=== PATIENT | male | born 1970 | race Two or more races ===

== ENCOUNTER → 2016-12-18 | Emergency (ER) | payer MEDICAID, MEDICARE | END | disposition left against medical advice (07) | LOC: ER 22:37 | DX: M79.673 Pain in unspecified foot (principal); Z53.21 Procedure and treatment not carried out due to patient leaving prior to being seen by health care provider ==

== ENCOUNTER 2017-05-08 15:55 | Emergency (ER) | payer MEDICARE ==
[~2017-05-08] VITALS: Ht 182.9 cm; Wt 113.4 kg
[2017-05-08 19:00] VITALS: BP 146/73
== END 2017-05-08 19:21 | disposition home or self-care (01) ==
LOC: ER 15:59
DX: L02.11 Cutaneous abscess of neck (principal); I10 Essential (primary) hypertension; F17.210 Nicotine dependence, cigarettes, uncomplicated

== ENCOUNTER 2018-11-10 23:50 | Emergency (ER) | payer MEDICARE, OTHER ==
[~2018-11-10] VITALS: Ht 180.3 cm; Wt 111.1 kg
[2018-11-11] MEDS ORDERED: KETOROLAC TROMETH 60MG/2ML VIAL IM ONE (03:30)
[2018-11-11] MEDS ORDERED: methylPREDNISolone SOD SUCC 125 MG/2 ML VL IM ONE (03:30)
[2018-11-11 04:37] VITALS: BP 141/88
== END 2018-11-11 04:15 | disposition home or self-care (01) ==
LOC: ER 23:54
DX: M54.42 Lumbago with sciatica, left side (principal); I10 Essential (primary) hypertension; F17.210 Nicotine dependence, cigarettes, uncomplicated
CPT/HCPCS: 72100; 96372; 99283; J1885; J2930

== ENCOUNTER 2019-11-04 01:21 | Emergency (ER) | payer SELFPAY ==
[~2019-11-04] VITALS: Ht 182.9 cm; Wt 113.4 kg
[2019-11-04 03:20] VITALS: BP 131/80
== END 2019-11-04 04:43 | disposition home or self-care (01) ==
LOC: ER 01:21
DX: H91.8X3 Other specified hearing loss, bilateral (principal); M13.862 Other specified arthritis, left knee; G89.29 Other chronic pain; M54.9 Dorsalgia, unspecified; F17.210 Nicotine dependence, cigarettes, uncomplicated
CPT/HCPCS: 73562

== ENCOUNTER 2019-12-21 12:52 | Emergency (ER) | payer OTHER ==
[~2019-12-21] VITALS: Ht 180.3 cm; Wt 95.3 kg
[2019-12-21] MEDS ORDERED: SODIUM CHLORIDE 0.9% 1,000 ML IVB ONE (13:25)
[2019-12-21 14:03] LABS: Basophils # (auto) 0 10 ^3/uL (0-0.2); Basophils % (auto) 0.3 % (0.0-2.0); Eosinophils # (auto) 0 10 ^3/uL (0-0.8); Eosinophils % (auto) 0.3 % (0.0-7.0); Hemoglobin 15.2 g/dL (13.5-17.5); Lymphocytes % (auto) 8.7 % (10.0-50.0); Mean Corpuscular Hgb Conc. 33.1 g/dL (32.0-36.0); Mean Corpuscular Volume 87.5 fL (80.0-100.0); Monocytes # (auto) 0.4 10 ^3/uL (0-1.3); Monocytes % (auto) 3.7 % (0.0-12.0); Neutrophils # (auto) 10.5 10 ^3/uL (1.6-8.6); Platelet Count (auto) 264 10^3/uL (140-450); Red Blood Cells 5.26 10^6/uL (4.5-5.90); Red Cell Distribution Width 14.2 % (11.8-14.3); White Blood Cell 12.1 10^3/uL (4.4-10.8)
[2019-12-21 14:23] LABS: Albumin 3.8 g/dL (3.4-5.0); Calcium 8.7 mg/dL (8.5-10.1); Magnesium 2.2 mg/dL (1.6-2.6); Potassium 3.7 mmol/L (3.5-5.1)
[2019-12-21 14:27] LABS: BUN/Creatinine Ratio 14.6; Bilirubin, Total 0.5 mg/dL (0.2-1.0); Total Protein 7.5 g/dL (6.4-8.2)
[2019-12-21 14:33] LABS: Urine Bacteria FEW /hpf (None Seen); Urine Blood 1+ /uL (Negative); Urine Specific Gravity 1.016 (1.001-1.035); Urine WBC 1 /hpf (0 - 3)
[2019-12-21] MEDS ORDERED: PANTOPRAZOLE 40 MG TAB PO ONE (15:00)
[2019-12-21 15:07] LABS: Amphetamine Screen, Urine POSITIVE (NEGATIVE); Barbiturate Scree,Urine NEGATIVE (NEGATIVE); Benzodiazephine Screen, Urine NEGATIVE (NEGATIVE); Cannabinoid Screen, Urine NEGATIVE (NEGATIVE); Cocaine Screen, Urine NEGATIVE (NEGATIVE); Opiate Scree,Urine NEGATIVE (NEGATIVE); Phencyclidine Screen, Urine NEGATIVE (NEGATIVE)
[2019-12-21] MEDS ORDERED: cefTRIAXone 1GM/50ML D5W 50 ML IV ONE (17:00)
[2019-12-21 20:00] VITALS: BP 140/83
== END 2019-12-21 20:30 | disposition short-term general hospital (02) ==
LOC: ER 12:52 → EDBD 12:52 → ER 20:30
DX: K80.10 Calculus of gallbladder with chronic cholecystitis without obstruction (principal); I10 Essential (primary) hypertension; F17.210 Nicotine dependence, cigarettes, uncomplicated
CPT/HCPCS: 36415; 71045; 74176; 76705; 80053; 80307; 81001; 82150; 83690; 83735; 84484; 85025; 93005; 96365; 99285; J0696; J7030; 96375

== ENCOUNTER 2020-06-22 15:43 | Emergency (ER) | payer OTHER | END 2020-06-22 17:50 | disposition left against medical advice (07) | LOC: ER 15:43 | DX: R07.89 Other chest pain (principal); F41.9 Anxiety disorder, unspecified; I10 Essential (primary) hypertension; F17.210 Nicotine dependence, cigarettes, uncomplicated | CPT/HCPCS: 93005 ==

== ENCOUNTER 2020-06-25 15:53 | Inpatient (IN) | payer OTHER ==
[~2020-06-25] VITALS: Ht 182.9 cm; Wt 107.1 kg
[2020-06-25] MEDS ORDERED: InsuLIN REG 1unit/0.01ml Soln (100units/ml) IV ONE (17:30)
[2020-06-25 17:36] LABS: Albumin 3.1 g/dL (3.4-5.0); Anion Gap 13 (5-15); Blood Urea Nitrogen 13 mg/dL (7-18); Calcium 8.5 mg/dL (8.5-10.1); Carbon Dioxide 21 mmol/L (21-32); Chloride 88 mmol/L (98-107); Potassium 4.4 mmol/L (3.5-5.1); Sodium 122 mmol/L (136-145)
[2020-06-25 17:38] LABS: Alanine Aminotransferase 50 U/L (16-61); Aspartate Aminotransferase 23 U/L (15-37); Bilirubin, Total 0.4 mg/dL (0.2-1.0); GFR African American 61 mL/min; GFR Non-African American 50 mL/min; Total Protein 6.8 g/dL (6.4-8.2)
[2020-06-25 17:39] LABS: Basophils # (auto) 0.1 10 ^3/uL (0-0.2); Basophils % (auto) 0.7 % (0.0-2.0); Eosinophils # (auto) 0.1 10 ^3/uL (0-0.8); Eosinophils % (auto) 0.9 % (0.0-7.0); Hematocrit 43.4 % (41.0-53.0); Hemoglobin 13.9 g/dL (13.5-17.5); Lymphocytes # (auto) 1.4 10 ^3/uL (0.4-5.4); Lymphocytes % (auto) 16.3 % (10.0-50.0); Mean Corpuscular Hemoglobin 29.3 pg (28.0-32.0); Mean Corpuscular Volume 91.3 fL (80.0-100.0); Monocytes # (auto) 0.5 10 ^3/uL (0-1.3); Monocytes % (auto) 5.5 % (0.0-12.0); Neutrophils # (auto) 6.7 10 ^3/uL (1.6-8.6); Neutrophils % (auto) 76.6 % (37.0-80.0); Nucleated Red Blood Cells % 0.2 %; Platelet Count (auto) 257 10^3/uL (140-450); Red Blood Cells 4.75 10^6/uL (4.5-5.90); Red Cell Distribution Width 14.2 % (11.8-14.3); White Blood Cell 8.8 10^3/uL (4.4-10.8)
[2020-06-25 17:44] LABS: Alkaline Phosphatase 121 U/L (45-117)
[2020-06-25] MEDS ORDERED: SODIUM CHLORIDE 0.9% 1,000 ML IV ONE ×2 (18:00)
[2020-06-25 18:07] LABS: BUN/Creatinine Ratio 8.4
[2020-06-25 18:08] LABS: Glucose 854 mg/dL (74-106)
[2020-06-26] MEDS ORDERED: InsuLIN REG 1unit/0.01ml Soln (100units/ml) IV ONE (04:30)
[2020-06-26] MEDS ORDERED: DEXTROSE (50%) 50ML SYRG IV PRN ×2 (05:15→12:15)
[2020-06-26] MEDS ORDERED: TEMAZEPAM 15 MG CAP PO PRN (05:15)
[2020-06-26] MEDS ORDERED: ACETAMINOPHEN 325 MG TAB PO PRN (05:15)
[2020-06-26] MEDS ORDERED: ONDANSETRON HCL 4 MG/2 ML VIAL IV PRN (05:15)
[2020-06-26] MEDS: ACCU-CHEK COMFORT CURVE STRIP VI SCH ×4 (06:00→21:38)
[2020-06-26 06:30] LABS: BUN/Creatinine Ratio 11.5; Calcium 8.5 mg/dL (8.5-10.1); Potassium 3.4 mmol/L (3.5-5.1)
[2020-06-26] MEDS: SODIUM CHLORIDE 0.9% 1,000 ML IV SCH ×2 (06:35→18:30)
[2020-06-26] MEDS: InsuLIN REG 1unit/0.01ml Soln (100units/ml) SC SCH ×4 (06:42→21:40)
[2020-06-26] MEDS: FAMOTIDINE 20 MG TAB PO SCH ×2 (09:12→21:38)
[2020-06-26] MEDS: amLODIPine BESYLATE 5 MG TAB PO SCH (09:20)
[2020-06-26 09:22] VITALS: BP 129/56
[2020-06-26] MEDS ORDERED: POTASSIUM CHL 20 Meq TABLET PO ONE (12:15)
[2020-06-26] MEDS ORDERED: metFORMIN HYDROCHLORIDE 500 MG TAB PO ONE (12:15)
[2020-06-26 13:00] VITALS: BP 129/68
--- NOTE | 2020-06-26 15:04 | NUR ---
MOIRA SMALL states they want to leave the floor Against Medical Advice (AMA) to go outside and smoke. Patient encouraged to stay on floor and not smoke. Patient advised of the risks of leaving AMA. Patient verbalized understanding and signed required AMA form no distress noted on departure patient ambulated independently.
[2020-06-26 17:00] VITALS: BP 125/59
[2020-06-26] MEDS ORDERED: AMLO5TAB15 PO (17:59)
[2020-06-26] MEDS ORDERED: MELO1TAB56 PO (17:59)
[2020-06-26] MEDS ORDERED: HYDR-531 PO (17:59)
--- NOTE | 2020-06-26 18:01 | NUR ---
Patient's called and provided list of current home meds, updated on [facility]. [facility]
[2020-06-26] MEDS: metFORMIN HYDROCHLORIDE 500 MG TAB PO SCH (18:14)
[2020-06-26 22:00] VITALS: BP 121/68
[2020-06-27] MEDS: SODIUM CHLORIDE 0.9% 1,000 ML IV SCH (04:47)
[2020-06-27 05:00] VITALS: BP 131/71
[2020-06-27 06:16] LABS: BUN/Creatinine Ratio 12.1; Calcium 8.2 mg/dL (8.5-10.1); Potassium 3.7 mmol/L (3.5-5.1)
[2020-06-27] MEDS: InsuLIN REG 1unit/0.01ml Soln (100units/ml) SC SCH ×2 (06:55→12:14)
[2020-06-27] MEDS: ACCU-CHEK COMFORT CURVE STRIP VI SCH ×2 (06:55→12:13)
[2020-06-27] MEDS: metFORMIN HYDROCHLORIDE 500 MG TAB PO SCH (08:00)
[2020-06-27 09:00] VITALS: BP 127/77
[2020-06-27] MEDS: amLODIPine BESYLATE 5 MG TAB PO SCH (10:05)
[2020-06-27] MEDS: FAMOTIDINE 20 MG TAB PO SCH (10:05)
--- NOTE | 2020-06-27 10:08 | NUR ---
at bedside MD Estes at bedside, aware of patient's status including labs, VS. MD spoke to patient extensively regarding Diagnosis and diabetes care at home including f/u with [facility] in one week. Patient aware he needs to call to change PCP and make own appointment he verbalized understanding. Patient returned demonstration of accu checks on self. Patient states he will go home to his "mother's house and she will pick him up" he states he wants to drop off new prescriptions at [facility] on his way home. Patient verbalized understanding. Will dc as ordered.
[2020-06-27] MEDS ORDERED: metFORMIN HYDROCHLORIDE 500 MG TAB PO ONE (10:30)
[2020-06-27 11:02] VITALS: BP 127/77
--- NOTE | 2020-06-27 11:13 | NUR ---
[id number] 06/27/20 - Faxed to [employer] nurse case management at [phone], order for home safety and diabetic evaluation, H/P and current progress note.pending review and set up of home health. Addendum: 06/27/20 at 1338 by Isa Driscoll RN [id number] 06/27/20 - Contacted by [employer] nurse case management Tomeka who stated patient has been accepted by [facility] who can be reached at [phone], Tomeka also stated services will start in 24-48 hours after discharge.
[2020-06-27 11:14] LABS: Urine Bacteria NONE SEEN /hpf (None Seen); Urine Blood Negative /uL (Negative); Urine Specific Gravity 1.029 (1.001-1.035); Urine WBC <1 /hpf (0 - 3)
--- NOTE | 2020-06-27 11:25 | NUR ---
assessment Patient is a 50 year old male who is alert and oriented. Patient did not want to speak to social service. I did inform patient he has a consult for safety and diabetic teaching. Patient said he agrees to home health. Patient did not want to talk about anything else or give any information. I infomred patient if he changed his mind to call me. I left my extension with patient. Isa commissions manager will satisfy home health order with [facility] commissions manager. Addendum: 06/27/20 at 1628 by Ester CARMICHAEL Amended: Links added.
--- NOTE | 2020-06-27 12:30 | NUR ---
Discharge instructions given as ordered. Encourage to follow up with PMD as instructed. All questions and concerns addressed. Patient verbalized understanding. Medication reconciliation form completed and copy given to patient. New prescriptions given to patient, and educated on need for use including s/e, s/s and contraindications. IV removed with catheter intact, pressure dressing applied. Patient awaiting ride at this time, no distress or sob noted at this time.
[2020-06-27 13:00] VITALS: BP 125/69
--- NOTE | 2020-06-27 13:21 | NUR ---
Patient ambulated to vehicle independently refused wheelchair. Patient ambulated with all personal belongings, His mother is waiting in ER parking at this time. No distress noted at time of departure.
[2020-06-27] MEDS ORDERED: metFORMIN HYDROCHLORIDE 500 MG TAB PO SCH (18:00)
== END 2020-06-27 14:00 | disposition home or self-care (01) | DRG 638 ==
LOC: ER 15:53 → OVERFLOW 15:54 → WEST WING 06-26 09:28
PROVIDERS: ADMIT Nurse Practitioner; ATTEND Internal Medicine Geriatric Medicine
DX: E11.65 Type 2 diabetes mellitus with hyperglycemia (principal); N17.9 Acute kidney failure, unspecified; E87.1 Hypo-osmolality and hyponatremia; E44.0 Moderate protein-calorie malnutrition; F17.210 Nicotine dependence, cigarettes, uncomplicated; E86.0 Dehydration; E87.6 Hypokalemia; I10 Essential (primary) hypertension; Z82.49 Family history of ischemic heart disease and other diseases of the circulatory system; Z68.29 Body mass index [BMI] 29.0-29.9, adult; Z91.19 Patient's noncompliance with other medical treatment and regimen; F12.90 Cannabis use, unspecified, uncomplicated
CPT/HCPCS: 36415; 71045; 80048; 80053; 81001; 82962; 83036; 84484; 85025; 93005; G0378; J1815

== ENCOUNTER 2020-07-01 08:24 | Emergency (ER) | payer OTHER ==
[~2020-07-01] VITALS: Ht 182.9 cm; Wt 99.8 kg
[~2020-07-01 08:24] MED LIST: AMLO5TAB15 PO; HYDR-531 PO; MELO1TAB56 PO
[2020-07-01] MEDS ORDERED: SODIUM CHLORIDE 0.9% 1,000 ML IV ONE ×2 (08:45→13:45)
[2020-07-01 09:53] LABS: Basophils # (auto) 0 10 ^3/uL (0-0.2); Basophils % (auto) 0.5 % (0.0-2.0); Eosinophils # (auto) 0.1 10 ^3/uL (0-0.8); Eosinophils % (auto) 1.5 % (0.0-7.0); Hematocrit 37.8 % (41.0-53.0); Hemoglobin 12.5 g/dL (13.5-17.5); Lymphocytes # (auto) 1.2 10 ^3/uL (0.4-5.4); Lymphocytes % (auto) 14.7 % (10.0-50.0); Mean Corpuscular Hemoglobin 28.7 pg (28.0-32.0); Mean Corpuscular Hgb Conc. 33.1 g/dL (32.0-36.0); Mean Corpuscular Volume 86.9 fL (80.0-100.0); Monocytes # (auto) 0.6 10 ^3/uL (0-1.3); Monocytes % (auto) 7.1 % (0.0-12.0); Neutrophils # (auto) 6.3 10 ^3/uL (1.6-8.6); Neutrophils % (auto) 76.2 % (37.0-80.0); Platelet Count (auto) 210 10^3/uL (140-450); Red Blood Cells 4.35 10^6/uL (4.5-5.90); Red Cell Distribution Width 13.7 % (11.8-14.3); White Blood Cell 8.3 10^3/uL (4.4-10.8)
[2020-07-01 10:07] LABS: Albumin 2.9 g/dL (3.4-5.0); Calcium 7.9 mg/dL (8.5-10.1); Potassium 4.3 mmol/L (3.5-5.1)
[2020-07-01 10:16] LABS: BUN/Creatinine Ratio 14.6; Bilirubin, Total 0.5 mg/dL (0.2-1.0)
[2020-07-01 10:29] LABS: Urine Bacteria NONE SEEN /hpf (None Seen); Urine Blood Negative /uL (Negative); Urine Specific Gravity 1.026 (1.001-1.035); Urine WBC 1 /hpf (0 - 3)
[2020-07-01] MEDS ORDERED: InsuLIN REG 1unit/0.01ml Soln (100units/ml) IV ONE (11:30)
[2020-07-01] MEDS ORDERED: INSULIN LISPRO (HUMAN) 100 UNITS/ML ML SC ONE (13:30)
[2020-07-01 14:43] VITALS: BP 145/76
== END 2020-07-01 15:32 | disposition left against medical advice (07) ==
LOC: EDBD 08:24 → ER 08:24
DX: E11.65 Type 2 diabetes mellitus with hyperglycemia (principal); F17.210 Nicotine dependence, cigarettes, uncomplicated; I10 Essential (primary) hypertension; Z91.19 Patient's noncompliance with other medical treatment and regimen
CPT/HCPCS: 36415; 80053; 81001; 82962; 83690; 83735; 84443; 85025; 96361; 96372; 96374; 99285; J1815; J7030

== ENCOUNTER 2021-05-24 07:30 | Emergency (ER) | payer OTHER ==
[~2021-05-24] VITALS: Ht 182.9 cm; Wt 99.8 kg
[~2021-05-24 07:30] MED LIST changes: +AMLO-489 PO; -AMLO5TAB15 PO
[2021-05-24] MEDS ORDERED: cefTRIAXone SOD 1,000 MG VL IM ONE (09:15)
[2021-05-24] MEDS ORDERED: IBUPROFEN 800 MG TAB PO ONE (09:15)
[2021-05-24 09:53] VITALS: BP 139/89
== END 2021-05-24 10:00 | disposition home or self-care (01) ==
LOC: ER 07:30 → EDBD 07:30 → ER 09:58
DX: K04.7 Periapical abscess without sinus (principal); E11.9 Type 2 diabetes mellitus without complications; I10 Essential (primary) hypertension; F17.210 Nicotine dependence, cigarettes, uncomplicated; Z79.899 Other long term (current) drug therapy
CPT/HCPCS: 96372; 99283; J0696

== ENCOUNTER 2021-12-10 19:41 | Emergency (ER) | payer OTHER ==
[~2021-12-10] VITALS: Ht 182.9 cm; Wt 104.3 kg
[2021-12-10 19:42] VITALS: BP 149/83
== END 2021-12-10 22:26 | disposition home or self-care (01) ==
LOC: ER 19:44
DX: K04.7 Periapical abscess without sinus (principal); E11.9 Type 2 diabetes mellitus without complications; I10 Essential (primary) hypertension; F17.210 Nicotine dependence, cigarettes, uncomplicated

== ENCOUNTER 2022-10-04 16:36 | Inpatient (IN) | payer OTHER ==
[~2022-10-04] VITALS: Ht 182.9 cm; Wt 108.3 kg
[2022-10-04] MEDS ORDERED: SODIUM CHLORIDE 0.9% 1,000 ML IV ONE ×2 (17:45)
[2022-10-04] MEDS ORDERED: InsuLIN REG 1unit/0.01ml Soln (100units/ml) IV ONE (17:45)
[2022-10-04 18:35] LABS: Basophils # (auto) 0.1 10 ^3/uL (0-0.2); Basophils % (auto) 0.9 % (0.0-2.0); Eosinophils # (auto) 0.2 10 ^3/uL (0-0.8); Eosinophils % (auto) 2.2 % (0.0-7.0); Hematocrit 50.3 % (41.0-53.0); Hemoglobin 15.9 g/dL (13.5-17.5); Lymphocytes # (auto) 2.6 10 ^3/uL (0.4-5.4); Lymphocytes % (auto) 23.3 % (10.0-50.0); Mean Corpuscular Hemoglobin 27.8 pg (28.0-32.0); Mean Corpuscular Hgb Conc. 31.7 g/dL (32.0-36.0); Mean Corpuscular Volume 87.6 fL (80.0-100.0); Monocytes # (auto) 0.7 10 ^3/uL (0-1.3); Monocytes % (auto) 5.8 % (0.0-12.0); Neutrophils # (auto) 7.6 10 ^3/uL (1.6-8.6); Neutrophils % (auto) 67.8 % (37.0-80.0); Red Blood Cells 5.74 10^6/uL (4.5-5.90); Red Cell Distribution Width 13.7 % (11.8-14.3); White Blood Cell 11.2 10^3/uL (4.4-10.8)
[2022-10-04 18:38] LABS: Albumin 3.5 g/dL (3.4-5.0); BUN/Creatinine Ratio 11.5; Calcium 9.4 mg/dL (8.5-10.1); Potassium 4.3 mmol/L (3.5-5.1)
[2022-10-04 18:40] LABS: Bilirubin, Total 0.3 mg/dL (0.2-1.0); Total Protein 7.1 g/dL (6.4-8.2)
[2022-10-04 20:11] VITALS: BP 123/90
[2022-10-04] MEDS ORDERED: SODIUM CHLORIDE 0.9% 1,000 ML IV SCH (22:15)
[2022-10-04] MEDS ORDERED: ACETAMINOPHEN 325 MG TAB PO PRN (22:15)
[2022-10-04] MEDS ORDERED: DOCUSATE SOD 100 MG CAP PO PRN (22:15)
[2022-10-04] MEDS ORDERED: ONDANSETRON HCL 4 MG/2 ML VIAL IV PRN (22:15)
[2022-10-04] MEDS ORDERED: DEXTROSE (50%) 50ML SYRG IV PRN (22:15)
[2022-10-04] MEDS ORDERED: cefTRIAXone 1GM/50ML D5W 50 ML IV ONE (22:15)
[2022-10-04] MEDS ORDERED: HYDROcodone-ACET 5/325MG TAB PO PRN (22:15)
[2022-10-04] MEDS ORDERED: MORPHINE SULFATE INJ 2 MG/ml SYRG IV PRN (23:15)
[2022-10-04] MEDS ORDERED: NITROGLYCERIN 0.4 MG SL TAB SL PRN (23:15)
[2022-10-05] MEDS ORDERED: ACCU-CHEK COMFORT CURVE STRIP VI SCH
[2022-10-05] MEDS ORDERED: InsuLIN REG 1unit/0.01ml Soln (100units/ml) SC SCH
[2022-10-05] MEDS ORDERED: ASPirin 81 mg TAB PO SCH (10:00)
[2022-10-05] MEDS ORDERED: ATORVASTATIN 20 MG TAB PO SCH (22:00)
[2022-10-05] MEDS ORDERED: cefTRIAXone 1GM/50ML D5W 50 ML IV SCH (22:00)
== END 2022-10-05 05:27 | disposition left against medical advice (07) | DRG 638 ==
LOC: ER 16:40 → OVERFLOW 23:09
PROVIDERS: ADMIT Nurse Practitioner Family; ATTEND Nurse Practitioner Family
DX: E11.65 Type 2 diabetes mellitus with hyperglycemia (principal); E87.1 Hypo-osmolality and hyponatremia; D72.829 Elevated white blood cell count, unspecified; F17.210 Nicotine dependence, cigarettes, uncomplicated; I10 Essential (primary) hypertension; M79.642 Pain in left hand; R51.9 Headache, unspecified; Z20.822 Contact with and (suspected) exposure to COVID-19; Z53.29 Procedure and treatment not carried out because of patient's decision for other reasons; R07.9 Chest pain, unspecified; Z82.3 Family history of stroke; Z90.49 Acquired absence of other specified parts of digestive tract; Z79.4 Long term (current) use of insulin
CPT/HCPCS: 36415; 36600; 80053; 82805; 82962; 84484; 84702; 85025; 87426; 96361; 96365; 96372; 96375; G0378; J0696; J1815

== ENCOUNTER 2023-03-29 14:21 | Emergency (ER) | payer OTHER ==
[~2023-03-29] VITALS: Ht 182.9 cm; Wt 102.1 kg
[~2023-03-29 14:21] MED LIST changes: -AMLO-489 PO; +AMLO1TAB22 PO; +MELO-335 PO; -MELO1TAB56 PO
[2023-03-29 14:32] VITALS: TEMP 97
[2023-03-29] MEDS ORDERED: LACTATED RINGER'S 1,000 ML IV ONE (15:45)
[2023-03-29] MEDS ORDERED: METOCLOPRAMIDE HCL 5MG/ml INJ 2ml VIAL IV ONE (15:45)
[2023-03-29] MEDS ORDERED: TETANUS-DIPTH-ACEL PERTUSSIS 0.5ML SYR Tdap IM ONE (15:45)
[2023-03-29] MEDS ORDERED: TETRACAINE HCL 0.5% OPTH(EYE) SOLN 4ML EACHEYE ONE (15:45)
[2023-03-29] MEDS ORDERED: HYDROmorphone HCL 2 MG/ML VL/or syr IV ONE (15:45)
[2023-03-29] MEDS ORDERED: NEOMYCIN-BACITRACIN-POLYM UNITDOSE PKG TOP OINT TOP ONE (15:45)
[2023-03-29] MEDS ORDERED: KETOROLAC TROMETH 30 MG/ML 1ML VIAL IV ONE (15:45)
[2023-03-29 15:53] VITALS: PULSE 88; RESP 18; O2SAT 98
[2023-03-29] MEDS ORDERED: ACET-1304 PO (18:01)
[2023-03-29] MEDS ORDERED: NAPR-957 PO (18:01)
[2023-03-29] MEDS ORDERED: NEOMOIN6 EX (18:01)
[2023-03-29 19:00] VITALS: BP 135/109; PULSE 73; RESP 20; O2SAT 98
== END 2023-03-29 19:58 | disposition home or self-care (01) ==
LOC: ER 14:21
DX: T20.10XA Burn of first degree of head, face, and neck, unspecified site, initial encounter (principal); T26.01XA Burn of right eyelid and periocular area, initial encounter; T31.0 Burns involving less than 10% of body surface; T79.9XXA Unspecified early complication of trauma, initial encounter; I10 Essential (primary) hypertension; E11.9 Type 2 diabetes mellitus without complications; E78.5 Hyperlipidemia, unspecified; F17.210 Nicotine dependence, cigarettes, uncomplicated; Z90.49 Acquired absence of other specified parts of digestive tract; Z98.890 Other specified postprocedural states; Z79.1 Long term (current) use of non-steroidal anti-inflammatories (NSAID); Z79.899 Other long term (current) drug therapy; X08.8XXA Exposure to other specified smoke, fire and flames, initial encounter; Y93.89 Activity, other specified; Y92.098 Other place in other non-institutional residence as the place of occurrence of the external cause; Y99.8 Other external cause status
CPT/HCPCS: 90471; 90715; 96361; 96374; 96375; 99284; J1170; J1885; J2765

== ENCOUNTER 2023-08-05 18:18 | Emergency (ER) | payer OTHER ==
[~2023-08-05] VITALS: Ht 182.9 cm; Wt 104.7 kg
[~2023-08-05 18:18] MED LIST changes: +ACET-1304 PO; +NAPR-957 PO; +NEOMOIN6 EX
[2023-08-05] MEDS ORDERED: SODIUM CHLORIDE 0.9% 2,000 ML IV ONE (18:45)
[2023-08-05] MEDS ORDERED: InsuLIN REG 1unit/0.01ml Soln (100units/ml) SC ONE ×2 (19:00→22:30)
[2023-08-05 19:22] LABS: Basophils # (auto) 0.1 10 ^3/uL (0-0.2); Basophils % (auto) 0.7 % (0.0-2.0); Eosinophils # (auto) 0.2 10 ^3/uL (0-0.8); Eosinophils % (auto) 1.7 % (0.0-7.0); Hematocrit 47.9 % (41.0-53.0); Hemoglobin 15.8 g/dL (13.5-17.5); Lymphocytes # (auto) 2.7 10 ^3/uL (0.4-5.4); Lymphocytes % (auto) 25.7 % (10.0-50.0); Mean Corpuscular Hemoglobin 28.5 pg (28.0-32.0); Mean Corpuscular Hgb Conc. 32.9 g/dL (32.0-36.0); Mean Corpuscular Volume 86.5 fL (80.0-100.0); Monocytes # (auto) 0.5 10 ^3/uL (0-1.3); Neutrophils % (auto) 66.9 % (37.0-80.0); Nucleated Red Blood Cells % 0.2 %; Red Blood Cells 5.54 10^6/uL (4.5-5.90); Red Cell Distribution Width 13.9 % (11.8-14.3); White Blood Cell 10.5 10^3/uL (4.4-10.8)
[2023-08-05 19:32] LABS: Base Excess -0.5 mmol/L (-2.0-2.0)
[2023-08-05 19:38] LABS: Alanine Aminotransferase 30 U/L (7-40); Albumin 4.4 g/dL (3.2-4.8); Alkaline Phosphatase 119 U/L (46-116); Anion Gap 7 (5-15); Aspartate Aminotransferase 8 U/L (13-40); BUN/Creatinine Ratio 9.2 (10.0-20.0); Bilirubin, Total 0.3 mg/dL (0.2-1.0); Blood Urea Nitrogen 15 mg/dL (9-23); Calcium 9.4 mg/dL (8.7-10.4); Carbon Dioxide 28 mmol/L (20-30); Chloride 97 mmol/L (98-107); Potassium 4.4 mmol/L (3.5-5.1); Sodium 132 mmol/L (136-145)
[2023-08-05 19:44] LABS: Glucose 506 mg/dL (74-106)
[2023-08-05] MEDS ORDERED: INSU1INJ19 SC (23:00)
[2023-08-05] MEDS ORDERED: INSU100I28 IJ (23:00)
[2023-08-05 23:26] VITALS: BP 138/89; PULSE 87; RESP 18; TEMP 98.3; O2SAT 97
== END 2023-08-05 23:26 | disposition home or self-care (01) ==
LOC: ER 18:18
DX: E11.65 Type 2 diabetes mellitus with hyperglycemia (principal); I10 Essential (primary) hypertension; E78.5 Hyperlipidemia, unspecified; F17.210 Nicotine dependence, cigarettes, uncomplicated; Z98.890 Other specified postprocedural states; Z79.4 Long term (current) use of insulin; Z79.899 Other long term (current) drug therapy
CPT/HCPCS: 36415; 36600; 71045; 80053; 82010; 82805; 83605; 83690; 84484; 85025; 87040; 96360; 96361; 99284; J1815; J7030

== ENCOUNTER 2023-09-08 16:48 | Emergency (ER) | payer OTHER, MEDICAID ==
[~2023-09-08] VITALS: Ht 182.9 cm; Wt 100.0 kg
[~2023-09-08 16:48] MED LIST changes: +INSU100I28 IJ; +INSU1INJ19 SC
[2023-09-08 18:49] VITALS: BP 135/101; PULSE 102; RESP 18; TEMP 97.9; O2SAT 98
[2023-09-08] MEDS ORDERED: BENZOCAINE (DENTAL) 20 % SPRAY 60ML MT ONE (19:15)
== END 2023-09-08 20:05 | disposition home or self-care (01) ==
LOC: ER 16:48
DX: K14.8 Other diseases of tongue (principal); K14.6 Glossodynia; I10 Essential (primary) hypertension; E11.9 Type 2 diabetes mellitus without complications; E78.5 Hyperlipidemia, unspecified; F17.210 Nicotine dependence, cigarettes, uncomplicated; Z98.890 Other specified postprocedural states; Z79.899 Other long term (current) drug therapy

== ENCOUNTER 2024-03-14 21:42 | Emergency (ER) | payer MEDICAID, OTHER ==
[~2024-03-14] VITALS: Ht 182.9 cm; Wt 102.7 kg
[2024-03-14 21:42] VITALS: BP 144/84; PULSE 104; RESP 14; O2SAT 98
[~2024-03-14 21:42] MED LIST changes: -MELO-335 PO; +MELO15TA29 PO
== END 2024-03-15 05:59 | disposition left against medical advice (07) ==
LOC: ER 21:42
DX: R42 Dizziness and giddiness (principal); E11.9 Type 2 diabetes mellitus without complications
CPT/HCPCS: 80053

== ENCOUNTER 2025-03-10 22:46 | Emergency (ER) | payer OTHER ==
[~2025-03-10] VITALS: Ht 182.9 cm; Wt 104.5 kg
[2025-03-10 23:05] VITALS: BP 144/83; PULSE 72; RESP 20; TEMP 97.5; O2SAT 97
[2025-03-10] MEDS: DICYCLOMINE HCL (10MG/ML) 2 ML AMPULE IM ONE (23:15)
[2025-03-10] MEDS: ONDANSETRON HCL 4 MG/2 ML VIAL IM ONE (23:15)
[2025-03-10 23:26] LABS: Basophils # (auto) 0.1 10 ^3/uL (0-0.2); Basophils % (auto) 0.6 % (0.0-2.0); Eosinophils # (auto) 0.2 10 ^3/uL (0-0.8); Hematocrit 44.1 % (41.0-53.0); Hemoglobin 14.9 g/dL (13.5-17.5); Lymphocytes # (auto) 1.9 10 ^3/uL (0.4-5.4); Lymphocytes % (auto) 12.7 % (10.0-50.0); Mean Corpuscular Hemoglobin 28.2 pg (28.0-32.0); Mean Corpuscular Hgb Conc. 33.9 g/dL (32.0-36.0); Mean Corpuscular Volume 83.3 fL (80.0-100.0); Monocytes # (auto) 0.8 10 ^3/uL (0-1.3); Monocytes % (auto) 5.3 % (0.0-12.0); Neutrophils # (auto) 12.3 10 ^3/uL (1.6-8.6); Neutrophils % (auto) 80.4 % (37.0-80.0); Platelet Count (auto) 295 10^3/uL (140-450); Red Cell Distribution Width 14.4 % (11.8-14.3); White Blood Cell 15.4 10^3/uL (4.4-10.8)
[2025-03-10 23:42] LABS: Alanine Aminotransferase 18 U/L (7-40); Albumin 4.5 g/dL (3.2-4.8); Alkaline Phosphatase 101 U/L (46-116); Anion Gap 9 (5-15); Aspartate Aminotransferase 12 U/L (<34); BUN/Creatinine Ratio 11.8 (10.0-20.0); Bilirubin, Total 0.6 mg/dL (0.2-1.0); Blood Urea Nitrogen 14 mg/dL (9-23); Calcium 9.8 mg/dL (8.7-10.4); Carbon Dioxide 26 mmol/L (20-31); Chloride 102 mmol/L (98-107); Potassium 3.6 mmol/L (3.5-5.1); Sodium 137 mmol/L (136-145); Total Protein 7.1 g/dL (5.7-8.2)
[2025-03-10 23:51] LABS: Blood Alcohol < 3.0 mg/dL (<10); Glucose 157 mg/dL (74-106)
[2025-03-11 00:10] LABS: Lipase 29 U/L (12-53)
[2025-03-11] MEDS ORDERED: HYDROmorphone HCL 2 MG/ML VL/or syr IM ONE (01:45)
--- NOTE | 2025-03-11 01:49 | ED.PDOC ---
GI ASSESSMENT HPI Comments This patient is a morbidly obese 54-year-old male who arrives the ED today with complaints of [id number] bilateral lower abdominal pain with nausea and vomiting since earlier this afternoon after eating some possibly spoiled food. Patient states the symptoms came on this afternoon and have been unrelenting throughout the day. Patient denies any history of intra-abdominal concerns. Patient denies any recent travel or new food sources. Patient denies any fever but states intermittent nausea. Vital signs were stable on arrival. Chief Complaint: Abdominal Pain Time Seen by MD: 22:52 Primary Care Provider: NONE Reviewed Notes: Nurses Notes Allergies: Coded Allergies: NO KNOWN ALLERGIES (Unverified , 04/17/14) Home Meds Active Scripts Insulin Glargine (Basaglar Kwikpen) 100 Unit/Ml Inj, 10 UNIT SC DAILY@LUNCH for 31 Days, #1 INJ Prov:RAHUL PENA DO 08/05/23 Insulin Aspart (Novolog) 100 Unit/Ml Inj, 10 UNIT IJ DAILY@BREAKFAST for 31 Days, #1 INJ Prov:RAHUL PENA DO 08/05/23 Acetaminophen (Tylenol Extra Strength) 500 Mg Tab, 500 MG PO BID, #30 TAB Prov:JING US MD 03/29/23 Naproxen (Naproxen) 375 Mg Tab, 1 TAB PO BID, #60 TAB 1 Refill Prov:JING US MD 03/29/23 Keljoshp-Ynxnrvdufy-Rmduddkhq- (Neosporin + Pain Relief) Relf Max Oin, 1 MAX EX TID, #120 OIN Prov:JING US MD 03/29/23 Reported Medications Hydrocodone-Acetaminophen (Jewett 10-325 mg) 1 Tab Tab, 1 TAB PO TIDPRN PRN for PAIN SCALE 7 THRU 10, TAB 06/26/20 Amlodipine Besylate (Amlodipine Besylate) 5 Mg Tab, 10 MG PO BID for 30 Days, MG 06/26/20 Meloxicam (Meloxicam) 15 Mg Tab, 1 TAB PO BID, #30 TAB 2 Refills 06/26/20 Information Source: Patient Mode of Arrival: Ambulatory Timing: Days Duration: Since onset Prehospital treatment: None Quality: Aching, Cramping Vomitus: Bilious, Food Particles, Soft, Watery Severity: Moderate Recent: Possible spoiled food Recent Hx of: None Pain Location: Diffuse, RLQ, LLQ, None Modifying Factors: Food Associated sign and symptoms: Nausea, Vomiting, Abdominal Pain Past Medical History PAST MEDICAL HISTORY: DM, High Lipids, HTN Surgical History: Cholecystectomy Family History Family History: Reviewed,noncontributory to illness, Family hx of HTN Social History Smoker: Cigarettes, Less Than 1 Pack/Day Alcohol: Occasionally Drugs: Denies Drug Use Lives In: Home Constitutional: denies: chills, diaphoresis, fatigue, fever, malaise, sweats, weakness, others EENTM: denies: blurred vision, double vision, ear bleeding, ear discharge, ear drainage, ear pain, ear ringing, eye pain, eye redness, hearing loss, mouth pain, mouth swelling, nasal discharge, nose bleeding, nose congestion, nose pain, photophobia, tearing, throat pain, throat swelling, voice changes, others Respiratory: denies: cough, hemoptysis, orthopnea, SOB at rest, shortness of breath, SOB with excertion, stridor, wheezing, others Cardiovascular: denies: chest pain, dizzy spells, diaphoresis, Dyspnea on exert ion, edema, irregular heart beat, left arm pain, lightheadedness, palpitations, PND, syncope, others Gastrointestinal: reports: abdominal pain, nausea, vomiting; denies: abdomen distended, blood streaked bowels, constipated, diarrhea, dysphagia, difficulty swallowing, hematemesis, melena, poor appetite, poor fluid intake, rectal bleeding, rectal pain, others Genitourinary: denies: burning, dysuria, flank pain, frequency, hematuria, incontinence, penile discharge, penile sore, pain, testicle pain, testicle swelling, urgency, others Neurological: denies: dizziness, fainting, headache, left sided numbness, left sided weakness, numbness, paresthesia, pre-existing deficit, right sided numbness, right sided weakness, seizure, speech problems, tingling, tremors, w eakness, others Musculoskeletal: denies: back pain, gout, joint pain, joint swelling, muscle pain, muscle stiffness, neck pain, others Integumetry: denies: bruises, change in color, change in hair/nails, dryness, laceration, lesions, lumps, rash, wounds, others Allergic/Immunocompromised: denies: Difficulty Healing, Frequent Infections, Hives, Itching, others Hematologic/Lymphatic: denies: anemia, blood clots, easy bleeding, easy bruising, swollen glands, others Endocrine: denies: excessive hunger, excessive sweating, excessive thirst, excessive urination, flushing, intolerance to cold, intolerance to heat, unexplained weight gain, unexplained weight loss, others Psychiatric: denies: anxiety, bipolar disorder, depression, hopeless, panic disorder, schizophrenia, sleepless, suicidal, others Physical Exam General Appearance: Moderate Distress (Moderate distress due to abdominal pain concerns.), Obese HEENT: Normal ENT Inspection, Pharynx Normal, TMs Normal Neck: Full Range of Motion, Non-Tender, Normal, Normal Inspection Respiratory: Chest Non-Tender, Lungs Clear, No Accessory Muscle Use, No Respiratory Distress, Normal Breath Sounds Cardiovascular: No Edema, No JVD, No Murmur, No Gallop, Normal Peripheral Pulses, Regular Rate/Rhythm Breast Exam: Deferred Gastrointestinal: Other (Diffuse bilateral lower quadrant tenderness to palpation throughout. Abdomen was mildly rigid. No pulsatile masses. Patient is in pain.) Genitalia: Deferred Pelvic: Deferred Rectal: Deferred Extremities: No calf tenderness, Normal capillary refill, Normal inspection, Normal range of motion, Non-tender, No pedal edema Neurologic: Alert, No Motor Deficits, No Sensory Deficits Cerebellar Function: NOT DONE Reflexes: NOT DONE Skin: Dry, Normal Color, Warm Lymphatic: No Adenopathy Was a procedure done? Was a procedure done?: No GI differential Dx Differential Diagnosis: Appendicitis, Bowel Obstruction, Cholangitis, Cholecystitis, Constipation, Diverticular disease, Gastritis/PUD, Gastroent eritis, Pancreatitis, UTI X-Ray, Labs, Meds, VS Vital Signs Date Time Temp Pulse Resp B/P (MAP) Pulse Ox O2 Delivery O2 Flow Rate FiO2 03/10/25 23:05 97.5 72 20 144/83 (103) 97 97.5 Lab Test 03/11/25 00:18 03/10/25 23:17 03/10/25 23:08 Range/Units Troponin I High Sensitivity 3 L 3 L </=54 ng/L Urine Color Pending Urine Clarity Pending Urine pH Pending Urine Specific [place] Pending Urine Protein Pending Urine Ketones Pending Urine Blood Pending Urine Nitrite Pending Urine Bilirubin Pending Urine Urobilinogen Pending Urine Leukocyte Esterase Pending Urine RBC Pending Urine Microscopic WBC Pending Urine Squamous Epithelial Cells Pending Urine Bacteria Pending Urine Glucose Pending Urine Opiates Screen Pending Urine Fentanyl Screen Pending Urine Barbiturates Screen Pending Urine Phencyclidine Screen Pending Urine Amphetamines Screen Pending Urine Benzodiazepines Screen Pending Urine Cocaine Screen Pending Urine Cannabinoids Screen Pending White Blood Count 15.4 H 4.4-10.8 10^3/uL Red Blood Count 5.30 4.5-5.90 10^6/uL Hemoglobin 14.9 13.5-17.5 g/dL Hematocrit 44.1 41.0-53.0 % Mean Corpuscular Volume 83.3 80.0-100.0 fL Mean Corpuscular Hemoglobin 28.2 28.0-32.0 pg Mean Corpuscular Hemoglobin Concent 33.9 32.0-36.0 g/dL Red Cell Distribution Width 14.4 H 11.8-14.3 % Platelet Count 295 140-450 10^3/uL Mean Platelet Volume 8.0 6.9-10.8 fL Neutrophils (%) (Auto) 80.4 H 37.0-80.0 % Lymphocytes (%) (Auto) 12.7 10.0-50.0 % Monocytes (%) (Auto) 5.3 0.0-12.0 % Eosinophils (%) (Auto) 1.0 0.0-7.0 % Basophils (%) (Auto) 0.6 0.0-2.0 % Neutrophils # (Auto) 12.3 H 1.6-8.6 10 ^3/uL Lymphocytes # (Auto) 1.9 0.4-5.4 10 ^3/uL Monocytes # (Auto) 0.8 0-1.3 10 ^3/uL Eosinophils # (Auto) 0.2 0-0.8 10 ^3/uL Basophils # (Auto) 0.1 0-0.2 10 ^3/uL Nucleated Red Blood Cells 0.0 % Sodium Level 137 136-145 mmol/L Potassium Level 3.6 3.5-5.1 mmol/L Chloride Level 102 98-107 mmol/L Carbon Dioxide Level 26 20-31 mmol/L Anion Gap 9 5-15 Blood Urea Nitrogen 14 9-23 mg/dL Creatinine 1.19 0.700-1.30 mg/dL Glomerular Filtration Rate Calc 72 >90 mL/min BUN/Creatinine Ratio 11.8 10.0-20.0 Serum Glucose 157 H 74-106 mg/dL Lactic Acid Level 1.9 0.4-2.0 mmol/L Calcium Level 9.8 8.7-10.4 mg/dL Total Bilirubin 0.6 0.2-1.0 mg/dL Aspartate Amino Transferase (AST) 12 <34 U/L Alanine Aminotransferase (ALT) 18 7-40 U/L Alkaline Phosphatase 101 46-116 U/L Total Protein 7.1 5.7-8.2 g/dL Albumin 4.5 3.2-4.8 g/dL Lipase 29 12-53 U/L Plasma/Serum Blood Alcohol < 3.0 <10 mg/dL Current Medications Medications (Trade) Dose Ordered Sig/Ray Route Start Time Stop Time Status Last Admin Dicyclomine HCl (Bentyl Injection) 20 mg ONCE ONCE IM 03/10/25 23:15 03/10/25 23:16 DC 03/10/25 23:15 Ondansetron HCl (Zofran) 4 mg ONCE ONCE IM 03/10/25 23:15 03/10/25 23:16 DC 03/10/25 23:15 X-Ray, Labs, Meds, VS Comment All studies performed by the ED were evaluated by me personally. Urinalysis and CT studies were pending at time of this note. Serum studies were remarkable for a mild leukocytosis. Patient did not respond well to initial pain medication. Patient seems to have pain out of proportion to his recent history. Urinalysis and CT imaging will be reviewed once returned. Patient at this point in time will be admitted for intractable abdominal pain. This 54-year-old male was endorsed to me by ZAN Martinez to follow-up on CT and UA results. CT abdomen and pelvis was consistent with acute appendicitis UA and urine drug screen are still pending as of 233 Patient was placed NPO, 2 L 0.9 normal saline IV bolus and Zosyn 4.5 g IV were ordered. Stat surgical consultation for Dr. Burgess was placed. Time of 1ST Reevaluation: 01:48 Reevaluation 1ST: Improved Consultation: PCP Patient Education/Counseling: Diagnosis, Treatment Family Education/Counseling: Diagnosis, Treatment SEPSIS Sepsis Screen Date sepsis recognized/suspect: Mar 10, 2025 Time Sepsis recognized/suspect: 2304 Recent Procedure: No On Antibiotic Therapy: No Respiratory Rate >20: No Heart Rate >90: No Temp<36 C (96.8 F) or >38.3 C: No SBP <90 or MAP <65 mmHG: No New Acute Mental Status Change: No Is the patient on CPAP, BIPAP,: No Physician Orders Urinalysis (03/10/25 23:01) Drug Screen (03/10/25 23:01) Electrocardigram (03/10/25 23:01) Ct Ab Pel Wo Con-No Oral Or Iv (03/11/25 01:38) Vital Signs Date Time Temp Pulse Resp B/P (MAP) Pulse Ox O2 Delivery O2 Flow Rate FiO2 03/10/25 23:05 97.5 72 20 144/83 (103) 97 97.5 Laboratory Tests Test 03/10/25 23:08 Lactic Acid Level 1.9 mmol/L (0.4-2.0) White Blood Count 15.4 10^3/uL (4.4-10.8) H Medications Medications Dose Ordered Sig/Ray Route Start Time Stop Time Status Last Admin Dose Admin Dicyclomine HCl 20 mg ONCE ONCE IM 03/10/25 23:15 03/10/25 23:16 DC 03/10/25 23:15 Ondansetron HCl 4 mg ONCE ONCE IM 03/10/25 23:15 03/10/25 23:16 DC 03/10/25 23:15 Departure 1 Departure Time of Disposition: 01:48 Impression: Primary Impression: Intractable abdominal pain Additional Impressions: Leukocytosis Acute appendicitis Disposition: 09 ADMITTED INPATIENT Admit to: Med Surg Condition: Fair Discharged With: Self Critical Care Note Critical Care Time?: No Stability Stability form required: No Heart Score Heart Score: Heart Score Response (Comments) Value History N/A 0 EKG N/A 0 Age N/A 0 Risk Factors N/A 0 Troponin N/A 0 Total 0 GABRIELLA MARTINEZ Mar 11, 2025 01:49 SHELLEY GOYAL MD Mar 11, 2025 02:35
[2025-03-11 02:22] LABS: Urine Bacteria None Seen /hpf (None Seen)
[2025-03-11] MEDS ORDERED: SODIUM CHLORIDE 0.9% 2,000 ML IV ONE (02:30)
[2025-03-11] MEDS ORDERED: PIPERACILLIN-TAZO 4.5GM 100 ML IV ONE (02:30)
[2025-03-11 02:33] LABS: Urine Blood Negative /uL (Negative); Urine Clarity Clear (Clear); Urine Color Yellow (Yellow); Urine Mucus FEW (None Seen); Urine Protein, UAD Negative (Negative); Urine Specific Gravity 1.027 (1.001-1.035); Urine Squamous Epithelial Cell None Seen /hpf (<5); Urine Urobilinogen Normal (Negative); Urine WBC < 1 /HPF (0-3)
--- NOTE | 2025-03-11 02:33 | DVH ---
Exam: CT CT AB PEL WO CON-NO ORAL OR IV History: Diffuse bilateral lower abdominal pain Comparison Study: CT ABD PELVIS WO CONTRAST on DOS: 12/21/19 Technique: Multidetector spiral CT of the abdomen was performed from lung bases to pubic symphysis. I maging was performed without IV contrast. Axial, coronal and sagittal multiplanar reformats were obta ined from the axial data set by the technologist. Radiation Dose : 1. Abdomen/Pelvis: CTDIvol 19.64 mGy, DLP 1264.17 mGy*cm. Findings: Evaluation of solid organs is limited due to lack of intravenous contrast use. Lung Bases: No acute or significant lung base finding. Normal heart size. No pleural or pericardial effusion. Liver: The liver is normal in size. No focal lesions. Gallbladder and Biliary Tree: Status post cholecystectomy. Spleen: Unremarkable Pancreas: The pancreas is grossly normal in appearance. Adrenal Glands: Unremarkable Kidneys: Kidneys are grossly normal without calculi or hydronephrosis. Bladder: Grossly unremarkable for degree of distention. Bowel: The stomach is grossly normal in appearance. Small bowel and colon are normal in caliber and d istribution. The appendix is dilated and fluid-filled, measuring up to 17 mm in diameter with a proxi mal appendicolith and moderate periappendiceal inflammatory changes. No evidence of perforation or pe riappendiceal abscess. Ascites: Absent Lymphadenopathy: No mesenteric, retroperitoneal or periportal lymphadenopathy. Abdominal Wall and Mesentery: Unremarkable. Vasculature: The visualized abdominal aorta is normal in size and caliber. Evaluation of abdominal a nd pelvic vessels is limited due to lack of intravenous contrast. Pelvic Organs: Unremarkable Musculoskeletal: No aggressive focal bony lesions, acute fractures or dislocation. IMPRESSION: 1. Acute non perforated appendicitis. Critical Result: Acute appendicitis Findings discussed with SHELLEY FRYE at 03/11/2025 02:29 AM, and acknowledged receipt and understand ing of the findings. Radiation optimization: All CT scans at this facility use at least one of these dose optimization tony hniques: automated exposure control mA and/or kV adjustment per patient size (includes targeted exam s where dose is matched to clinical indication) or iterative reconstruction.
[2025-03-11 03:39] LABS: Amphetamine Screen, Urine Pos (NEGATIVE); Barbiturate Scree,Urine Neg (NEGATIVE); Benzodiazephine Screen, Urine Neg (NEGATIVE); Cocaine Screen, Urine Neg (NEGATIVE)
[2025-03-11 03:40] LABS: Cannabinoid Screen, Urine Neg (NEGATIVE); Opiate Scree,Urine Neg (NEGATIVE); Phencyclidine Screen, Urine Neg (NEGATIVE)
== END 2025-03-11 03:02 | disposition left against medical advice (07) ==
LOC: ER 22:46
DX: K35.80 Unspecified acute appendicitis (principal); I10 Essential (primary) hypertension; E11.9 Type 2 diabetes mellitus without complications; E78.5 Hyperlipidemia, unspecified; Z90.49 Acquired absence of other specified parts of digestive tract; F17.210 Nicotine dependence, cigarettes, uncomplicated; Z79.899 Other long term (current) drug therapy
CPT/HCPCS: 36415; 74176; 80053; 80307; 80320; 81001; 83605; 83690; 84484; 85025; 96372; 99284; J0500; J2405

== ENCOUNTER 2025-03-12 09:42 | Inpatient (IN) | payer OTHER ==
[~2025-03-12] VITALS: Ht 182.9 cm; Wt 108.2 kg
--- NOTE | 2025-03-12 10:07 | ED.PDOC ---
History of Present Illness HPI Comments 54-year-old male presents with a chief complaint of abdominal pain x 3 days. Patient was seen here on 03/10/2025, but eloped. Patient had a CT scan done that day and it showed acute appendicitis. Patient is also experiencing nausea and vomiting. Chief Complaint: Flank Pain Time Seen by MD: 09:55 Primary Care Provider: JESSENIA Swanson Notes: Medications, Allergies Allergies: Coded Allergies: NO KNOWN ALLERGIES (Unverified , 04/17/14) Home Meds Active Scripts Insulin Glargine (Basaglar Kwikpen) 100 Unit/Ml Inj, 10 UNIT SC DAILY@LUNCH for 31 Days, #1 INJ Prov:KEJEOVANNY GREWALG S DO 08/05/23 Insulin Aspart (Novolog) 100 Unit/Ml Inj, 10 UNIT IJ DAILY@BREAKFAST for 31 Days, #1 INJ Prov:BECKYNILESHMistiGREGORYNupur S DO 08/05/23 Acetaminophen (Tylenol Extra Strength) 500 Mg Tab, 500 MG PO BID, #30 TAB Prov:JING US MD 03/29/23 Naproxen (Naproxen) 375 Mg Tab, 1 TAB PO BID, #60 TAB 1 Refill Prov:JING US MD 03/29/23 Hkaljaaj-Hvttxqxkib-Dpridgcwn- (Neosporin + Pain Relief) Relf Max Oin, 1 MAX EX TID, #120 OIN Prov:JING US MD 03/29/23 Reported Medications Hydrocodone-Acetaminophen ([place] 10-325 mg) 1 Tab Tab, 1 TAB PO TIDPRN PRN for PAIN SCALE 7 THRU 10, TAB 06/26/20 Amlodipine Besylate (Amlodipine Besylate) 5 Mg Tab, 10 MG PO BID for 30 Days, MG 06/26/20 Meloxicam (Meloxicam) 15 Mg Tab, 1 TAB PO BID, #30 TAB 2 Refills 06/26/20 Information Source: Patient Mode of Arrival: EMS Severity: Moderate Timing: Days Duration: Since onset Prehospital treatment: None Past Medical History PAST MEDICAL HISTORY: DM, High Lipids, HTN Surgical History: Cholecystectomy Family History Family History: Reviewed,noncontributory to illness, Family hx of HTN Social History Smoker: Cigarettes, Less Than 1 Pack/Day Alcohol: Occasionally Drugs: Denies Drug Use Lives In: Home Constitutional: denies: chills, diaphoresis, fatigue, fever, malaise, sweats, weakness, others EENTM: denies: blurred vision, double vision, ear bleeding, ear discharge, ear drainage, ear pain, ear ringing, eye pain, eye redness, hearing loss, mouth pain, mouth swelling, nasal discharge, nose bleeding, nose congestion, nose pain, photophobia, tearing, throat pain, throat swelling, voice changes, others Respiratory: denies: cough, hemoptysis, orthopnea, SOB at rest, shortness of breath, SOB with excertion, stridor, wheezing, others Cardiovascular: denies: chest pain, dizzy spells, diaphoresis, Dyspnea on exertion, edema, irregular heart beat, left arm pain, lightheadedness, palpitations, PND, syncope, others Gastrointestinal: reports: abdominal pain, nausea, vomiting; denies: abdomen distended, blood streaked bowels, constipated, diarrhea, dysphagia, difficulty swallowing, hematemesis, melena, poor appetite, poor fluid intake, rectal bleeding, rectal pain, others Genitourinary: denies: burning, dysuria, flank pain, frequency, hematuria, incontinence, penile discharge, penile sore, pain, testicle pain, testicle swelling, urgency, others Neurological: denies: dizziness, fainting, headache, left sided numbness, left sided weakness, numbness, paresthesia, pre-existing deficit, right sided numbness, right sided weakness, seizure, speech problems, tingling, tremors, weakness, others Musculoskeletal: denies: back pain, gout, joint pain, joint swelling, muscle pain, muscle stiffness, neck pain, others Integumetry: denies: bruises, change in color, change in hair/nails, dryness, laceration, lesions, lumps, rash, wounds, others Allergic/Immunocompromised: denies: Difficulty Healing, Frequent Infections, H leo, Itching, others Hematologic/Lymphatic: denies: anemia, blood clots, easy bleeding, easy bruising, swollen glands, others Endocrine: denies: excessive hunger, excessive sweating, excessive thirst, excessive urination, flushing, intolerance to cold, intolerance to heat, unexplained weight gain, unexplained weight loss, others Psychiatric: denies: anxiety, bipolar disorder, depression, hopeless, panic disorder, schizophrenia, sleepless, suicidal, others All Other Systems: Reviewed and Negative Physical Exam General Appearance: Moderate Distress, Normal HEENT: Normal ENT Inspection, Pharynx Normal, TMs Normal Neck: Full Range of Motion, Non-Tender, Normal, Normal Inspection Respiratory: Chest Non-Tender, Lungs Clear, No Accessory Muscle Use, No Respiratory Distress, Normal Breath Sounds Cardiovascular: No Edema, No JVD, No Murmur, No Gallop, Normal Peripheral Pulses, Regular Rate/Rhythm Breast Exam: Deferred Gastrointestinal: Diffuse, No Pulsatile Mass, Normal Bowel Sounds, Soft Genitalia: Deferred Pelvic: Deferred Rectal: Deferred Extremities: No calf tenderness, Normal capillary refill, Normal inspection, Normal range of motion, Non-tender, No pedal edema Musculoskeletal : Apperance: Normal Neurologic: Alert, seafood team member II-XII nml as Tested, No Motor Deficits, Normal Affect, Normal Mood, No Sensory Deficits Cerebellar Function: Normal Reflexes: Normal Skin: Dry, Normal Color, Warm Peripheral Pulses: 3+ Radial (R), 3+ Radial (L) Lymphatic: No Adenopathy Was a procedure done? Was a procedure done?: No Differential Dx Considerations may include: Appendicitis Electrolyte imbalance X-Ray, Labs, Meds, VS Vital Signs Date Time Temp Pulse Resp B/P (MAP) Pulse Ox O2 Delivery O2 Flow Rate FiO2 03/12/25 11:01 108 17 96 Room Air 03/12/25 11:01 98.7 108 16 109/66 (80) 96 98.7 03/12/25 09:49 98.2 98 16 123/84 (97) 98 98.2 Lab Test 03/12/25 10:12 Range/Units White Blood Count 22.8 #H 4.4-10.8 10^3/uL Red Blood Count 5.60 4.5-5.90 10^6/uL Hemoglobin 16.1 13.5-17.5 g/dL Hematocrit 47.1 41.0-53.0 % Mean Corpuscular Volume 84.0 80.0-100.0 fL Mean Corpuscular Hemoglobin 28.6 28.0-32.0 pg Mean Corpuscular Hemoglobin Concent 34.1 32.0-36.0 g/dL Red Cell Distribution Width 14.2 11.8-14.3 % Platelet Count 276 140-450 10^3/uL Mean Platelet Volume 8.1 6.9-10.8 fL Neutrophils (%) (Auto) 88.9 H 37.0-80.0 % Lymphocytes (%) (Auto) 5.5 L 10.0-50.0 % Monocytes (%) (Auto) 5.3 0.0-12.0 % Eosinophils (%) (Auto) 0.1 0.0-7.0 % Basophils (%) (Auto) 0.2 0.0-2.0 % Neutrophils # (Auto) 20.3 H 1.6-8.6 10 ^3/uL Lymphocytes # (Auto) 1.2 0.4-5.4 10 ^3/uL Monocytes # (Auto) 1.2 0-1.3 10 ^3/uL Eosinophils # (Auto) 0 0-0.8 10 ^3/uL Basophils # (Auto) 0.1 0-0.2 10 ^3/uL Nucleated Red Blood Cells 0.0 % Prothrombin Time 11.7 9.3-11.8 sec Prothrombin Time INR 1.12 0.9-1.15 Activated Partial Thromboplast Time 28.5 24.5-34.5 SEC Sodium Level 130 #L 136-145 mmol/L Potassium Level 3.9 3.5-5.1 mmol/L Chloride Level 96 L 98-107 mmol/L Carbon Dioxide Level 25 20-31 mmol/L Anion Gap 9 5-15 Blood Urea Nitrogen 17 9-23 mg/dL Creatinine 1.30 0.700-1.30 mg/dL Glomerular Filtration Rate Calc 64 >90 mL/min BUN/Creatinine Ratio 13.1 10.0-20.0 Serum Glucose 222 H 74-106 mg/dL Calcium Level 9.8 8.7-10.4 mg/dL Patient alert. Complaining of abdominal pain. Vitals stable. Answering questions. Recently at this hospital was diagnosed with a appendicitis. Left without waiting. CT scan of the abdomen reviewed does show a appendicitis. Blood sugar elevated. WBC elevated. Sepsis workup. Surgical consultation. Explained to the patient. Continue monitoring. Time of 1ST Reevaluation: 10:25 Reevaluation 1ST: Unchanged Patient Education/Counseling: Diagnosis, Treatment, Need For Follow Up Family Education/Counseling: No Family Present SEPSIS Sepsis Screen Date sepsis recognized/suspect: Mar 12, 2025 Time Sepsis recognized/suspect: 948 Recent Procedure: No On Antibiotic Therapy: No Respiratory Rate >20: No Heart Rate >90: Yes Temp<36 C (96.8 F) or >38.3 C: No SBP <90 or MAP <65 mmHG: No New Acute Mental Status Change: No Is the patient on CPAP, BIPAP,: No Physician Orders Urinalysis (03/12/25 10:04) Ct Ab Pel With Iv Con Only (03/12/25 10:25) Vital Signs Date Time Temp Pulse Resp B/P (MAP) Pulse Ox O2 Delivery O2 Flow Rate FiO2 03/12/25 11:01 108 17 96 Room Air 03/12/25 11:01 98.7 108 16 109/66 (80) 96 98.7 03/12/25 09:49 98.2 98 16 123/84 (97) 98 98.2 Laboratory Tests Test 03/12/25 10:12 White Blood Count 22.8 10^3/uL (4.4-10.8) #H Departure 1 Departure Time of Disposition: 11:59 Impression: Primary Impression: Acute appendicitis Qualified Codes: K35.32 - Acute appendicitis with perforation, localized peritonitis, and gangrene, without abscess Additional Impressions: Sepsis, unspecified organism Qualified Codes: A41.9 - Sepsis, unspecified organism Uncontrolled diabetes mellitus Qualified Codes: E13.65 - Other specified diabetes mellitus with hyperglycemia Disposition: ADMITTED INPATIENT Admit to: Med Surg Condition: Guarded Critical Care Note Critical Care Time?: Yes (90 min-critical care time only) Critical care comment: Acute appendicitis sepsis Stability Stability form required: No Heart Score Heart Score: Heart Score Response (Comments) Value History N/A 0 EKG N/A 0 Age N/A 0 Risk Factors N/A 0 Troponin N/A 0 Total 0 I personally scribed for HANH KAUR MD ([email or web address]) on 03/12/25 at 10:07. Electronically submitted by Noel Bustillos ([email or web address]). HANH KAUR MD Mar 12, 2025 10:07
[2025-03-12 10:33] LABS: Hematocrit 47.1 % (41.0-53.0); Hemoglobin 16.1 g/dL (13.5-17.5); Mean Corpuscular Hemoglobin 28.6 pg (28.0-32.0); Mean Corpuscular Volume 84.0 fL (80.0-100.0); Nucleated Red Blood Cells % 0.0 %
[2025-03-12 10:40] LABS: Potassium 3.9 mmol/L (3.5-5.1)
[2025-03-12 10:41] LABS: Anion Gap 9 (5-15); Carbon Dioxide 25 mmol/L (20-31)
[2025-03-12 10:42] LABS: Calcium 9.8 mg/dL (8.7-10.4); Chloride 96 mmol/L (98-107); Sodium 130 mmol/L (136-145)
[2025-03-12 10:46] LABS: Glucose 222 mg/dL (74-106)
[2025-03-12 10:48] LABS: INR 1.12 (0.9-1.15); Partial Thromboplastin Time 28.5 SEC (24.5-34.5); Prothrombin Time 11.7 sec (9.3-11.8)
[2025-03-12 11:06] LABS: BUN/Creatinine Ratio 13.1 (10.0-20.0); Blood Urea Nitrogen 17 mg/dL (9-23)
--- NOTE | 2025-03-12 11:14 | DVH ---
CT abdomen and pelvis done with contrast Comparison: 03/11/2025 INDICATION: appy TECHNIQUE: Serial axial images were performed through the abdomen and pelvis and then reformatted in the sagittal and coronal plane following IV administration of 100 mL O[address]ip[address] 300. All CT scans at [facility] facility are performed using dose modulation techniques as appropriate to a performed exa m including the following: Automated exposure control was utilized; adjustment of the MA and/or KvP a ccording to patient size; and use of iterative reconstruction technique. FINDINGS: Lung bases clear. Liver and spleen are normal in size without focal mass. No renal masses, stones or hydronephrosis. No masses or enlargement of the adrenal glands or pancreas. No biliary dilatation. Gallbladder has been removed. No distention of bowel loops to suggest mechanical obstruction of bowel. The appendix is thick walled and distended. There is edema in the periappendiceal and pericecal mese nteric fat. No free fluid. Within the pelvis, bladder is smooth walled without stones. No abnormal masses or fluid collections. IMPRESSION: 1. Findings consistent with acute appendicitis as on previous exam. On the current study there is ed nahomy in the periappendiceal mesentery suggesting micro perforation Computed Tomographic Radiation Dosimetry Report: Total CTDI vol = 23 mGy Total DLP = 1496 mGy-cm Low dose protocols were performed.
[2025-03-12] MEDS: LACTATED RINGER'S 2,350 ML IV ONE (12:15)
--- NOTE | 2025-03-12 12:29 | DVH ---
AP portable chest CLINICAL INDICATION: sob Comparison: 08/05/2023 FINDINGS: Heart size is normal. No infiltrates or effusions. Degenerative changes in the thoracic spi ne. IMPRESSION: 1. No acute cardiopulmonary pathology
[2025-03-12] MEDS ORDERED: ACETAMINOPHEN 325 MG TAB PO PRN (12:30)
[2025-03-12] MEDS ORDERED: ONDANSETRON HCL 4 MG/2 ML VIAL IV PRN ×2 (12:30→17:30)
[2025-03-12] MEDS ORDERED: VANCOMYCIN PER PHARMACY 0 MG IV SCH (12:30)
--- NOTE | 2025-03-12 12:56 | DVHHP2 ---
History of Present Illness Reason for Visit: Abdominal pain History of Present Illness A 54-year-old male with past medical history of type 2 diabetes mellitus, hyperlipidemia, hypertension, and tobacco use approximately one pack per week, presents to the emergency department with complaint of worsening abdominal pain for the past three days. The patient reports associated nausea and vomiting and states he is now unable to tolerate oral intake without vomiting. The patient was seen in the ED two days ago for similar complaints, and a CT scan of the abdomen and pelvis at that time revealed findings consistent with early acute appendicitis without perforation. However, the patient eloped from the ED prior to receiving treatment or completing the evaluation. He now returns with progressive worsening symptoms. Repeat CT abdomen/pelvis today demonstrate persistent acute appendicitis with new periappendiceal mesenteric edema concerning for microperforation. Past Medical History As stated in HPI Past Surgical History Cholecystectomy Family History Reviewed, non-contributory to the management of this case. Past Social History Tobacco use one pack per week Denies illicit drug or ETOH abuse Review of Systems Constitutional: Yes: Malaise; No: Fever, Chills, Sweats, Weakness, Other Eyes: No: Pain, Vision change, Conjunctivae inflammation, Eyelid inflammation, Other, Redness ENT: No: Ear pain, Ear discharge, Nose pain, Nose discharge, Nose congestion, Mouth pain, Mouth swelling, Throat pain, Throat swelling, Other Respiratory: No: Cough, Dry, Shortness of breath, SOB with excertion, Wheezing, Hemoptysis, Pleuritic Pain, Sputum, Wheezing, Other Cardiovascular: No: Chest Pain, Palpitations, Orthopnea, Paroxysmal Noc. Dyspnea, Edema, Lt Headedness, Other Gastrointestinal: Nausea, Vomiting, Abdominal Pain, Other (Abdominal pain, nausea, vomiting, unable to tolerate oral intake); No: Diarrhea, Constipation, Melena, Hematochezia Genitourinary: No Dysuria, No Frequency, No Incontinence, No Hematuria, No Retention, No Other Musculoskeletal: No: other, neck pain, shoulder pain, arm pain, back pain, hand pain, leg pain, foot pain Skin: No: Rash, Lesions, Jaundice, Bruising, Other Neurological: No: Weakness, Numbness, Incoordination, Change in speech, Confusion, Seizures, Other Allergies: Coded Allergies: NO KNOWN ALLERGIES (Unverified , 04/17/14) Medications Current Medications Medications Dose Ordered Sig/Ray Route Start Time Stop Time Status Last Admin Dose Admin Cefepime HCl 50 ml @ 12.5 mls/hr Q8HR IV 03/12/25 22:00 Exam Vital Signs Vital Signs Date Time Temp Pulse Resp B/P (MAP) Pulse Ox O2 Delivery O2 Flow Rate FiO2 03/12/25 11:01 108 17 96 Room Air 03/12/25 11:01 98.7 109/66 (80) 98.7 General Appearance: Alert, Oriented X3, Cooperative, moderate distress HEENT: Atraumatic, PERRLA, EOMI Respiratory: Clear to auscultation, Normal air movement Cardiovascular: Regular rate, Normal S1, Normal S2 Abdominal: Other (Distended, tender in lower abdomen and right lower quadrant, rebound tenderness present, guarding noted, decreased bowel sounds) Extremities: No clubbing, No cyanosis, No edema, Normal pulses Skin: No rashes, No breakdown, No significant lesion Neuro: Normal gait, Normal speech, Strength at 5/5 X4 ext, Normal tone Psych/Mental Status: Mental status NL Labs/Xrays Labs Test 03/12/25 10:12 Range/Units White Blood Count 22.8 #H 4.4-10.8 10^3/uL Red Blood Count 5.60 4.5-5.90 10^6/uL Hemoglobin 16.1 13.5-17.5 g/dL Hematocrit 47.1 41.0-53.0 % Mean Corpuscular Volume 84.0 80.0-100.0 fL Mean Corpuscular Hemoglobin 28.6 28.0-32.0 pg Mean Corpuscular Hemoglobin Concent 34.1 32.0-36.0 g/dL Red Cell Distribution Width 14.2 11.8-14.3 % Platelet Count 276 140-450 10^3/uL Mean Platelet Volume 8.1 6.9-10.8 fL Neutrophils (%) (Auto) 88.9 H 37.0-80.0 % Lymphocytes (%) (Auto) 5.5 L 10.0-50.0 % Monocytes (%) (Auto) 5.3 0.0-12.0 % Eosinophils (%) (Auto) 0.1 0.0-7.0 % Basophils (%) (Auto) 0.2 0.0-2.0 % Neutrophils # (Auto) 20.3 H 1.6-8.6 10 ^3/uL Lymphocytes # (Auto) 1.2 0.4-5.4 10 ^3/uL Monocytes # (Auto) 1.2 0-1.3 10 ^3/uL Eosinophils # (Auto) 0 0-0.8 10 ^3/uL Basophils # (Auto) 0.1 0-0.2 10 ^3/uL Nucleated Red Blood Cells 0.0 % Prothrombin Time 11.7 9.3-11.8 sec Prothrombin Time INR 1.12 0.9-1.15 Activated Partial Thromboplast Time 28.5 24.5-34.5 SEC PROCEDURE(s): ABPLIV - CT AB PEL WITH IV CON ONLY REASON: appy ORDER NUMBER(s): [id number], ACCESSION NUMBER(s): [id number] CT abdomen and pelvis done with contrast Comparison: 03/11/2025 INDICATION: appy TECHNIQUE: Serial axial images were performed through the abdomen and pelvis and then reformatted in the sagittal and coronal plane following IV administration of 100 mL [address] All CT scans at this medical facility are performed using dose modulation techniques as appropriate to a performed exam including the following: Automated exposure control was utilized; adjustment of the MA and/or KvP according to patient size; and use of iterative reconstruction technique. FINDINGS: Lung bases clear. Liver and spleen are normal in size without focal mass. No renal masses, stones or hydronephrosis. No masses or enlargement of the adrenal glands or pancreas. No biliary dilatation. Gallbladder has been removed. No distention of bowel loops to suggest mechanical obstruction of bowel. The appendix is thick walled and distended. There is edema in the periappendiceal and pericecal mesenteric fat. No free fluid. Within the pelvis, bladder is smooth walled without stones. No abnormal masses or fluid collections. IMPRESSION: 1. Findings consistent with acute appendicitis as on previous exam. On the current study there is edema in the periappendiceal mesentery suggesting micro perforation Assessment/Plan Assessment/Plan #Acute appendicitis, with new periappendiceal mesenteric edema concerning for microperforation # Rule out Sepsis Admit to medical-surgical unit NPO Vancoeliezersyn Pain control IV fluids Surgical consult # diabetes type 2 Insulin sliding scale NPO Check A1c # hyperlipidemia Check lipid panel # hypertension Monitor # tobacco use 1 pack per week Nicotine patch Smoking cessation counseled Medical plan discussed with patient Plan discussed with: Patient My Orders Orders - THOM VALLE Procedure Category Date Status Time Admit ADMIT 03/12/25 Verified 12:17 Code Status CODE 03/12/25 Verified 12:17 0.9% Ns 1000 Ml PHA 03/12/25 Verified 12:30 Hydrocodone-Acet PHA 03/12/25 Verified 5/325mg Tab ([place] 12:30 Ondansetron Hcl PHA 03/12/25 Verified (Zofran) 12:30 Npo (Nothing By DIET 03/12/25 Verified Mouth) Diet Lunch Condition: Fair MURIEL 03/12/25 Verified 12:17 Acetaminophen Tablet PHA 03/12/25 Verified (Tylenol Tablet) 12:30 Morphine Sulfate PHA 03/12/25 Verified Injection 12:30 PTPTT LAB 03/12/25 Verified 12:17 Vancomycin PHA 03/12/25 Verified 12:30 Zosyn Extended PHA 03/12/25 Verified Infusion 14:00 Date of Service: Mar 12, 2025 Billing Provider: THOM VALLE Common Visit Codes: [id number] INP/OBS CARE (HIGH) THOM VALLE Mar 12, 2025 12:56
[2025-03-12 12:59] LABS: Alanine Aminotransferase 19 U/L (7-40); Alkaline Phosphatase 104 U/L (46-116); Calcium 9.7 mg/dL (8.7-10.4)
[2025-03-12 13:00] LABS: Albumin 4.5 g/dL (3.2-4.8); Anion Gap 12 (5-15); BUN/Creatinine Ratio 13.0 (10.0-20.0); Blood Urea Nitrogen 17 mg/dL (9-23); Carbon Dioxide 22 mmol/L (20-31); Potassium 3.9 mmol/L (3.5-5.1); Total Protein 7.4 g/dL (5.7-8.2)
[2025-03-12 13:01] LABS: Bilirubin, Total 1.4 mg/dL (0.2-1.0); Chloride 97 mmol/L (98-107); Glucose 222 mg/dL (74-106); Sodium 131 mmol/L (136-145)
--- NOTE | 2025-03-12 13:07 | DVHINCON2 ---
Consultation - Surgical Date Seen: Mar 12, 2025 Referring Physician Reason for Consultation ABDOMINAL PAIN,APPENDICITIS, POSSIBLY RUPTURED Allergies and medications Allergies: Coded Allergies: NO KNOWN ALLERGIES (Unverified , 04/17/14) Home Meds Active Scripts Insulin Glargine (Basaglar Kwikpen) 100 Unit/Ml Inj, 10 UNIT SC DAILY@LUNCH for 31 Days, #1 INJ Prov:RAHUL PENA S DO 08/05/23 Insulin Aspart (Novolog) 100 Unit/Ml Inj, 10 UNIT IJ DAILY@BREAKFAST for 31 Days, #1 INJ Prov:RAHUL PENA S DO 08/05/23 Acetaminophen (Tylenol Extra Strength) 500 Mg Tab, 500 MG PO BID, #30 TAB Prov:JING US MD 03/29/23 Naproxen (Naproxen) 375 Mg Tab, 1 TAB PO BID, #60 TAB 1 Refill Prov:JING US MD 03/29/23 Lxslpnbv-Gcvknxxytl-Rbbuwdsvs- (Neosporin + Pain Relief) Relf Max Oin, 1 MAX EX TID, #120 OIN Prov:JING US MD 03/29/23 Reported Medications Hydrocodone-Acetaminophen ([place] 10-325 mg) 1 Tab Tab, 1 TAB PO TIDPRN PRN for PAIN SCALE 7 THRU 10, TAB 06/26/20 Amlodipine Besylate (Amlodipine Besylate) 5 Mg Tab, 10 MG PO BID for 30 Days, MG 06/26/20 Meloxicam (Meloxicam) 15 Mg Tab, 1 TAB PO BID, #30 TAB 2 Refills 06/26/20 Review of systems Review of Systems: HEENT:Abnormal, CVS:Abnormal, RESPIRATORY:Abnormal, GI:Abnormal, :Abnormal Examination Vital signs Vital Signs Date Time Temp Pulse Resp B/P (MAP) Pulse Ox O2 Delivery O2 Flow Rate FiO2 03/12/25 11:01 108 17 96 Room Air 03/12/25 11:01 98.7 109/66 (80) 98.7 Medications Current Medications Medications (Trade) Dose Ordered Sig/Ray Route PRN Reason Start Time Stop Time Status Last Admin Cefepime HCl 50 ml @ 12.5 mls/hr Q8HR IV 03/12/25 22:00 Laboratory Labs Test 03/12/25 10:12 Range/Units White Blood Count 22.8 #H 4.4-10.8 10^3/uL Red Blood Count 5.60 4.5-5.90 10^6/uL Hemoglobin 16.1 13.5-17.5 g/dL Hematocrit 47.1 41.0-53.0 % Mean Corpuscular Volume 84.0 80.0-100.0 fL Mean Corpuscular Hemoglobin 28.6 28.0-32.0 pg Mean Corpuscular Hemoglobin Concent 34.1 32.0-36.0 g/dL Red Cell Distribution Width 14.2 11.8-14.3 % Platelet Count 276 140-450 10^3/uL Mean Platelet Volume 8.1 6.9-10.8 fL Neutrophils (%) (Auto) 88.9 H 37.0-80.0 % Lymphocytes (%) (Auto) 5.5 L 10.0-50.0 % Monocytes (%) (Auto) 5.3 0.0-12.0 % Eosinophils (%) (Auto) 0.1 0.0-7.0 % Basophils (%) (Auto) 0.2 0.0-2.0 % Neutrophils # (Auto) 20.3 H 1.6-8.6 10 ^3/uL Lymphocytes # (Auto) 1.2 0.4-5.4 10 ^3/uL Monocytes # (Auto) 1.2 0-1.3 10 ^3/uL Eosinophils # (Auto) 0 0-0.8 10 ^3/uL Basophils # (Auto) 0.1 0-0.2 10 ^3/uL Nucleated Red Blood Cells 0.0 % Prothrombin Time 11.7 9.3-11.8 sec Prothrombin Time INR 1.12 0.9-1.15 Activated Partial Thromboplast Time 28.5 24.5-34.5 SEC Examination: GENERAL:Normal, HEENT:Normal, NECK:Normal, LUNGS:Normal, CVS:Normal, ABDOMEN:Abnormal Problem List/Assessment/Plan Problems: (1) Acute appendicitis Assessment and Plan 54 year old diabetic patient with history of right lower quadrant pain for several days. Was in the ER 48 hours ago diagnosed with appendicitis but eloped from care. Now returns with severe pain, uncontrolled diabetes and has CT scan with evidence of ruptured appendicitis, WBC elevated. Exquisitely tender in the right lower abdomen with guarding AND REBOUND TENDERNESS. LABS REVIEWED, IMAGING REVIEWED. OPERATION OPEN VS LAPAROSCOPIC WAS EXPLAINED IN DETAIL,HAD PRIOR CHOLECYSTECTOMY AND LEFT LEG OPERATION, DENIES HEART.LUNG OR LIVER DISEASE, SMOKES OCCASIONALLY, DENIES ALCOHOL AND DRUG USE. NO KNOWN ALLERGIES Plan discussed with Plan discussed with: Patient Visit Coding Surgery Date of Service if different f: Mar 12, 2025 Billing Provider: BRIAN AVILA MD Surgery Visit Codes: 08367 - INP CONSULT <110 MIN BRIAN AVILA MD Mar 12, 2025 13:07
[2025-03-12] MEDS ORDERED: DEXTROSE (50%) 50ML SYRG IV PRN (13:15)
[2025-03-12 13:30] LABS: Triglycerides 64 mg/dL (< 150)
[2025-03-12 13:33] LABS: Cholesterol 142 mg/dL (< 200); HDL Cholesterol 67 mg/dL (40-59)
[2025-03-12 13:36] LABS: Lactic Acid w/Reflex 2.5 mmol/L (0.4-2.0)
[2025-03-12] MEDS ORDERED: LIDOCAINE 2% (LOCAL ANESTH.) PF 5ml SDV ONE (15:35)
[2025-03-12] MEDS ORDERED: ONDANSETRON HCL 4 MG/2 ML VIAL ONE (15:42)
[2025-03-12] MEDS ORDERED: KETAMINE 50mg/ML 1ml syringe ONE (15:42)
[2025-03-12] MEDS ORDERED: PROPOFOL 10 MG/ML 20 ML IV ONE (15:42)
[2025-03-12] MEDS ORDERED: fentaNYL CITRATE 100 MCG/2 ML VL ONE (15:42)
[2025-03-12] MEDS ORDERED: GLYCOPYRROLATE 0.2 MG/ML 1ML VIAL ONE (15:42)
[2025-03-12] MEDS ORDERED: ROCURONIUM 10MG/ML 10ML VIAL IV ONE (15:42)
[2025-03-12] MEDS ORDERED: SUGAMMADEX 200mg/2ml Vial (100MG/ML) IV ONE (15:42)
[2025-03-12] MEDS ORDERED: KETOROLAC TROMETH 30 MG/ML 1ML VIAL ONE (15:42)
[2025-03-12] MEDS ORDERED: SODIUM CHLORIDE LOCK 10 ML ONE (15:49)
[2025-03-12] MEDS ORDERED: ceFAZolin 1GM VL ONE (15:49)
[2025-03-12] MEDS ORDERED: ESMOLOL HCL 10 ML IV ONE (16:16)
[2025-03-12] MEDS: CEFEPIME 1GM/ 50ML 50 ML IV ONE (17:11)
[2025-03-12] MEDS: SODIUM CHLORIDE 0.9% 1,000 ML IV SCH (17:11)
[2025-03-12] MEDS: VANCOMYCIN 1GM/200ML PM 200 ML IV ONE (17:11)
[2025-03-12] MEDS: NICOTINE 7MG/24HR TOPICAL PATCH TD ONE (17:12)
[2025-03-12] MEDS: CELECOXIB 100 MG CAP ONE (17:12)
[2025-03-12] MEDS: IOHEXOL 300 MG/ML 100ML BOTTLE IJ ONE (17:12)
[2025-03-12] MEDS: GABAPENTIN 300 MG CAP ONE (17:13)
[2025-03-12] MEDS: GABAPENTIN 300 MG CAP PO ONE (17:13)
[2025-03-12] MEDS: ACETAMINOPHEN IV 100 ML IV ONE (17:13)
[2025-03-12] MEDS: ACETAMINOPHEN IV 1000 MG/100ML (10MG/ML) IV ONE (17:13)
[2025-03-12] MEDS: CELECOXIB 100 MG CAP PO ONE (17:13)
--- NOTE | 2025-03-12 17:13 | DVHINCON2 ---
Date of service: Mar 12, 2025 Family History: Cerebrovascular accident (CVA) G8 FATHER Colon cancer G8 MOTHER Allergies: Coded Allergies: NO KNOWN ALLERGIES (Unverified , 04/17/14) Home Meds Active Scripts Insulin Glargine (Basaglar Kwikpen) 100 Unit/Ml Inj, 10 UNIT SC DAILY@LUNCH for 31 Days, #1 INJ Prov:RAHUL PENA S DO 08/05/23 Insulin Aspart (Novolog) 100 Unit/Ml Inj, 10 UNIT IJ DAILY@BREAKFAST for 31 Days, #1 INJ Prov:RAHUL PENA S DO 08/05/23 Acetaminophen (Tylenol Extra Strength) 500 Mg Tab, 500 MG PO BID, #30 TAB Prov:JING US MD 03/29/23 Naproxen (Naproxen) 375 Mg Tab, 1 TAB PO BID, #60 TAB 1 Refill Prov:JING US MD 03/29/23 Dwvgljmx-Qzwanlhfym-Zmuitbadh- (Neosporin + Pain Relief) Relf Max Oin, 1 MAX EX TID, #120 OIN Prov:JING US MD 03/29/23 Reported Medications Hydrocodone-Acetaminophen (Ramsay 10-325 mg) 1 Tab Tab, 1 TAB PO TIDPRN PRN for PAIN SCALE 7 THRU 10, TAB 06/26/20 Amlodipine Besylate (Amlodipine Besylate) 5 Mg Tab, 10 MG PO BID for 30 Days, MG 06/26/20 Meloxicam (Meloxicam) 15 Mg Tab, 1 TAB PO BID, #30 TAB 2 Refills 06/26/20 Current Medications Current Medications Medications (Trade) Dose Ordered Sig/Ray Route PRN Reason Start Time Stop Time Status Last Admin Cefepime HCl 50 ml @ 12.5 mls/hr Q8HR IV 03/12/25 22:00 Cancel Sodium Chloride 1,000 ml @ 100 mls/hr Q10H IV 03/12/25 12:30 Acetaminophen/ Hydrocodone Bitart (Ramsay 5/325MG Tab) 1 tab Q4HP PRN PO MODERATE PAIN (4-6 PAIN SCALE) 03/12/25 12:30 Ondansetron HCl (Zofran) 4 mg Q4HP PRN IV NAUSEA / VOMITING 03/12/25 12:30 Acetaminophen (Tylenol Tablet) 650 mg Q6HP PRN PO PAIN SCALE 1-3 OR TEMP>100.4 03/12/25 12:30 Morphine Sulfate 2 mg Q4HPRN PRN IV SEVERE PAIN (7-10 PAIN SCALE) 03/12/25 12:30 Vancomycin HCl 0 ml @ 0 mls/hr UD IV 03/12/25 12:30 Piperacillin Sod/ Tazobactam Sod 100 ml @ 25 mls/hr Q8HR IV 03/12/25 22:00 Diagnostic Test (Pha) (Accu-Chek Comfort Curve T) 1 strip Q6HR 03/12/25 18:00 Insulin Human Regular (InsuLIN R) Q6HR SC 03/12/25 18:00 Dextrose 50 ml UD PRN IV Blood Sugar LESS THAN 60 03/12/25 13:15 Nicotine (Nicoderm 7MG/ 24HR) 1 patch DAILY TD 03/13/25 10:00 Vancomycin HCl 250 ml @ 250 mls/hr Q12H IV 03/13/25 01:00 Vital Signs Vital Signs Date Time Temp Pulse Resp B/P (MAP) Pulse Ox O2 Delivery O2 Flow Rate FiO2 03/12/25 11:01 108 17 96 Room Air 03/12/25 11:01 98.7 109/66 (80) 98.7 Labs/Diagnostic Data Labs Test 03/12/25 15:16 03/12/25 10:12 Range/Units Lactic Acid Level 2.1 *H 0.4-2.0 mmol/L White Blood Count 22.8 #H 4.4-10.8 10^3/uL Red Blood Count 5.60 4.5-5.90 10^6/uL Hemoglobin 16.1 13.5-17.5 g/dL Hematocrit 47.1 41.0-53.0 % Mean Corpuscular Volume 84.0 80.0-100.0 fL Mean Corpuscular Hemoglobin 28.6 28.0-32.0 pg Mean Corpuscular Hemoglobin Concent 34.1 32.0-36.0 g/dL Red Cell Distribution Width 14.2 11.8-14.3 % Platelet Count 276 140-450 10^3/uL Mean Platelet Volume 8.1 6.9-10.8 fL Neutrophils (%) (Auto) 88.9 H 37.0-80.0 % Lymphocytes (%) (Auto) 5.5 L 10.0-50.0 % Monocytes (%) (Auto) 5.3 0.0-12.0 % Eosinophils (%) (Auto) 0.1 0.0-7.0 % Basophils (%) (Auto) 0.2 0.0-2.0 % Neutrophils # (Auto) 20.3 H 1.6-8.6 10 ^3/uL Lymphocytes # (Auto) 1.2 0.4-5.4 10 ^3/uL Monocytes # (Auto) 1.2 0-1.3 10 ^3/uL Eosinophils # (Auto) 0 0-0.8 10 ^3/uL Basophils # (Auto) 0.1 0-0.2 10 ^3/uL Nucleated Red Blood Cells 0.0 % Prothrombin Time 11.7 9.3-11.8 sec Prothrombin Time INR 1.12 0.9-1.15 Activated Partial Thromboplast Time 28.5 24.5-34.5 SEC Sodium Level 131 L 136-145 mmol/L Potassium Level 3.9 3.5-5.1 mmol/L Chloride Level 97 L 98-107 mmol/L Carbon Dioxide Level 22 20-31 mmol/L Anion Gap 12 5-15 Blood Urea Nitrogen 17 9-23 mg/dL Creatinine 1.31 H 0.700-1.30 mg/dL Glomerular Filtration Rate Calc 64 >90 mL/min BUN/Creatinine Ratio 13.0 10.0-20.0 Serum Glucose 222 H 74-106 mg/dL Hemoglobin A1c 12.6 H <5.7 % A1C Calcium Level 9.7 8.7-10.4 mg/dL Total Bilirubin 1.4 H 0.2-1.0 mg/dL Aspartate Amino Transferase (AST) 12 <34 U/L Alanine Aminotransferase (ALT) 19 7-40 U/L Alkaline Phosphatase 104 46-116 U/L Total Protein 7.4 5.7-8.2 g/dL Albumin 4.5 3.2-4.8 g/dL Triglycerides Level 64 < 150 mg/dL Cholesterol Level 142 < 200 mg/dL LDL Cholesterol 63 < 100 mg/dL HDL Cholesterol 67 H 40-59 mg/dL Assessment PATIENT PREVIOUSLY HERE AND DIAGNOSED WITH APPENDICITIS 48 HOURS AGO, LEFT WITHOUT TREATMENT,NOW PRESENTING WITH SEVERE PAIN, LEUKOCYTOSIS, LACTIC ACIDOSIS ,HYPERBILIRUBINEMIA, INDICATING SYSTEMIC SEPSIS, OPERATION RISKS AND COMPLICATIONS EXPLAINED IN DETAIL, THIS WAS DONE PRIOR TO TAKING THE PATIENT INTO THE OPERATING ROOM, IN THE PRE OP AREA. THERE WERE NO FAMILY MEMBERS PRESENT, Plan discussed with: Patient BRIAN AVILA MD Mar 12, 2025 17:13
[2025-03-12] MEDS: PIPERACILLIN-TAZOB 3.375GM 100 ML IV ONE (17:14)
[2025-03-12] MEDS: LIDOCAINE 2%HCL (LOCAL ANESTH.) INJ 10ml MDV ONE (17:14)
[2025-03-12] MEDS: LIDOCAINE W/ EPINEPHRINE 1% 20ML VIAL ONE (17:14)
[2025-03-12] MEDS: BUPIVACAINE HCL 0.25% P/F 10 ML VIAL ONE (17:14)
[2025-03-12] MEDS: POVIDONE IODINE 10 % TOPICAL OINT 30GM TOP ONE (17:15)
[2025-03-12 17:19] VITALS: PULSE 107; RESP 20; O2SAT 100
[2025-03-12] MEDS ORDERED: HYDROmorphone HCL 2 MG/ML VL/or syr IV PRN (17:30)
[2025-03-12] MEDS ORDERED: fentaNYL CITRATE 100 MCG/2 ML VL IV PRN (17:30)
[2025-03-12] MEDS ORDERED: FLUMAZENIL 0.1 MG/ML INJ 10ML MDV IV PRN (17:30)
[2025-03-12] MEDS ORDERED: NALOXONE HCL 0.4 MG/ML VIAL IV PRN (17:30)
[2025-03-12] MEDS ORDERED: hydrALAZINE HCL 20 MG/ML VL IV PRN (17:30)
[2025-03-12] MEDS: ACCU-CHEK COMFORT CURVE STRIP VI SCH (18:00)
[2025-03-12] MEDS: InsuLIN REG 1unit/0.01ml Soln (100units/ml) SC SCH (18:00)
--- NOTE | 2025-03-12 18:07 | DVHOP ---
DATE OF SURGERY: 03/12/2025 PREOPERATIVE DIAGNOSIS: Acute ruptured appendicitis. POSTOPERATIVE DIAGNOSIS: Acute ruptured appendicitis. SURGEON: Chuy Burgess MD SKI TOP TRIMMER: Nico Oneil NP ANESTHESIA: General endotracheal ANESTHESIOLOGIST: Nurse wool supplier PROCEDURE: Laparoscopy converted to open appendectomy. DESCRIPTION OF PROCEDURE: Under general endotracheal anesthesia with the patient's skin prepped and draped, a supraumbilical incision was made and Veress needle inserted by the hanging drop technique in order to establish pneumoperitoneum to 15 mmHg pressure by insufflation with carbon dioxide. With the abdomen fully distended, the needle was removed and replaced with a 5-mm trocar port, through which a 0-degree, viewing laparoscope was inserted; and under direct vision, 5 and 10-mm ports were inserted through the abdominal wall in the upper abdomen and infraumbilical skin, respectively. Laparoscopy was hampered by the patient's morbid obesity; however, no obvious unexpected pathology was encountered. The patient's right lower quadrant was obliterated by a phlegmon consisting of the omentum, loops of small bowel, and pus. The pus was aspirated and submitted for cultures and sensitivities and a protracted period of time was spent attempting to identify the appendix. The surrounding tissues were inflamed, markedly indurated, and the appendix was difficult to identify. For this reason, the laparoscopy was converted to an open operation. The infraumbilical 10-mm port site and the supraumbilical 5-mm port site were connected by an incision, which measured approximately 6 inches in length. The abdomen was then visually and manually explored. There was much indurated fat surrounding what appeared to be a completely disrupted appendix. Several fecaliths were encountered in the right lower quadrant peritoneal cavity, which were submitted with the specimen. The tissues were then divided down to the confluence of what appeared to be appendix with a disrupted base. This was controlled by a ligature and hemoclips. The Endo AUNG was utilized to sever the appendix with its surrounding fat from the cecum at its base. The tissue was removed from the field together with a fecalith and submitted for histopathologic examination. Extensive search for any residual tissues pertaining to the ruptured appendix was undertaken. No further inflamed tissues were encountered. Visual inspection revealed the terminal ileum entering the cecum and what appeared to be the base of the appendix controlled by hemoclips and ligature of the Endo AUNG dante was encountered. The right lower quadrant was then profusely irrigated with warm saline, which was aspirated, and a large Yaw drain was placed to the vicinity of the appendicectomy and into the pelvis and exteriorized through the remaining 5-mm port site in the supraumbilical skin. The drain was secured with a 2-0 nylon suture. Subsequently, following assurance of complete needle and sponge counts and assuring complete hemostasis, the fascia was approximated using #1 double-stranded PDS suture. The subcutaneous tissues were then irrigated. Irrigant was aspirated and the wound was approximated using Monocryl sutures, Dermabond glue, and Steri-Strips. The patient remained stable throughout the procedure, left the operating room following an accurate needle and sponge count. MD NEISHA Piña/ERICKA TID: [id number] RECEIPT: [id number]
[2025-03-12] MEDS: cefTRIAXone 1GM/50ML D5W 50 ML IV SCH (18:09)
[2025-03-12 20:00] VITALS: PULSE 89; RESP 18; O2SAT 94
[2025-03-12] MEDS: MORPHINE SULFATE INJ 2 MG/ml SYRG IV PRN (20:53)
[2025-03-12 21:00] VITALS: BP 144/84; PULSE 100; RESP 19; TEMP 98.1; O2SAT 92
[2025-03-12] MEDS ORDERED: CEFEPIME 1GM/ 50ML 50 ML IV SCH (22:00)
[2025-03-12] MEDS ORDERED: PIPERACILLIN-TAZOB 3.375GM 100 ML IV SCH (22:00)
[2025-03-13] MEDS ORDERED: DEXTROSE (50%) 50ML SYRG IV PRN ×2 (00:30→14:45)
[2025-03-13] MEDS ORDERED: VANCOMYCIN 1GM/250ML KIT 250 ML IV SCH (01:00)
[2025-03-13] MEDS: ACCU-CHEK COMFORT CURVE STRIP VI SCH ×2 (04:13→16:00)
[2025-03-13] MEDS: InsuLIN REG 1unit/0.01ml Soln (100units/ml) SC SCH ×2 (04:14→17:26)
[2025-03-13 05:00] VITALS: BP 117/66; PULSE 82; RESP 18; TEMP 97.8; O2SAT 90
[2025-03-13 06:41] LABS: Hematocrit 43.0 % (41.0-53.0); Hemoglobin 14.5 g/dL (13.5-17.5); Mean Corpuscular Hemoglobin 28.6 pg (28.0-32.0); Mean Corpuscular Volume 84.5 fL (80.0-100.0); Nucleated Red Blood Cells % 0.0 %
[2025-03-13 08:05] VITALS: RESP 16
[2025-03-13] MEDS: NICOTINE 7MG/24HR TOPICAL PATCH TD SCH (08:27)
[2025-03-13 09:02] VITALS: BP 114/66; PULSE 85; RESP 17; TEMP 97.4; O2SAT 93
--- NOTE | 2025-03-13 13:58 | DVHPN2 ---
Progress Note Date Seen: Mar 13, 2025 Medical Necessity Reason Pt with a Central, PICC or Fol: No Objective vital signs Vital Sign Date Time Temp Pulse Resp B/P (MAP) Pulse Ox O2 Delivery O2 Flow Rate FiO2 03/13/25 09:02 97.4 85 17 114/66 (82) 93 97.4 03/13/25 08:05 Nasal Cannula* 2 28 Total Intake and Output 03/12/25 03/12/25 03/13/25 15:00 23:00 07:00 Intake Total 100 ml 900 ml Output Total 70 ml 240 ml Balance 30 ml 660 ml medications Current Medications Medications Dose Ordered Sig/Ray Route Start Time Stop Time Status Last Admin Dose Admin Cefepime HCl 50 ml @ 12.5 mls/hr Q8HR IV 03/12/25 22:00 Cancel Sodium Chloride 1,000 ml @ 100 mls/hr Q10H IV 03/12/25 12:30 03/13/25 08:28 100 MLS/HR Acetaminophen/ Hydrocodone Bitart 1 tab Q4HP PRN PO 03/12/25 12:30 Ondansetron HCl 4 mg Q4HP PRN IV 03/12/25 12:30 Acetaminophen 650 mg Q6HP PRN PO 03/12/25 12:30 Morphine Sulfate 2 mg Q4HPRN PRN IV 03/12/25 12:30 03/12/25 20:53 2 MG Insulin Human Regular Q6HR SC 03/12/25 18:00 03/13/25 00:03 10 UNITS Nicotine 1 patch DAILY TD 03/13/25 10:00 03/13/25 08:27 1 PATCH Ceftriaxone Sodium 50 ml @ 100 mls/hr DAILY@09 IV 03/12/25 17:23 03/13/25 08:28 100 MLS/HR Metronidazole 100 ml @ 100 mls/hr Q8HR IV 03/12/25 22:00 03/13/25 13:19 100 MLS/HR Diagnostic Test (Pha) 1 strip IQ4HR 03/13/25 04:00 03/13/25 12:15 1 STRIP Insulin Human Regular IQ4HR SC 03/13/25 04:00 03/13/25 12:21 10 UNITS Dextrose 50 ml UD PRN IV 03/13/25 00:30 laboratory and microbiology Laboratory Tests 03/13/25 06:08 03/12/25 10:12 Test 03/12/25 10:12 Range/Units Serum Glucose 222 H 74-106 mg/dL Problem List/Assessment/Plan Problem List/Assessment/Plan 03/13/25 FEELS MUCH BETTRER, HAS AMBULATED, TOLERATING PO LIQUIDS. ADVANCE DIET AND AMBULATION, NEEDS iv ANTIBIOTICS ANOTHER 48 HOURS Plan discussed with: Patient BRIAN AVILA MD Mar 13, 2025 13:58
--- NOTE | 2025-03-13 15:17 | DVHPN2 ---
Subjective Patient continues to abdominal pain. Reviewed: Care Plan, H&P, Labs, Medications Changes from previous H/P or p: No Changes General: Per HPI Eyes: No Pain, No Vision change, No Conjunctivae inflammation, No Eyelid inflammation, No Other, No Redness ENT: No Ear pain, No Ear discharge, No Nose pain, No Nose discharge, No Nose congestion, No Mouth pain, No Mouth swelling, No Throat pain, No Throat swelling, No Other Cardiovascular: No Chest Pain, No Palpitations, No Orthopnea, No Paroxysmal Noc. Dyspnea, No Edema, No Lt Headedness, No Other Respiratory: No Cough, No Dry, No Shortness of breath, No SOB with excertion, No Wheezing, No Hemoptysis, No Pleuritic Pain, No Sputum, No Other Gastrointestinal: Nausea, Vomiting, Abdominal Pain; No Diarrhea, No Constipation, No Melena, No Hematochezia; Other (Abdominal pain, nausea, vomiting, unable to tolerate oral intake) Genitourinary: No Dysuria, No Frequency, No Incontinence, No Hematuria, No Retention, No Other Musculoskeletal: No other, No neck pain, No shoulder pain, No arm pain, No back pain, No hand pain, No leg pain, No foot pain Skin: No Rash, No Lesions, No Jaundice, No Bruising, No Other Objective Vitals Vital Signs Date Time Temp Pulse Resp B/P (MAP) Pulse Ox O2 Delivery O2 Flow Rate FiO2 03/13/25 09:02 97.4 85 17 114/66 (82) 93 97.4 03/13/25 08:05 Nasal Cannula* 2 28 Intake/Output Intake and Output 03/13/25 07:00 Intake Total 1000 ml Output Total 310 ml Balance 690 ml Intake Oral 0 ml IV Total 1000 ml Output Urine Total 160 ml Drainage Total 150 ml # Voids 2 General Appearance: Alert, Oriented X3, Cooperative, mild distress HEENT: Atraumatic, PERRLA Lungs: Clear to auscultation, Normal air movement Cardiovascular: Normal S1 Abdomen: Normal bowel sounds, Soft Skin: Dry, Intact Psych/Mental Status: Mental status NL, Mood NL Medications Current Medications Medications Dose Ordered Sig/Ray Route Start Time Stop Time Status Last Admin Dose Admin Cefepime HCl 50 ml @ 12.5 mls/hr Q8HR IV 03/12/25 22:00 Cancel Sodium Chloride 1,000 ml @ 100 mls/hr Q10H IV 03/12/25 12:30 03/13/25 08:28 100 MLS/HR Acetaminophen/ Hydrocodone Bitart 1 tab Q4HP PRN PO 03/12/25 12:30 Ondansetron HCl 4 mg Q4HP PRN IV 03/12/25 12:30 Acetaminophen 650 mg Q6HP PRN PO 03/12/25 12:30 Morphine Sulfate 2 mg Q4HPRN PRN IV 03/12/25 12:30 03/12/25 20:53 2 MG Nicotine 1 patch DAILY TD 03/13/25 10:00 03/13/25 08:27 1 PATCH Ceftriaxone Sodium 50 ml @ 100 mls/hr DAILY@09 IV 03/12/25 17:23 03/13/25 08:28 100 MLS/HR Metronidazole 100 ml @ 100 mls/hr Q8HR IV 03/12/25 22:00 03/13/25 13:19 100 MLS/HR Pantoprazole Sodium 40 mg DAILY@0600 PO 03/14/25 06:00 Diagnostic Test (Pha) 1 strip IQ4HR 03/13/25 16:00 Insulin Human Regular IQ4HR SC 03/13/25 16:00 Dextrose 50 ml UD PRN IV 03/13/25 14:45 Insulin Glargine 10 units HS SC 03/13/25 22:00 Laboratory Results Laboratory Tests 03/12/25 10:12 03/13/25 06:08 Microbiology Microbiology Date/Time Source Procedure Growth Status 03/12/25 16:31 Abdomen Gram Stain - Final Resulted 03/12/25 16:31 Abdomen Anaerobic Culture - Preliminary Resulted 03/12/25 16:31 Abdomen Aerobic Culture - Preliminary Resulted 03/12/25 12:48 Blood Blood Culture - Preliminary NO GROWTH AFTER 24 HOURS OF INCUBATION. Resulted Labs and/or images reviewed: Labs reviewed by me, Image(s) reviewed by me Assessment/Plan Assessment/Plan Impression: -perforated appendicitis, status post open appendectomy -sepsis secondary to perforated appendicitis -diabetes mellitus, uncontrolled -obesity -hypertension -nicotine dependence Plan: -continue IV hydration -continue antibiotic therapy with Flagyl and ceftriaxone -change sliding scale to moderate q.4 coverage. Add Lantus 10 units q.h.s. -pain management -nicotine patch -PPI -repeat labs in a.m. Total time spent with patient discussing and formulating plan of care: 35 minutes. This medical document was created using an electronic medical record system with [employer] dictation system. Although this document has been carefully reviewed, there may still be some phonetic and typographical errors. These areas are purely typographical due to imperfections of the software programs, and do not reflect any compromise in the patient's medical care. Plan discussed with: Patient, Other (RN ) My Orders Orders - THAI GABRIEL NP Procedure Category Date Status Time Pantoprazole Tablet PHA 03/14/25 In Process (Protonix Tablet) 06:00 Basic Metabolic Panel LAB 03/14/25 Verified 04:00 Complete Blood Count LAB 03/13/25 Logged 14:34 Glucose Blood PHA 03/13/25 In Process (Accu-Chek Comfort 16:00 Insulin R (Human) PHA 03/13/25 In Process (Insulin R) 16:00 Dextrose 50% Syringe PHA 03/13/25 In Process 14:45 Insulin Lantus PHA 03/13/25 In Process (Glargine) (Lantus) 22:00 Date of Service: Mar 13, 2025 Billing Provider: THAI GABRIEL NP Common Visit Codes: [id number] INP/OBS CARE(HIGH) THAI GABRIEL NP Mar 13, 2025 15:17
[2025-03-13 15:24] LABS: Hematocrit 42.7 % (41.0-53.0); Hemoglobin 14.0 g/dL (13.5-17.5); Mean Corpuscular Hemoglobin 28.3 pg (28.0-32.0); Mean Corpuscular Volume 86.1 fL (80.0-100.0); Nucleated Red Blood Cells % 0.0 %
[2025-03-13 16:41] VITALS: BP 152/89; PULSE 80; RESP 18; TEMP 98.1; O2SAT 95
[2025-03-13 20:00] VITALS: RESP 16
[2025-03-13 21:00] VITALS: BP 135/82; PULSE 87; RESP 20; TEMP 98; O2SAT 93
[2025-03-13] MEDS: INSULIN LANTUS (GLARGINE) 1 /0.01ml (100units/ml) SC SCH (23:11)
[2025-03-14] VITALS (7 sets, daily range): BP systolic 130–158; BP diastolic 79–97; PULSE 78–88; RESP 16–20; TEMP 97.8–99.1; O2SAT 94–98
[2025-03-14] MEDS: HYDROcodone-ACET 5/325MG TAB PO PRN (01:45)
[2025-03-14] MEDS: PANTOPRAZOLE 40 MG TAB PO SCH (06:05)
[2025-03-14 07:46] LABS: Anion Gap 9 (5-15); Calcium 9.1 mg/dL (8.7-10.4); Carbon Dioxide 24 mmol/L (20-31); Chloride 103 mmol/L (98-107); Potassium 3.8 mmol/L (3.5-5.1); Sodium 136 mmol/L (136-145)
[2025-03-14 07:52] LABS: BUN/Creatinine Ratio 23.8 (10.0-20.0)
[2025-03-14 07:53] LABS: Blood Urea Nitrogen 25 mg/dL (9-23); Glucose 173 mg/dL (74-106)
--- NOTE | 2025-03-14 10:44 | DVHPN2 ---
Subjective Patient continues to abdominal pain. Reviewed: Care Plan, H&P, Labs, Medications Changes from previous H/P or p: No Changes General: Per HPI Eyes: No Pain, No Vision change, No Conjunctivae inflammation, No Eyelid inflammation, No Other, No Redness ENT: No Ear pain, No Ear discharge, No Nose pain, No Nose discharge, No Nose congestion, No Mouth pain, No Mouth swelling, No Throat pain, No Throat swelling, No Other Cardiovascular: No Chest Pain, No Palpitations, No Orthopnea, No Paroxysmal Noc. Dyspnea, No Edema, No Lt Headedness, No Other Respiratory: No Cough, No Dry, No Shortness of breath, No SOB with excertion, No Wheezing, No Hemoptysis, No Pleuritic Pain, No Sputum, No Other Gastrointestinal: Nausea, Vomiting, Abdominal Pain; No Diarrhea, No Constipation, No Melena, No Hematochezia; Other (Abdominal pain, nausea, vomiting, unable to tolerate oral intake) Genitourinary: No Dysuria, No Frequency, No Incontinence, No Hematuria, No Retention, No Other Musculoskeletal: No other, No neck pain, No shoulder pain, No arm pain, No back pain, No hand pain, No leg pain, No foot pain Skin: No Rash, No Lesions, No Jaundice, No Bruising, No Other Objective Vitals Vital Signs Date Time Temp Pulse Resp B/P (MAP) Pulse Ox O2 Delivery O2 Flow Rate FiO2 03/14/25 09:00 98.2 78 20 134/84 (101) 95 98.2 03/13/25 20:00 Nasal Cannula* 2 28 Intake/Output Intake and Output 03/14/25 07:00 Intake Total 2216 ml Output Total 1602 ml Balance 614 ml Intake Oral 966 ml IV Total 1250 ml Output Urine Total 1600 ml Gastric Drainage Total 2 ml General Appearance: Alert, Oriented X3, Cooperative, mild distress HEENT: Atraumatic, PERRLA Lungs: Clear to auscultation, Normal air movement Cardiovascular: Normal S1 Abdomen: Normal bowel sounds, Soft Skin: Dry, Intact Psych/Mental Status: Mental status NL, Mood NL Medications Current Medications Medications Dose Ordered Sig/Ray Route Start Time Stop Time Status Last Admin Dose Admin Cefepime HCl 50 ml @ 12.5 mls/hr Q8HR IV 03/12/25 22:00 Cancel Sodium Chloride 1,000 ml @ 100 mls/hr Q10H IV 03/12/25 12:30 03/14/25 04:15 100 MLS/HR Acetaminophen/ Hydrocodone Bitart 1 tab Q4HP PRN PO 03/12/25 12:30 03/14/25 09:36 1 TAB Ondansetron HCl 4 mg Q4HP PRN IV 03/12/25 12:30 Acetaminophen 650 mg Q6HP PRN PO 03/12/25 12:30 Morphine Sulfate 2 mg Q4HPRN PRN IV 03/12/25 12:30 03/13/25 21:45 2 MG Nicotine 1 patch DAILY TD 03/13/25 10:00 03/14/25 09:16 1 PATCH Metronidazole 100 ml @ 100 mls/hr Q8HR IV 03/12/25 22:00 03/14/25 06:01 100 MLS/HR Pantoprazole Sodium 40 mg DAILY@0600 PO 03/14/25 06:00 03/14/25 06:05 40 MG Diagnostic Test (Pha) 1 strip IQ4HR 03/13/25 16:00 03/14/25 08:36 1 STRIP Insulin Human Regular IQ4HR SC 03/13/25 16:00 03/14/25 08:37 3 UNITS Dextrose 50 ml UD PRN IV 03/13/25 14:45 Insulin Glargine 10 units HS SC 03/13/25 22:00 03/13/25 23:11 10 UNITS Piperacillin Sod/ Tazobactam Sod 100 ml @ 25 mls/hr Q8HR IV 03/14/25 14:00 Laboratory Results Laboratory Tests 03/13/25 15:00 03/14/25 06:14 Chemistry Test 03/14/25 06:14 Calcium Level 9.1 mg/dL (8.7-10.4) Microbiology Microbiology Date/Time Source Procedure Growth Status 03/12/25 16:31 Abdomen Gram Stain - Final Resulted 03/12/25 16:31 Abdomen Anaerobic Culture - Preliminary Resulted 03/12/25 16:31 Abdomen Aerobic Culture - Preliminary Resulted 03/12/25 12:48 Blood Blood Culture - Preliminary NO GROWTH AFTER 24 HOURS OF INCUBATION. Resulted Labs and/or images reviewed: Labs reviewed by me, Image(s) reviewed by me Assessment/Plan Assessment/Plan Impression: -perforated appendicitis, status post open appendectomy -sepsis secondary to perforated appendicitis -diabetes mellitus, uncontrolled -obesity -hypertension -nicotine dependence Plan: Events: Patient continues to have increase white blood cell count. Afebrile. Blood sugars improved. -advance diet as tolerated per surgery -continue IV hydration -continue Flagyl, stop Rocephin and add Zosyn -patient continue q.4 coverage with regular insulin sliding scale and continue insulin Lantus q.h.s. -pain management -nicotine patch -PPI -repeat labs in a.m. Total time spent with patient discussing and formulating plan of care: 35 minutes. This medical document was created using an electronic medical record system with [employer] dictation system. Although this document has been carefully reviewed, there may still be some phonetic and typographical errors. These areas are purely typographical due to imperfections of the software programs, and do not reflect any compromise in the patient's medical care. Plan discussed with: Patient, Other (RN) My Orders Orders - THAI GARBIEL NP Procedure Category Date Status Time Pantoprazole Tablet PHA 03/14/25 In Process (Protonix Tablet) 06:00 Glucose Blood PHA 03/13/25 In Process (Accu-Chek Comfort 16:00 Insulin R (Human) PHA 03/13/25 In Process (Insulin R) 16:00 Dextrose 50% Syringe PHA 03/13/25 In Process 14:45 Insulin Lantus PHA 03/13/25 In Process (Glargine) (Lantus) 22:00 Piperacillin-Tazob PHA 03/14/25 In Process 3.375gm (Zosyn 3.375g 14:00 Complete Blood Count LAB 03/15/25 Verified 04:00 Basic Metabolic Panel LAB 03/15/25 Verified 04:00 Date of Service: Mar 14, 2025 Billing Provider: THAI GABRIEL NP Common Visit Codes: [id number] INP/OBS CARE(HIGH) THAI GABRIEL NP Mar 14, 2025 10:44
--- NOTE | 2025-03-14 14:25 | DVHPN2 ---
Progress Note Date Seen: Mar 14, 2025 Medical Necessity Reason Pt with a Central, PICC or Fol: No Objective vital signs Vital Sign Date Time Temp Pulse Resp B/P (MAP) Pulse Ox O2 Delivery O2 Flow Rate FiO2 03/14/25 09:00 98.2 78 20 134/84 (101) 95 98.2 03/13/25 20:00 Nasal Cannula* 2 28 Total Intake and Output 03/13/25 03/13/25 03/14/25 15:00 23:00 07:00 Intake Total 150 ml 1700 ml 366 ml Output Total 1000 ml 602 ml Balance 150 ml 700 ml -236 ml medications Current Medications Medications Dose Ordered Sig/Ray Route Start Time Stop Time Status Last Admin Dose Admin Cefepime HCl 50 ml @ 12.5 mls/hr Q8HR IV 03/12/25 22:00 Cancel Sodium Chloride 1,000 ml @ 100 mls/hr Q10H IV 03/12/25 12:30 03/14/25 04:15 100 MLS/HR Acetaminophen/ Hydrocodone Bitart 1 tab Q4HP PRN PO 03/12/25 12:30 03/14/25 09:36 1 TAB Ondansetron HCl 4 mg Q4HP PRN IV 03/12/25 12:30 Acetaminophen 650 mg Q6HP PRN PO 03/12/25 12:30 Morphine Sulfate 2 mg Q4HPRN PRN IV 03/12/25 12:30 03/13/25 21:45 2 MG Nicotine 1 patch DAILY TD 03/13/25 10:00 03/14/25 09:16 1 PATCH Metronidazole 100 ml @ 100 mls/hr Q8HR IV 03/12/25 22:00 03/14/25 12:56 100 MLS/HR Pantoprazole Sodium 40 mg DAILY@0600 PO 03/14/25 06:00 03/14/25 06:05 40 MG Diagnostic Test (Pha) 1 strip IQ4HR 03/13/25 16:00 03/14/25 12:56 1 STRIP Insulin Human Regular IQ4HR SC 03/13/25 16:00 03/14/25 12:57 6 UNITS Dextrose 50 ml UD PRN IV 03/13/25 14:45 Insulin Glargine 10 units HS SC 03/13/25 22:00 03/13/25 23:11 10 UNITS Piperacillin Sod/ Tazobactam Sod 100 ml @ 25 mls/hr Q8HR IV 03/14/25 14:00 laboratory and microbiology Laboratory Tests 03/14/25 06:14 03/13/25 15:00 Test 03/14/25 06:14 Range/Units Serum Glucose 173 H 74-106 mg/dL Problem List/Assessment/Plan Problem List/Assessment/Plan 03/13/25 FEELS MUCH BETTRER, HAS AMBULATED, TOLERATING PO LIQUIDS. ADVANCE DIET AND AMBULATION, NEEDS iv ANTIBIOTICS ANOTHER 48 HOURS 03/14/25 afebrile, normotensive, persistent leukocytosis, abdomen appropriately tender, wound clean and well approximated, drainage serosanguineous. If leukocytosis does not improve over next [address] will get a CT scan of abdomen and pelvis Plan discussed with: Patient BRIAN AVILA MD Mar 14, 2025 14:25
--- NOTE | 2025-03-14 14:42 | MEDREC ---
[facility] ASP Intervention Section I [facility] ASP Intervention: Duplication of therapy (PLEASE CONSIDER D/C FLAGYL SINCE BOTH ZOSYN AND FLAGYL COVER FOR ANAEROBE ORGANISMS (DUPLICATE) ) JUDITH MAR PHARMACIST Mar 14, 2025 14:42
[2025-03-14] MEDS: PIPERACILLIN-TAZOB 3.375GM 100 ML IV SCH (14:52)
[2025-03-15 01:00] VITALS: BP 155/86; PULSE 80; RESP 18; TEMP 98.9; O2SAT 94
[2025-03-15 05:00] VITALS: BP 140/86; PULSE 77; RESP 77; TEMP 98; O2SAT 18
[2025-03-15 08:29] LABS: Hematocrit 40.6 % (41.0-53.0); Hemoglobin 13.7 g/dL (13.5-17.5); Mean Corpuscular Hemoglobin 28.2 pg (28.0-32.0); Mean Corpuscular Volume 83.5 fL (80.0-100.0); Nucleated Red Blood Cells % 0.0 %
[2025-03-15 08:31] VITALS: BP 134/76; PULSE 83; RESP 18; TEMP 98; O2SAT 91
[2025-03-15 08:36] LABS: Chloride 103 mmol/L (98-107); Potassium 3.5 mmol/L (3.5-5.1)
[2025-03-15 08:37] LABS: Anion Gap 8 (5-15); Carbon Dioxide 25 mmol/L (20-31)
[2025-03-15 08:38] LABS: Calcium 8.9 mg/dL (8.7-10.4)
[2025-03-15 08:40] LABS: Sodium 136 mmol/L (136-145)
[2025-03-15 08:43] LABS: BUN/Creatinine Ratio 16.8 (10.0-20.0); Blood Urea Nitrogen 16 mg/dL (9-23)
[2025-03-15 08:57] LABS: Glucose 143 mg/dL (74-106)
[2025-03-15] MEDS: SODIUM CHLORIDE 0.9% 1,000 ML IV SCH (11:00)
[2025-03-15 13:00] VITALS: BP 128/78; PULSE 75; RESP 18; TEMP 97.7; O2SAT 96
[2025-03-15 16:33] VITALS: BP 157/100; PULSE 76; RESP 16; TEMP 97.6; O2SAT 95
[2025-03-15] MEDS: PIPERACILLIN-TAZOB 3.375GM 100 ML IV SCH (20:47)
[2025-03-15 21:00] VITALS: BP 132/32; PULSE 67; RESP 17; TEMP 98; O2SAT 93
[2025-03-15] MEDS: DOCUSATE SOD 100 MG CAP PO SCH (21:46)
[2025-03-16 05:00] VITALS: BP 136/90; PULSE 80; RESP 18; TEMP 97.8; O2SAT 95
[2025-03-16 07:12] LABS: Hematocrit 42.0 % (41.0-53.0); Hemoglobin 14.3 g/dL (13.5-17.5); Mean Corpuscular Hemoglobin 28.3 pg (28.0-32.0); Mean Corpuscular Volume 83.0 fL (80.0-100.0); Nucleated Red Blood Cells % 0.0 %
[2025-03-16] MEDS ORDERED: DOCU-94 PO (09:17)
[2025-03-16] MEDS ORDERED: AUG875T PO (09:17)
[2025-03-16] MEDS ORDERED: HYDR-4902 PO (09:17)
[2025-03-16 09:23] VITALS: BP 143/85; PULSE 75; RESP 17; TEMP 97.6; O2SAT 94
[2025-03-16] MEDS: LACTULOSE 20Gm/30ML SOLN PO SCH (09:25)
--- NOTE | 2025-03-16 09:29 | DVHDS2 ---
Discharge Summary Date of Admission Mar 12, 2025 at 12:17 Date of Discharge: Mar 16, 2025 Admitting Diagnosis Acute appendicitis Labs/Diagnostic Data: Laboratory Results Test 03/16/25 07:54 03/16/25 06:00 03/15/25 07:17 03/12/25 15:16 POC Glucose 172 mg/dl (70-106) White Blood Count 11.3 10^3/uL (4.4-10.8) Red Blood Count 5.06 10^6/uL (4.5-5.90) Hemoglobin 14.3 g/dL (13.5-17.5) Hematocrit 42.0 % (41.0-53.0) Mean Corpuscular Volume 83.0 fL (80.0-100.0) Mean Corpuscular Hemoglobin 28.3 pg (28.0-32.0) Mean Corpuscular Hemoglobin Concent 34.0 g/dL (32.0-36.0) Red Cell Distribution Width 14.1 % (11.8-14.3) Platelet Count 363 10^3/uL (140-450) Mean Platelet Volume 7.8 fL (6.9-10.8) Neutrophils (%) (Auto) 74.9 % (37.0-80.0) Lymphocytes (%) (Auto) 14.7 % (10.0-50.0) Monocytes (%) (Auto) 7.2 % (0.0-12.0) Eosinophils (%) (Auto) 2.9 % (0.0-7.0) Basophils (%) (Auto) 0.3 % (0.0-2.0) Neutrophils # (Auto) 8.5 10 ^3/uL (1.6-8.6) Lymphocytes # (Auto) 1.7 10 ^3/uL (0.4-5.4) Monocytes # (Auto) 0.8 10 ^3/uL (0-1.3) Eosinophils # (Auto) 0.3 10 ^3/uL (0-0.8) Basophils # (Auto) 0 10 ^3/uL (0-0.2) Nucleated Red Blood Cells 0.0 % Sodium Level 136 mmol/L (136-145) Potassium Level 3.5 mmol/L (3.5-5.1) Chloride Level 103 mmol/L (98-107) Carbon Dioxide Level 25 mmol/L (20-31) Anion Gap 8 (5-15) Blood Urea Nitrogen 16 mg/dL (9-23) Creatinine 0.95 mg/dL (0.700-1.30) Glomerular Filtration Rate Calc 94 mL/min (>90) BUN/Creatinine Ratio 16.8 (10.0-20.0) Serum Glucose 143 mg/dL (74-106) Calcium Level 8.9 mg/dL (8.7-10.4) Lactic Acid Level 2.1 mmol/L (0.4-2.0) Test 03/12/25 10:12 Prothrombin Time 11.7 sec (9.3-11.8) Prothrombin Time INR 1.12 (0.9-1.15) Activated Partial Thromboplast Time 28.5 SEC (24.5-34.5) Hemoglobin A1c 12.6 % A1C (<5.7) Total Bilirubin 1.4 mg/dL (0.2-1.0) Aspartate Amino Transferase (AST) 12 U/L (<34) Alanine Aminotransferase (ALT) 19 U/L (7-40) Alkaline Phosphatase 104 U/L (46-116) Total Protein 7.4 g/dL (5.7-8.2) Albumin 4.5 g/dL (3.2-4.8) Triglycerides Level 64 mg/dL (< 150) Cholesterol Level 142 mg/dL (< 200) LDL Cholesterol 63 mg/dL (< 100) HDL Cholesterol 67 mg/dL (40-59) Other Laboratory Tests 03/16/25 06:00 03/15/25 07:17 Brief Hx & Hospital Course: History of Present Illness A 54-year-old male with past medical history of type 2 diabetes mellitus, hyperlipidemia, hypertension, and tobacco use approximately one pack per week, presents to the emergency department with complaint of worsening abdominal pain for the past three days. The patient reports associated nausea and vomiting and states he is now unable to tolerate oral intake without vomiting. The patient was seen in the ED two days ago for similar complaints, and a CT scan of the abdomen and pelvis at that time revealed findings consistent with early acute appendicitis without perforation. However, the patient eloped from the ED prior to receiving treatment or completing the evaluation. He now returns with progressive worsening symptoms. Repeat CT abdomen/pelvis today demonstrate persistent acute appendicitis with new periappendiceal mesenteric edema concerning for microperforation. Course of hospitalization: Patient was taken to the operating room, for which she underwent initially laparoscopic which was converted to open appendectomy. Patient had findings of ruptured appendicitis. Postoperatively, the patient had challenges with controlling blood sugars as well as the patient having persistent leukocytosis. Patient's antibiotic therapy was switched to Zosyn and Flagyl. Patient's white blood cell count improved. Patient is tolerating oral intake without any nausea and vomiting. Patient's abdominal wounds are benign. Serous fluid noted from LOVELY drain which was documented as 10 mL over the past 12 hours. Patient has also reported a bowel movement yesterday afternoon. Patient we will be discharged home once cleared by the surgeon Dr. Burgess. Patient will follow up with his clinic in one week. Patient was instructed to continue all home medications, and we will be provided additional antibiotic therapy in the form of Augmentin 875 mg p.o. twice a day for seven days, as well as being provided pain medication, [place] 5/325 q.8 hours as needed, as well as Colace 100 mg p.o. twice a day. Patient will follow up with his PCP in 1-2 weeks and/or the discharge Clinic in one week. Patient was agreeable with discharge plan. All questions answered. Physical examination General: Alert and Oriented x3. No acute distress. Well-nourished. Eyes: EOMI. Anicteric. HENT: Moist mucous membranes. Lungs: Clear to auscultation bilaterally. No accessory muscle use. Cardiovascular: Regular rate and rhythm. No murmur. No JVD. Abdomen: Soft, non-tender and non-distended. No palpable masses. Abdomen benign. LOVELY drain with minimal serous fluid Extremities: No edema. Non-tender. Skin: No rashes or lesions. Warm. Neurologic: No focal neurological deficits. CN II-XII grossly intact, but not individually tested. Psychiatric: Cooperative. Appropriate mood and affect. Total time spent with patient discussing and formulating plan of care: 35 minutes. This medical document was created using an electronic medical record system with [employer] system. Although this document has been carefully reviewed, there may still be some phonetic and typographical errors. These areas are purely typographical due to imperfections of the software programs, and do not reflect any compromise in the patient's medical care. Consults/Reason for consult General surgery: Ruptured appendicitis Operations or Procedures Open appendectomy Condition at Discharge: Guarded Final Diagnosis/Problems List Sepsis secondary to ruptured appendicitis Secondary diagnosis: -perforated appendicitis, status post open appendectomy -sepsis secondary to perforated appendicitis -diabetes mellitus, uncontrolled -obesity -hypertension -nicotine dependence Discharge Disposition: Home Discharge Instruct/Medications Diet: Consistent carbohydrate Activity: Light activity Activity comment: Not lift anything greater than 5 lb until cleared by surgeon. Follow Up/Referral: Follow up with Dr. Burgess in one week Follow up with the PCP in 1-2 weeks Medications: Augmentin 875 mg p.o. b.i.d. x7 days Colace 100 mg p.o. b.i.d. [place] 5/325 q.8 hours as needed for nyucwsxy-vp-fknesj pain Continue all previous home medications Scheduled Acetaminophen (Tylenol Extra Strength), 500 MG PO BID Amlodipine Besylate (Amlodipine Besylate), 10 MG PO BID, (Reported) Amoxicillin & Pot Clavulanate (Augmentin Tablet), 875 MG PO BID Docusate Sodium (Colace), 1 CAP PO BID Insulin Aspart (Novolog), 10 UNIT IJ DAILY@BREAKFAST Insulin Glargine (Basaglar Kwikpen), 10 UNIT SC DAILY@LUNCH Meloxicam (Meloxicam), 1 TAB PO BID, (Reported) Naproxen (Naproxen), 1 TAB PO BID Dzefozpy-Pbaaaznsge-Qrlqerudv- (Neosporin + Pain Relief), 1 MAX EX TID Scheduled PRN Hydrocodone-Acetaminophen ([place] 10-325 mg), 1 TAB PO TIDPRN PRN for PAIN SCALE 7 THRU 10, (Reported) Hydrocodone-Acetaminophen (Hydrocodone Bitartrate/AC 5-325 mg), 1 TAB PO Q8HP PRN 36 Discharge Statement: "Patient was advised to return to the ER or call 911 if any headaches, dizziness, shortness of breath, chest pain, abdominal pain, bleeding, fevers, or worsening of medical condition. Patient was counseled about treatment plan, medications, possible side effects, patientverbalized understanding. All questions were answered to the best of my ability. This discharge took greater then 30 minutes in planning, reviewing documentation, counseling the patient, and discussing with other team members." ASSESSMENT ASSESSMENT Assessment Sepsis secondary to ruptured appendicitis Date of Service: Mar 16, 2025 Billing Provider: THAI GABRIEL NP Common Visit Codes: 49228-GZP/OBS DISCH DAY >30min THAI GABRIEL NP Mar 16, 2025 09:29
--- NOTE | 2025-03-16 09:35 | DVHPN2 ---
Subjective Patient continues to abdominal pain. Reviewed: Care Plan, H&P, Labs, Medications Changes from previous H/P or p: No Changes General: Per HPI Eyes: No Pain, No Vision change, No Conjunctivae inflammation, No Eyelid inflammation, No Other, No Redness ENT: No Ear pain, No Ear discharge, No Nose pain, No Nose discharge, No Nose congestion, No Mouth pain, No Mouth swelling, No Throat pain, No Throat swelling, No Other Cardiovascular: No Chest Pain, No Palpitations, No Orthopnea, No Paroxysmal Noc. Dyspnea, No Edema, No Lt Headedness, No Other Respiratory: No Cough, No Dry, No Shortness of breath, No SOB with excertion, No Wheezing, No Hemoptysis, No Pleuritic Pain, No Sputum, No Other Gastrointestinal: Nausea, Vomiting, Abdominal Pain; No Diarrhea, No Constipation, No Melena, No Hematochezia; Other (Abdominal pain, nausea, vomiting, unable to tolerate oral intake) Genitourinary: No Dysuria, No Frequency, No Incontinence, No Hematuria, No Retention, No Other Musculoskeletal: No other, No neck pain, No shoulder pain, No arm pain, No back pain, No hand pain, No leg pain, No foot pain Skin: No Rash, No Lesions, No Jaundice, No Bruising, No Other Objective Vitals Vital Signs Date Time Temp Pulse Resp B/P (MAP) Pulse Ox O2 Delivery O2 Flow Rate FiO2 03/16/25 09:23 97.6 75 17 143/85 (104) 94 97.6 03/15/25 20:00 Nasal Cannula* 2 28 Intake/Output Intake and Output 03/16/25 07:00 Intake Total 1100 ml Balance 1100 ml Intake Oral 900 ml IV Total 200 ml # Voids 5 General Appearance: Alert, Oriented X3, Cooperative, mild distress HEENT: Atraumatic, PERRLA Lungs: Clear to auscultation, Normal air movement Cardiovascular: Normal S1 Abdomen: Normal bowel sounds, Soft Skin: Dry, Intact Psych/Mental Status: Mental status NL, Mood NL Medications Current Medications Medications Dose Ordered Sig/Ray Route Start Time Stop Time Status Last Admin Dose Admin Cefepime HCl 50 ml @ 12.5 mls/hr Q8HR IV 03/12/25 22:00 Cancel Acetaminophen/ Hydrocodone Bitart 1 tab Q4HP PRN PO 03/12/25 12:30 03/16/25 02:51 1 TAB Ondansetron HCl 4 mg Q4HP PRN IV 03/12/25 12:30 Acetaminophen 650 mg Q6HP PRN PO 03/12/25 12:30 Morphine Sulfate 2 mg Q4HPRN PRN IV 03/12/25 12:30 03/15/25 13:42 2 MG Nicotine 1 patch DAILY TD 03/13/25 10:00 03/16/25 09:26 1 PATCH Pantoprazole Sodium 40 mg DAILY@0600 PO 03/14/25 06:00 03/16/25 06:20 40 MG Diagnostic Test (Pha) 1 strip IQ4HR 03/13/25 16:00 03/16/25 09:26 1 STRIP Insulin Human Regular IQ4HR SC 03/13/25 16:00 03/16/25 04:00 3 UNITS Dextrose 50 ml UD PRN IV 03/13/25 14:45 Insulin Glargine 10 units HS SC 03/13/25 22:00 03/16/25 00:30 10 UNITS Sodium Chloride 1,000 ml @ 50 mls/hr Q20H IV 03/15/25 11:00 03/15/25 11:00 50 MLS/HR Docusate Sodium 100 mg BID PO 03/15/25 22:00 03/16/25 09:25 100 MG Lactulose 30 ml DAILY PO 03/16/25 10:00 03/16/25 09:25 30 ML Piperacillin Sod/ Tazobactam Sod 100 ml @ 25 mls/hr Q6H IV 03/15/25 20:00 03/16/25 09:26 25 MLS/HR Laboratory Results Laboratory Tests 03/15/25 07:17 03/16/25 06:00 Microbiology Microbiology Date/Time Source Procedure Growth Status 03/12/25 16:31 Abdomen Gram Stain - Final Resulted 03/12/25 16:31 Abdomen Anaerobic Culture - Preliminary Resulted 03/12/25 16:31 Aerobic Culture - Final Escherichia coli Resulted 03/12/25 12:48 Blood Blood Culture - Preliminary NO GROWTH AFTER 72 HOURS OF INCUBATION. Resulted Labs and/or images reviewed: Labs reviewed by me, Image(s) reviewed by me Assessment/Plan Assessment/Plan Impression: -perforated appendicitis, status post open appendectomy -sepsis secondary to perforated appendicitis -diabetes mellitus, uncontrolled -obesity -hypertension -nicotine dependence Plan: Events: Blood sugars improved. Bowel regimen started given no BM -advance diet as tolerated per surgery -continue IV hydration -Continue zosyn -patient continue q.4 coverage with regular insulin sliding scale and continue insulin Lantus q.h.s. -pain management -nicotine patch -PPI -repeat labs in a.m. Total time spent with patient discussing and formulating plan of care: 35 minutes. This medical document was created using an electronic medical record system with [employer] dictation system. Although this document has been carefully reviewed, there may still be some phonetic and typographical errors. These areas are purely typographical due to imperfections of the software programs, and do not reflect any compromise in the patient's medical care. Plan discussed with: Patient, Other (RN) My Orders Orders - THAI GABRIEL NP Procedure Category Date Status Time Sodium Chloride 0.9% PHA 03/15/25 In Process 11:00 Docusate Sodium PHA 03/15/25 In Process Capsule (Colace 22:00 Lactulose Oral PHA 03/16/25 In Process 10:00 Piperacillin-Tazob PHA 03/15/25 In Process 3.375gm (Zosyn 3.375g 20:00 Discharge DISCHARGE 03/16/25 Transmitted 09:19 Date of Service: Mar 15, 2025 Billing Provider: THAI GABRIEL NP Common Visit Codes: [id number] INP/OBS CARE(HIGH) THAI GABRIEL NP Mar 16, 2025 09:35
--- NOTE | 2025-03-16 12:31 | DVHPN2 ---
Subjective Date Seen: Mar 16, 2025 Post op day Post op day: 3 Patient reports: No new complaints Nursing reports: No new complaints General: Normal HNT: Normal Cardiovascular: Normal Respiratory: Normal Gastrointestinal: Normal Genitourinary: Normal Musculoskeletal: Normal Neurological: Normal Objective Vitals Vital Sign Date Time Temp Pulse Resp B/P (MAP) Pulse Ox O2 Delivery O2 Flow Rate FiO2 03/16/25 09:23 97.6 75 17 143/85 (104) 94 97.6 03/15/25 20:00 Nasal Cannula* 2 28 Total Intake and Output 03/15/25 03/15/25 03/16/25 15:00 23:00 07:00 Intake Total 750 ml 350 ml Balance 750 ml 350 ml Medications Current Medications Medications Dose Ordered Sig/Ray Route Start Time Stop Time Status Last Admin Dose Admin Cefepime HCl 50 ml @ 12.5 mls/hr Q8HR IV 03/12/25 22:00 Cancel General: Normal, Well developed Head/Eyes: Normal ENT: Normal Neck: Normal Lungs: Normal Cardiovascular: Normal, Regular rate and rhythm Abdominal: Normal, Soft Skin: Normal, Normal inspection Labs and Microbiology Laboratory Tests 03/16/25 06:00 03/15/25 07:17 Test 03/15/25 07:17 Range/Units Serum Glucose 143 H 74-106 mg/dL Ass/Plan Labs and/or images reviewed: Labs reviewed by me, Image(s) reviewed by me Problem List 03/13/25 FEELS MUCH BETTRER, HAS AMBULATED, TOLERATING PO LIQUIDS. ADVANCE DIET AND AMBULATION, NEEDS iv ANTIBIOTICS ANOTHER 48 HOURS 03/14/25 afebrile, normotensive, persistent leukocytosis, abdomen appropriately tender, wound clean and well approximated, drainage serosanguineous. If leukocytosis does not improve over next 48 [address] will get a CT scan of abdomen and pelvis Assessment/Plan 03/16/2025 @09:50 Surgery: Appendectomy patient seen earlier this morning Complaints: - No abdominal complaint of pain. - No abdominal tenderness. Review of Systems: - The patient is passing gas and has had bowel movements. Physical Exam: - The patient is ambulating through the hallway. - Abdomen is soft, non-distended, and non-tender. - LOVELY drain has minimal serous fluid output. Plan: - The patient is cleared for discharge per the surgical team once the white blood count is normal. - Discharge with a course of antibiotics. Prognosis: Good Plan discussed with patient, nurse, Dr. Burgess Visit Coding Surgery Date of Service if different f: Mar 16, 2025 Billing Provider: BRIAN BURGESS MD Surgery Visit Codes: [id number] INP/OBS CARE(HIGH) STANFORD ELIZABETH NP Mar 16, 2025 12:31
== END 2025-03-16 11:20 | disposition left against medical advice (07) | DRG 853 ==
LOC: EDUNIT# 09:42 → ER 09:42 → EDBD 09:42 → OVERFLOW 12:17 → CENTRAL 18:40
PROVIDERS: ADMIT Nurse Practitioner Acute Care; ATTEND Nurse Practitioner Acute Care
PROC: 0WJG4ZZ Inspection of Peritoneal Cavity, Percutaneous Endoscopic Approach (ICD-10-PCS; 2025-03-12)
PROC: 0DTJ0ZZ Resection of Appendix, Open Approach (ICD-10-PCS; principal; 2025-03-12 15:46)
DX: A41.9 Sepsis, unspecified organism (principal); K35.32 Acute appendicitis with perforation, localized peritonitis, and gangrene, without abscess; E87.20 Acidosis, unspecified; I10 Essential (primary) hypertension; E66.01 Morbid (severe) obesity due to excess calories; K76.9 Liver disease, unspecified; E11.9 Type 2 diabetes mellitus without complications; K56.41 Fecal impaction; F17.210 Nicotine dependence, cigarettes, uncomplicated; E78.5 Hyperlipidemia, unspecified; Z53.29 Procedure and treatment not carried out because of patient's decision for other reasons; Z82.3 Family history of stroke; Z80.0 Family history of malignant neoplasm of digestive organs; Z71.6 Tobacco abuse counseling; Z53.31 Laparoscopic surgical procedure converted to open procedure; Z68.29 Body mass index [BMI] 29.0-29.9, adult; Z90.49 Acquired absence of other specified parts of digestive tract
CPT/HCPCS: 36415; 71045; 74177; 80048; 80053; 80061; 82962; 83036; 83605; 85025; 85610; 85730; 86850; 86900; 86901; 87040; 87070; 87075; 87076; 87077; 87186; 87205; 96365; 99291; 99292; G0378; J0131; J0171; J0690; J1100; J1815; J1885; J2003; J2405; J2543; J2704; J3490

== ENCOUNTER 2025-03-19 12:18 | Emergency (ER) | payer OTHER ==
[~2025-03-19 12:18] MED LIST changes: +AUG875T PO; +DOCU-94 PO; +HYDR-4902 PO
== END 2025-03-19 12:33 | disposition left against medical advice (07) ==
LOC: ER 12:21
DX: Z48.00 Encounter for change or removal of nonsurgical wound dressing (principal); Z53.21 Procedure and treatment not carried out due to patient leaving prior to being seen by health care provider

== ENCOUNTER 2025-03-19 15:14 | Emergency (ER) | payer OTHER ==
[~2025-03-19] VITALS: Ht 177.8 cm; Wt 92.0 kg
[2025-03-19 15:30] VITALS: BP 130/81; PULSE 101; RESP 18; TEMP 98.2; O2SAT 96
--- NOTE | 2025-03-19 15:38 | ED.PDOC ---
History of Present Illness HPI Comments This patient is a morbidly obese 54-year-old male who presents to the ER no prior history associated with a chief complaint of a wound check. Patient reports that he had an appendectomy on the 13 of March at [facility] and has a manual wound VAC. wound VAC dressing is soiled and dirty, but patient does state he has been able to have successful bowel movements starting yesterday. Patient wants the wound to be checked and be removed. Denies chills, fever, N/V/D, SOB, CP. No other associated symptoms, modifiers, recent injuries or sick contacts present at this time. Vital signs were stable on arrival. Time Seen by MD: 15:30 Primary Care Provider: JESSENIA Reviewed Notes: Nurses Notes, Medications, Allergies Allergies: Coded Allergies: NO KNOWN ALLERGIES (Unverified , 04/17/14) Home Meds Active Scripts Docusate Sodium (Colace) 100 Mg Cap, 1 CAP PO BID, #30 CAP Prov:THAI GABRIEL GAS EXAMINER 03/16/25 Hydrocodone-Acetaminophen (Hydrocodone Bitartrate/AC 5-325 mg) 1 Tab Tab, 1 TAB PO Q8HP PRN for 5 Days, #15 TAB Prov:THAI GABRIEL G[employer] EXAMINER 03/16/25 Amoxicillin & Pot Clavulanate (AUGMENTIN TABLET) 875 Mg Tb, 875 MG PO BID for 7 Days, #14 TAB Prov:THAI GABRIEL GAS EXAMINER 03/16/25 Insulin Glargine (Basaglar Kwikpen) 100 Unit/Ml Inj, 10 UNIT SC DAILY@LUNCH for 31 Days, #1 INJ Prov:RAHUL PENA S DO 08/05/23 Insulin Aspart (Novolog) 100 Unit/Ml Inj, 10 UNIT IJ DAILY@BREAKFAST for 31 Days, #1 INJ Prov:RAHUL PENA S DO 08/05/23 Acetaminophen (Tylenol Extra Strength) 500 Mg Tab, 500 MG PO BID, #30 TAB Prov:JING US MD 03/29/23 Naproxen (Naproxen) 375 Mg Tab, 1 TAB PO BID, #60 TAB 1 Refill Prov:JING US MD 03/29/23 Asvckuhb-Qgijbqojhe-Yhsljassj- (Neosporin + Pain Relief) Relf Max Oin, 1 MAX EX TID, #120 OIN Prov:ABEBAJING Croft MD 03/29/23 Reported Medications Hydrocodone-Acetaminophen (Hall 10-325 mg) 1 Tab Tab, 1 TAB PO TIDPRN PRN for PAIN SCALE 7 THRU 10, TAB 06/26/20 Amlodipine Besylate (Amlodipine Besylate) 5 Mg Tab, 10 MG PO BID for 30 Days, MG 06/26/20 Meloxicam (Meloxicam) 15 Mg Tab, 1 TAB PO BID, #30 TAB 2 Refills 06/26/20 Information Source: Patient Mode of Arrival: Ambulatory Severity: Moderate Timing: Days Duration: Since onset, Days Prehospital treatment: None Past Medical History PAST MEDICAL HISTORY: Denies Surgical History: Appendectomy Family History Family History: Reviewed,noncontributory to illness, Unknown, Family hx of HTN Social History Smoker: Non-Smoker Alcohol: Denies ETOH Use Drugs: Denies Drug Use Lives In: Home Constitutional: denies: chills, diaphoresis, fatigue, fever, malaise, sweats, weakness, others EENTM: denies: blurred vision, double vision, ear bleeding, ear discharge, ear drainage, ear pain, ear ringing, eye pain, eye redness, hearing loss, mouth pain, mouth swelling, nasal discharge, nose bleeding, nose congestion, nose pain, photophobia, tearing, throat pain, throat swelling, voice changes, others Respiratory: denies: cough, hemoptysis, orthopnea, SOB at rest, shortness of breath, SOB with excertion, stridor, wheezing, others Cardiovascular: denies: chest pain, dizzy spells, diaphoresis, Dyspnea on exertion, edema, irregular heart beat, left arm pain, lightheadedness, palpitations, PND, syncope, others Gastrointestinal: denies: abdomen distended, abdominal pain, blood streaked bowels, constipated, diarrhea, dysphagia, difficulty swallowing, hematemesis, melena, nausea, poor appetite, poor fluid intake, rectal bleeding, rectal pain, vomiting, others Genitourinary: reports: others (Patient has a wound VAC installed in his superior abdomen); denies: burning, dysuria, flank pain, frequency, hematuria, incontinence, penile discharge, penile sore, pain, testicle pain, testicle swelling, urgency Neurological: denies: dizziness, fainting, headache, left sided numbness, left sided weakness, numbness, paresthesia, pre-existing deficit, right sided numbness, right sided weakness, seizure, speech problems, tingling, tremors, weakness, others Musculoskeletal: denies: back pain, gout, joint pain, joint swelling, muscle pain, muscle stiffness, neck pain, others Integumetry: denies: bruises, change in color, change in hair/nails, dryness, laceration, lesions, lumps, rash, wounds, others Allergic/Immunocompromised: denies: Difficulty Healing, Frequent Infections, Hives, Itching, others Hematologic/Lymphatic: denies: anemia, blood clots, easy bleeding, easy br uising, swollen glands, others Endocrine: denies: excessive hunger, excessive sweating, excessive thirst, excessive urination, flushing, intolerance to cold, intolerance to heat, unexplained weight gain, unexplained weight loss, others Psychiatric: denies: anxiety, bipolar disorder, depression, hopeless, panic disorder, schizophrenia, sleepless, suicidal, others All Other Systems: Reviewed and Negative Physical Exam General Appearance: No Apparent Distress (Patient has a no distress at time of evaluation.), Normal HEENT: Normal ENT Inspection, Pharynx Normal, TMs Normal Neck: Full Range of Motion, Non-Tender, Normal, Normal Inspection Respiratory: Chest Non-Tender, Lungs Clear, No Accessory Muscle Use, No Respiratory Distress, Normal Breath Sounds Cardiovascular: No Edema, No JVD, No Murmur, No Gallop, Normal Peripheral Puls es, Regular Rate/Rhythm Breast Exam: Deferred Gastrointestinal: Non Tender, No Pulsatile Mass, Normal Bowel Sounds, Soft, Other (Patient's wound VAC dressing is dirty, but the wound VAC itself is unremarkable. No signs of infection. Wound VAC bulb is dry and depressed.) Genitalia: Deferred Pelvic: Deferred Rectal: Deferred Extremities: No calf tenderness, Normal capillary refill, Normal inspection, Normal range of motion, Non-tender, No pedal edema Musculoskeletal : Apperance: Normal Neurologic: Alert, No Motor Deficits, Normal Affect, Normal Mood, No Sensory Deficits Cerebellar Function: Normal Reflexes: Normal Skin: Dry, Normal Color, Warm Lymphatic: No Adenopathy Was a procedure done? Was a procedure done?: No Differential Dx Considerations may include: Wound evaluation X-Ray, Labs, Meds, VS Vital Signs Date Time Temp Pulse Resp B/P (MAP) Pulse Ox O2 Delivery O2 Flow Rate FiO2 03/19/25 15:30 98.2 101 18 130/81 (97) 96 98.2 X-Ray, Labs, Meds, VS Comment Patient's dressing was changed and I advised the patient that his wound VAC is patent and is without infection. Patient should contact his surgeon on Thursday for discussions related to removal of that wound VAC. Time of 1ST Reevaluation: 15:42 Reevaluation 1ST: Unchanged Consultation: PCP, Surgery Patient Education/Counseling: Diagnosis, Treatment, Prognosis Family Education/Counseling: Diagnosis, Treatment, No Family Present SEPSIS Sepsis Screen Recent Procedure: No On Antibiotic Therapy: No Respiratory Rate >20: No Heart Rate >90: No Temp<36 C (96.8 F) or >38.3 C: No SBP <90 or MAP <65 mmHG: No New Acute Mental Status Change: No Is the patient on CPAP, BIPAP,: No Vital Signs Date Time Temp Pulse Resp B/P (MAP) Pulse Ox O2 Delivery O2 Flow Rate FiO2 03/19/25 15:30 98.2 101 18 130/81 (97) 96 98.2 Departure 1 Departure Time of Disposition: 15:42 Impression: Primary Impression: Encounter for evaluation of wound Disposition: 01 HOME / SELF CARE / HOMELESS Condition: Stable Additional Instructions: Advised patient contact his surgeon for discussions related to removal of wound VAC when appropriate. Discharged With: Self, Friend Critical Care Note Critical Care Time?: No Stability Stability form required: No Heart Score Heart Score: Heart Score Response (Comments) Value History N/A 0 EKG N/A 0 Age N/A 0 Risk Factors N/A 0 Troponin N/A 0 Total 0 I personally scribed for GABRIELLA ACOSTA PAC ([email or web address]) on 03/19/25 at 15:38. Electronically submitted by Hansel Lau ([email or web address]). I personally scribed for HANH KAUR MD ([email or web address]) on 03/19/25 at 17:34. Electronically submitted by Hansel Lau ([email or web address]). GABRIELLA ACOSTA PAC Mar 19, 2025 15:38 HANH KAUR MD Mar 19, 2025 17:34
--- NOTE | 2025-03-19 17:36 | ED.PDOC ---
History of Present Illness HPI Comments This patient is a morbidly obese 54-year-old male who presents to the ER no prior history associated with a chief complaint of a wound check. Patient reports that he had an appendectomy on the 13 of March at [facility] and has a manual wound VAC. wound VAC dressing is soiled and dirty, but patient does state he has been able to have successful bowel movements starting yesterday. Patient wants the wound to be checked and be removed. Denies chills, fever, N/V/D, SOB, CP. No other associated symptoms, modifiers, recent injuries or sick contacts present at this time. Vital signs were stable on arrival. Chief Complaint: Wound Check Time Seen by MD: 16:15 Primary Care Provider: JESSENIA Reviewed Notes: Nurses Notes, Medications, Allergies Allergies: Coded Allergies: NO KNOWN ALLERGIES (Unverified , 04/17/14) Home Meds Active Scripts Docusate Sodium (Colace) 100 Mg Cap, 1 CAP PO BID, #30 CAP Prov:THAI GABRIEL STEAM SHOVEL ENGINEER 03/16/25 Hydrocodone-Acetaminophen (Hydrocodone Bitartrate/AC 5-325 mg) 1 Tab Tab, 1 TAB PO Q8HP PRN for 5 Days, #15 TAB Prov:THAI GABRIEL STEAM SHOVEL ENGINEER 03/16/25 Amoxicillin & Pot Clavulanate (AUGMENTIN TABLET) 875 Mg Tb, 875 MG PO BID for 7 Days, #14 TAB Prov:THAI GABRIEL STEAM SHOVEL ENGINEER 03/16/25 Insulin Glargine (Basaglar Kwikpen) 100 Unit/Ml Inj, 10 UNIT SC DAILY@LUNCH for 31 Days, #1 INJ Prov:RAHUL PENA DO 08/05/23 Insulin Aspart (Novolog) 100 Unit/Ml Inj, 10 UNIT IJ DAILY@BREAKFAST for 31 Days, #1 INJ Prov:RAHUL PENA DO 08/05/23 Acetaminophen (Tylenol Extra Strength) 500 Mg Tab, 500 MG PO BID, #30 TAB Prov:JING US MD 03/29/23 Naproxen (Naproxen) 375 Mg Tab, 1 TAB PO BID, #60 TAB 1 Refill Prov:JING US MD 03/29/23 Rdiylqxy-Whcjsycann-Lvajzagzi- (Neosporin + Pain Relief) Relf Max Oin, 1 MAX EX TID, #120 OIN Prov:ABEBAJING Croft MD 03/29/23 Reported Medications Hydrocodone-Acetaminophen ([place] 10-325 mg) 1 Tab Tab, 1 TAB PO TIDPRN PRN for PAIN SCALE 7 THRU 10, TAB 06/26/20 Amlodipine Besylate (Amlodipine Besylate) 5 Mg Tab, 10 MG PO BID for 30 Days, MG 06/26/20 Meloxicam (Meloxicam) 15 Mg Tab, 1 TAB PO BID, #30 TAB 2 Refills 06/26/20 Information Source: Patient Mode of Arrival: Ambulatory Severity: Moderate Timing: Came on: Gradually Duration: Since onset Prehospital treatment: None Past Medical History PAST MEDICAL HISTORY: Denies Surgical History: Appendectomy Family History Family History: Reviewed,noncontributory to illness, Unknown, Family hx of HTN Social History Smoker: Non-Smoker Alcohol: Denies ETOH Use Drugs: Denies Drug Use Lives In: Home Constitutional: denies: chills, diaphoresis, fatigue, fever, malaise, sweats, weakness, others EENTM: denies: blurred vision, double vision, ear bleeding, ear discharge, ear drainage, ear pain, ear ringing, eye pain, eye redness, hearing loss, mouth pain, mouth swelling, nasal discharge, nose bleeding, nose congestion, nose pain, photophobia, tearing, throat pain, throat swelling, voice changes, others Respiratory: denies: cough, hemoptysis, orthopnea, SOB at rest, shortness of breath, SOB with excertion, stridor, wheezing, others Cardiovascular: denies: chest pain, dizzy spells, diaphoresis, Dyspnea on exertion, edema, irregular heart beat, left arm pain, lightheadedness, palpitations, PND, syncope, others Gastrointestinal: denies: abdomen distended, abdominal pain, blood streaked bowels, constipated, diarrhea, dysphagia, difficulty swallowing, hematemesis, melena, nausea, poor appetite, poor fluid intake, rectal bleeding, rectal pain, vomiting, others Genitourinary: denies: burning, dysuria, flank pain, frequency, hematuria, incontinence, penile discharge, penile sore, pain, testicle pain, testicle swelling, urgency, others Neurological: denies: dizziness, fainting, headache, left sided numbness, left sided weakness, numbness, paresthesia, pre-existing deficit, right sided numbness, right sided weakness, seizure, speech problems, tingling, tremors, weakness, others Musculoskeletal: denies: back pain, gout, joint pain, joint swelling, muscle pain, muscle stiffness, neck pain, others Integumetry: denies: bruises, change in color, change in hair/nails, dryness, laceration, lesions, lumps, rash, wounds, others Allergic/Immunocompromised: denies: Difficulty Healing, Frequent Infections, Hives, Itching, others Hematologic/Lymphatic: denies: anemia, blood clots, easy bleeding, easy bruising, swollen glands, others Endocrine: denies: excessive hunger, excessive sweating, excessive thirst, excessive urination, flushing, intolerance to cold, intolerance to heat, unexplained weight gain, unexplained weight loss, others Psychiatric: denies: anxiety, bipolar disorder, depression, hopeless, panic disorder, schizophrenia, sleepless, suicidal, others All Other Systems: Reviewed and Negative Physical Exam General Appearance: No Apparent Distress, Normal HEENT: Normal ENT Inspection, Pharynx Normal, TMs Normal Neck: Full Range of Motion, Non-Tender, Normal, Normal Inspection Respiratory: Chest Non-Tender, Lungs Clear, No Accessory Muscle Use, No Respiratory Distress, Normal Breath Sounds Cardiovascular: No Edema, No JVD, No Murmur, No Gallop, Normal Peripheral Pulses, Regular Rate/Rhythm Breast Exam: Deferred Gastrointestinal: No Organomegaly, Non Tender, No Pulsatile Mass, Normal Bowel Sounds, Soft Genitalia: Deferred Pelvic: Deferred Rectal: Deferred Extremities: No calf tenderness, Normal capillary refill, Normal inspection, Normal range of motion, Non-tender, No pedal edema Musculoskeletal : Apperance: Normal Neurologic: Alert, child development director II-XII nml as Tested, No Motor Deficits, Normal Affect, Normal Mood, No Sensory Deficits Cerebellar Function: Normal Reflexes: Normal Skin: Dry, Normal Color, Warm Lymphatic: No Adenopathy Was a procedure done? Was a procedure done?: No X-Ray, Labs, Meds, VS Vital Signs Date Time Temp Pulse Resp B/P (MAP) Pulse Ox O2 Delivery O2 Flow Rate FiO2 7/6/25 15:30 98.2 101 18 130/81 (97) 96 98.2 Time of 1ST Reevaluation: 16:45 Reevaluation 1ST: Unchanged Patient Education/Counseling: Diagnosis, Treatment, Prognosis SEPSIS Sepsis Screen Date sepsis recognized/suspect: Mar 19, 2025 Time Sepsis recognized/suspect: 1529 Recent Procedure: No On Antibiotic Therapy: No Respiratory Rate >20: No Heart Rate >90: No Temp<36 C (96.8 F) or >38.3 C: No SBP <90 or MAP <65 mmHG: No New Acute Mental Status Change: No Is the patient on CPAP, BIPAP,: No Vital Signs Date Time Temp Pulse Resp B/P (MAP) Pulse Ox O2 Delivery O2 Flow Rate FiO2 03/19/25 15:30 98.2 101 18 130/81 (97) 96 98.2 Departure 1 Departure Time of Disposition: 15:42 Impression: Primary Impression: Encounter for evaluation of wound Disposition: 01 HOME / SELF CARE Condition: Stable Additional Instructions: Advised patient contact his surgeon for discussions related to removal of wound VAC when appropriate. Discharged With: Self, Friend Critical Care Note Critical Care Time?: No Stability Stability form required: No I personally scribed for GABRIELLA ACOSTA PAC ([email or web address]) on 03/19/25 at 17:36. Electronically submitted by Hansel Lau ([email or web address]). GABRIELLA ACOSTA PAC Mar 19, 2025 17:36
== END 2025-03-19 16:15 | disposition home or self-care (01) ==
LOC: ER 15:17
DX: T81.89XD Other complications of procedures, not elsewhere classified, subsequent encounter (principal); Y92.89 Other specified places as the place of occurrence of the external cause

== ENCOUNTER 2025-06-18 13:28 | Inpatient (IN) | payer OTHER ==
[~2025-06-18] VITALS: Ht 182.9 cm; Wt 99.5 kg
[2025-06-18] MEDS: HYDROcodone-ACET 10/325MG TAB PO ONE (16:25)
[2025-06-18] MEDS: KETOROLAC TROMETH 60MG/2ML VIAL IM ONE (16:25)
--- NOTE | 2025-06-18 16:41 | DVH ---
CLINICAL INDICATION: Fall/trauma TECHNIQUE: 4 radiographic views of the left femur were obtained. Comparison: None FINDINGS/IMPRESSION: There is acute impacted subcapital /femoral neck fracture. No dislocation.
--- NOTE | 2025-06-18 17:07 | ED.PDOC ---
Musculoskeletal HPI Comments This patient is a obese 55-year-old male who arrives the ED today for evaluation of left hip, upper leg and knee pain concerns status post ground level fall three days ago. Patient states he had a mechanical trip and fall at that time. Patient states he is currently unable to bear weight in the left hip and has been chair bound for the past two days. Patient denies any fever nausea or vomiting. Patient denies any history of prior hip or leg fractures. Patient was hypertensive and tachycardic at arrival. Chief Complaint: Fall Injury Time Seen by MD: 15:50 Primary Care Provider: JESSENIA Reviewed Notes: Nurses Notes Allergies: Coded Allergies: NO KNOWN ALLERGIES (Unverified , 04/17/14) Home Meds Active Scripts Docusate Sodium (Colace) 100 Mg Cap, 1 CAP PO BID, #30 CAP Prov:THAI GABRIEL FELLMONGERING MACHINE OPERATOR 03/16/25 Hydrocodone-Acetaminophen (Hydrocodone Bitartrate/AC 5-325 mg) 1 Tab Tab, 1 TAB PO Q8HP PRN for 5 Days, #15 TAB Prov:THAI GABRIEL FELLMONGERING MACHINE OPERATOR 03/16/25 Amoxicillin & Pot Clavulanate (AUGMENTIN TABLET) 875 Mg Tb, 875 MG PO BID for 7 Days, #14 TAB Prov:THAI GABRIEL FELLMONGERING MACHINE OPERATOR 03/16/25 Insulin Glargine (Basaglar Kwikpen) 100 Unit/Ml Inj, 10 UNIT SC DAILY@LUNCH for 31 Days, #1 INJ Prov:RAHUL PENA S DO 08/05/23 Insulin Aspart (Novolog) 100 Unit/Ml Inj, 10 UNIT IJ DAILY@BREAKFAST for 31 Days, #1 INJ Prov:RAHUL PENA DO 08/05/23 Acetaminophen (Tylenol Extra Strength) 500 Mg Tab, 500 MG PO BID, #30 TAB Prov:JING US MD 03/29/23 Naproxen (Naproxen) 375 Mg Tab, 1 TAB PO BID, #60 TAB 1 Refill Prov:JING US MD 03/29/23 Tmwvrfqr-Oscpxnforj-Jjoblvbft- (Neosporin + Pain Relief) Relf Max Oin, 1 MAX EX TID, #120 OIN Prov:JING US MD 03/29/23 Reported Medications Hydrocodone-Acetaminophen ([place] 10-325 mg) 1 Tab Tab, 1 TAB PO TIDPRN PRN for PAIN SCALE 7 THRU 10, TAB 06/26/20 Amlodipine Besylate (Amlodipine Besylate) 5 Mg Tab, 10 MG PO BID for 30 Days, MG 06/26/20 Meloxicam (Meloxicam) 15 Mg Tab, 1 TAB PO BID, #30 TAB 2 Refills 06/26/20 Information Source: Patient Mode of Arrival: Ambulatory Location: Left Extremity Location: Femur, Hip Timing: Days Prehospital treatment: Pain Meds Severity: Severe Able to Move Extremity: No Bear Weight: No Pain: Severe Hand Dominance: Right Mechanism: Blunt Trauma Circumstances: Fall Onset of Symptoms: After Trauma Symptoms: Swelling, Pain DVT Risk Factors: NONE Past Medical History PAST MEDICAL HISTORY: Denies Surgical History: Appendectomy Family History Family History: Reviewed,noncontributory to illness, Unknown, Family hx of HTN Social History Smoker: Non-Smoker Alcohol: Denies ETOH Use Drugs: Denies Drug Use Lives In: Home Constitutional: denies: chills, diaphoresis, fatigue, fever, malaise, sweats, weakness, others EENTM: denies: blurred vision, double vision, ear bleeding, ear discharge, ear drainage, ear pain, ear ringing, eye pain, eye redness, hearing loss, mouth pain, mouth swelling, nasal discharge, nose bleeding, nose congestion, nose pain, photophobia, tearing, throat pain, throat swelling, voice changes, others Respiratory: denies: cough, hemoptysis, orthopnea, SOB at rest, shortness of breath, SOB with excertion, stridor, wheezing, others Cardiovascular: denies: chest pain, dizzy spells, diaphoresis, Dyspnea on exertion, edema, irregular heart beat, left arm pain, lightheadedness, palpitations, PND, syncope, others Gastrointestinal: denies: abdomen distended, abdominal pain, blood streaked bowels, constipated, diarrhea, dysphagia, difficulty swallowing, hematemesis, melena, nausea, poor appetite, poor fluid intake, rectal bleeding, rectal pain, vomiting, others Genitourinary: denies: burning, dysuria, flank pain, frequency, hematuria, incontinence, penile discharge, penile sore, pain, testicle pain, testicle swelling, urgency, others Neurological: denies: dizziness, fainting, headache, left sided numbness, left sided weakness, numbness, paresthesia, pre-existing deficit, right sided numbness, right sided weakness, seizure, speech problems, tingling, tremors, weakness, others Musculoskeletal: reports: others (Diffuse left hip and left femur pain extendin g into the knee.); denies: back pain, gout, joint pain, joint swelling, muscle pain, muscle stiffness, neck pain Integumetry: denies: bruises, change in color, change in hair/nails, dryness, laceration, lesions, lumps, rash, wounds, others Allergic/Immunocompromised: denies: Difficulty Healing, Frequent Infections, Hives, Itching, others Hematologic/Lymphatic: denies: anemia, blood clots, easy bleeding, easy bruising, swollen glands, others Endocrine: denies: excessive hunger, excessive sweating, excessive thirst, excessive urination, flushing, intolerance to cold, intolerance to heat, unexplained weight gain, unexplained weight loss, others Psychiatric: denies: anxiety, bipolar disorder, depression, hopeless, panic disorder, schizophrenia, sleepless, suicidal, others Physical Exam General Appearance: Moderate Distress (Due to left hip pain concerns.), Normal HEENT: Normal ENT Inspection, Pharynx Normal, TMs Normal Neck: Full Range of Motion, Non-Tender, Normal, Normal Inspection Respiratory: Chest Non-Tender, Lungs Clear, No Accessory Muscle Use, No Res piratory Distress, Normal Breath Sounds Cardiovascular: No Edema, No JVD, No Murmur, No Gallop, Normal Peripheral Pulses, Regular Rate/Rhythm Breast Exam: Deferred Gastrointestinal: No Organomegaly, Non Tender, No Pulsatile Mass, Normal Bowel Sounds, Soft Genitalia: Deferred Pelvic: Deferred Rectal: Deferred Extremities: Other (Diffuse lateral left hip tenderness to palpation throughout extending into the femur towards the knee. No edema or erythema but possible mild developing ecchymosis. Significant reduced range of motion. Patient can not bear weight.) Neurologic: Alert Cerebellar Function: NOT DONE Reflexes: NOT DONE Skin: Dry, Normal Color, Warm Lymphatic: No Adenopathy Was a procedure done? Was a procedure done?: No Differential Diagnosis EXT Differential Diagnosis: Fracture, Dislocation, Contusion X-Ray, Labs, Meds, VS Vital Signs Date Time Temp Pulse Resp B/P (MAP) Pulse Ox O2 Delivery O2 Flow Rate FiO2 10/5/25 16:33 89 18 97 Room Air 06/18/25 16:33 98.1 89 18 128/67 (87) 97 98.1 06/18/25 13:30 97.2 114 16 158/88 96 97.2 Current Medications Medications (Trade) Dose Ordered Sig/Ray Route Start Time Stop Time Status Last Admin Ketorolac Tromethamine (Toradol Injection) 30 mg ONCE ONCE IM 06/18/25 16:00 06/18/25 16:01 DC 06/18/25 16:25 Acetaminophen/ Hydrocodone Bitart ([place] 10/325MG Tab) 1 tab ONCE ONCE PO 06/18/25 16:00 06/18/25 16:01 DC 06/18/25 16:25 X-Ray, Labs, Meds, VS Comment All studies performed the ED were evaluated by me personally. Imaging studies confirmed a femoral neck fracture. Patient will be admitted for orthopedic evaluation. Dr. Morgan has been notified by text with imaging. Time of 1ST Reevaluation: 17:04 Reevaluation 1ST: Improved Consultation: PCP, Surgery Patient Education/Counseling: Diagnosis, Treatment Family Education/Counseling: Diagnosis, Treatment Departure 1 Departure Time of Disposition: 17:06 Impression: Primary Impression: Fracture of femoral neck, left, closed Disposition: ADMITTED INPATIENT Condition: Stable Discharged With: Self Critical Care Note Critical Care Time?: No Stability Stability form required: No Heart Score Heart Score: Heart Score Response (Comments) Value History N/A 0 EKG N/A 0 Age N/A 0 Risk Factors N/A 0 Troponin N/A 0 Total 0 GABRIELLA ACOSTA PAC Jun 18, 2025 17:07
[2025-06-19] VITALS (10 sets, daily range): BP systolic 128–147; BP diastolic 77–96; PULSE 76–98; RESP 13–18; TEMP 97.3–98.2; O2SAT 90–98
[2025-06-19 00:26] LABS: Hematocrit 40.6 % (41.0-53.0); Hemoglobin 13.9 g/dL (13.5-17.5); Mean Corpuscular Hemoglobin 28.9 pg (28.0-32.0); Mean Corpuscular Volume 84.2 fL (80.0-100.0); Nucleated Red Blood Cells % 0.0 %
[2025-06-19] MEDS ORDERED: MORPHINE SULFATE INJ 2 MG/ml SYRG IV PRN (00:30)
[2025-06-19] MEDS: SODIUM CHLORIDE 0.9% 1,000 ML IV SCH (00:30)
--- NOTE | 2025-06-19 00:31 | DVHHPRES ---
History of Present Illness Resident Creating Document: FERNY REYES RESIDENT History of Present Illness Mr. Pickard is a 55-year-old male with prior medical history of type 2 diabetes mellitus, who presents today with chief complaint of left hip pain. The patient states he fell down at the [facility] in [place] 3 days ago. He reports he had not seen a curb, tripped, and fell from his own height onto the concrete. He states he immediately felt sharp, excruciating pain in left hip/groin region, radiating down to his knee, 10/10 intensity, aggravated by bearing weight on his left lower limb and turning onto his left side, without relieving factors. He states since the fall he has had limited ambulation and currently relies on a cane, which he did not use before. He chest pain, nausea, vomiting, head trauma, loss of consciousness, palpitations, bleeding, and other symptoms. Due to persistence of pain and progressive limitation of ambulation, the patient presented for evaluation in the emergency department. on evaluation in the ED, the patient was slightly tachycardic and hypertensive. Initial labs show CBC within normal range, mild hyponatremia, and hyperglycemia. Left femur x-ray shows acute impacted subcapital /femoral neck fracture without dislocation. The patient was started on IV pain medication. He was admitted for further workup and monitoring. Endocrine: Diabetes Past Surgical History: Appendectomy Family History: None Smoke: <1 pack per day (States he smokes 1-2 cigarettes for the last 10 years) ALCOHOL: none Drugs: None Lives: with Family Domestic Violence: Neg Review of Systems Allergies: Coded Allergies: NO KNOWN ALLERGIES (Unverified , 04/17/14) Exam Vital Signs Vital Signs Date Time Temp Pulse Resp B/P (MAP) Pulse Ox O2 Delivery O2 Flow Rate FiO2 06/19/25 00:22 97.7 82 16 118/77 (91) 98 97.7 06/18/25 16:33 Room Air Exam General: The patient alert and oriented in person place and time. Patient following commands HEENT: Normocephalic, atraumatic, normal reactive pupils, EOM intact, pink conjunctiva, pink moist mucous membrane Respiratory/pulmonary: Bilateral chest expansion, no pain on palpation of chest wall, clear lungs bilaterally, vesicular murmurs present in almost all lung barron, no associated crackles or wheezes. Cardiovascular: Normal RRR, normal S1 and S2, no murmurs Abdomen: Abdomen nondistended, normal bowel sounds, soft, there is no pain to palpation in any of the abdominal quadrants, no palpable masses. Extremities: Left leg slightly externally rotated, limited range of motion of left hip, pain on minimal passive and active movements, pain on palpation of left hip region, there is no peripheral edema present at the lower extremities, normal pulses Skin: No rashes or pruritus, there is no sacral edema present at this time. Neurological: Intact cranial nerves with no focal neurologic deficits Labs/Xrays Labs Test 06/19/25 00:10 Range/Units White Blood Count 7.8 4.4-10.8 10^3/uL Red Blood Count 4.82 4.5-5.90 10^6/uL Hemoglobin 13.9 13.5-17.5 g/dL Hematocrit 40.6 L 41.0-53.0 % Mean Corpuscular Volume 84.2 80.0-100.0 fL Mean Corpuscular Hemoglobin 28.9 28.0-32.0 pg Mean Corpuscular Hemoglobin Concent 34.3 32.0-36.0 g/dL Red Cell Distribution Width 14.1 11.8-14.3 % Platelet Count 302 140-450 10^3/uL Mean Platelet Volume 8.0 6.9-10.8 fL Neutrophils (%) (Auto) 64.8 37.0-80.0 % Lymphocytes (%) (Auto) 24.6 10.0-50.0 % Monocytes (%) (Auto) 6.5 0.0-12.0 % Eosinophils (%) (Auto) 3.4 0.0-7.0 % Basophils (%) (Auto) 0.7 0.0-2.0 % Neutrophils # (Auto) 5.1 1.6-8.6 10 ^3/uL Lymphocytes # (Auto) 1.9 0.4-5.4 10 ^3/uL Monocytes # (Auto) 0.5 0-1.3 10 ^3/uL Eosinophils # (Auto) 0.3 0-0.8 10 ^3/uL Basophils # (Auto) 0.1 0-0.2 10 ^3/uL Nucleated Red Blood Cells 0.0 % SEPSIS Sepsis Screen Date sepsis recognized/suspect: Jun 18, 2025 Time Sepsis recognized/suspect: 1953 Recent Procedure: No On Antibiotic Therapy: No Respiratory Rate >20: No Heart Rate >90: No Temp<36 C (96.8 F) or >38.3 C: No SBP <90 or MAP <65 mmHG: No New Acute Mental Status Change: No Is the patient on CPAP, BIPAP,: No Physician Orders Comprehensive Metabolic Panel (06/18/25 23:55) PTPTT (06/18/25 23:55) Hemoglobin A1c (06/18/25 23:55) Thyroid Stimulating Hormone (06/18/25 23:55) Phosphorus (06/18/25 23:55) Vitamin D, 25-Hydroxy (06/18/25 23:55) Vitamin B12 (06/18/25 23:55) Urinalysis (06/18/25 23:55) Drug Screen (06/18/25 23:55) Admit (06/19/25 00:23) Allergies (06/19/25 00:23) Code Status (06/19/25 00:23) Npo (Nothing By Mouth) Diet (06/19/25 Breakfast) Condition: Stable (06/19/25 00:23) Morphine Sulfate Injection (06/19/25 00:30) Stat Ekg For Chest Pain (06/19/25 00:23) Notify Md Of Changes From Base (06/19/25 00:23) Emergency Dysrhythmia Protocol (06/19/25 00:23) Rhythm Strips Once Every Shift (06/19/25 00:23) Complete Blood Count (06/19/25 04:00) Basic Metabolic Panel (06/19/25 04:00) NS (06/19/25 00:30) Pantoprazole (Protonix) (06/19/25 10:00) * Orthopedic Consult (06/19/25 00:23) Electrocardigram (06/19/25 00:23) Vital Signs Date Time Temp Pulse Resp B/P (MAP) Pulse Ox O2 Delivery O2 Flow Rate FiO2 06/19/25 00:22 97.7 82 16 118/77 (91) 98 97.7 06/18/25 19:54 97.7 75 20 140/87 (104) 99 97.7 06/18/25 16:33 89 18 97 Room Air 06/18/25 16:33 98.1 89 18 128/67 (87) 97 98.1 Laboratory Tests Test 06/19/25 00:10 White Blood Count 7.8 10^3/uL (4.4-10.8) Medications Medications Dose Ordered Sig/Ray Route Start Time Stop Time Status Last Admin Dose Admin Acetaminophen/ Hydrocodone Bitart 1 tab ONCE ONCE PO 06/18/25 16:00 06/18/25 16:01 DC 06/18/25 16:25 1 TAB Ketorolac Tromethamine 30 mg ONCE ONCE IM 06/18/25 16:00 06/18/25 16:01 DC 06/18/25 16:25 30 MG Assessment/Plan Assessment/Plan Assessment and Plan: Left Femoral Neck Fracture - L femur x-ray: There is acute impacted subcapital/moral neck fracture. No dislocation. - Orthopedics consult has been placed - [place] 10/325 mg p.o. once - Toradol 30 mg IM once - Morphine 2 mg IV q.4 PRN - patient is currently NPO pending evaluation by Orthopedics Mild hyponatremia - Monitor sodium levels Uncontrolled type 2 diabetes mellitus with hyperglycemia, Hb A1c 10.7 - Mild SSI - Accu-Cheks - Consistent carbohydrate diet once NPO is lifted Amphetamine use - I have counseled the patient on the importance of complete drug cessation for over 13 minutes Tobacco use - I have counseled the patient on the importance of complete tobacco cessation for over 11 minutes. Diet: NPO DVT prophylaxis: Enoxaparin 40 mg SC daily GI prophylaxis: Protonix 40 mg IV daily Case discussed with Dr. Golden Goals of care discussed with the patient for over 28 minutes. Full code. Plan discussed with: Patient, Other My Orders Orders - FERNY REYES RESIDENT Procedure Category Date Status Time Comprehensive LAB 06/18/25 In Process Metabolic Panel 23:55 PTPTT LAB 06/18/25 In Process 23:55 Hemoglobin A1c LAB 06/18/25 In Process 23:55 Thyroid Stimulating LAB 06/18/25 In Process Hormone 23:55 Phosphorus LAB 06/18/25 In Process 23:55 Vitamin D, 25-Hydroxy LAB 06/18/25 In Process 23:55 Vitamin B12 LAB 06/18/25 In Process 23:55 Urinalysis LAB 06/18/25 Logged 23:55 Drug Screen LAB 06/18/25 Logged 23:55 Admit ADMIT 06/19/25 Verified 00:23 Allergies MURIEL 06/19/25 Verified 00:23 Code Status CODE 06/19/25 Verified 00:23 Npo (Nothing By DIET 06/19/25 Verified Mouth) Diet Breakfast Condition: Stable [facility]URIEL 06/19/25 Verified 00:23 Morphine Sulfate PHA 06/19/25 Verified Injection 00:30 Stat Ekg For Chest [facility] 06/19/25 Verified Pain 00:23 Notify Md Of Changes [facility] 06/19/25 Verified From Base 00:23 Emergency Dysrhythmia [facility]EL 06/19/25 Verified Protocol 00:23 Rhythm Strips Once [facility] 06/19/25 Verified Every Shift 00:23 Complete Blood Count LAB 06/19/25 Verified 04:00 Basic Metabolic Panel LAB 06/19/25 Verified 04:00 NS PHA 06/19/25 Verified 00:30 Pantoprazole PHA 06/19/25 Verified (Protonix) 10:00 * Orthopedic Consult CONS 06/19/25 Verified 00:23 Electrocardigram EKG 06/19/25 Verified 00:23 Date of Service: Jun 19, 2025 Billing Provider: YANET GOLDEN MD Common Visit Codes: [id number] INP/OBS CARE (HIGH) Secondary Visit Codes: [id number] CARE PLAN 30 MINUTES FERNY REYES RESIDENT Jun 19, 2025 00:31
[2025-06-19 00:40] LABS: INR 0.96 (0.9-1.15); Partial Thromboplastin Time 26.9 SEC (24.5-34.5); Prothrombin Time 10.2 sec (9.3-11.8)
[2025-06-19 00:42] LABS: Alanine Aminotransferase 18 U/L (7-40); Albumin 4.1 g/dL (3.2-4.8); Alkaline Phosphatase 92 U/L (46-116); Anion Gap 8 (5-15); BUN/Creatinine Ratio 17.5 (10.0-20.0); Bilirubin, Total 0.3 mg/dL (0.2-1.0); Blood Urea Nitrogen 20 mg/dL (9-23); Calcium 8.9 mg/dL (8.7-10.4); Carbon Dioxide 27 mmol/L (20-31); Chloride 100 mmol/L (98-107); Potassium 4.0 mmol/L (3.5-5.1); Total Protein 7.1 g/dL (5.7-8.2)
[2025-06-19 00:44] LABS: Glucose 290 mg/dL (74-106); Sodium 135 mmol/L (136-145)
[2025-06-19] MEDS ORDERED: DEXTROSE (50%) 50ML SYRG IV PRN (01:00)
[2025-06-19 03:57] LABS: Chloride 100 mmol/L (98-107); Potassium 4.3 mmol/L (3.5-5.1); Sodium 136 mmol/L (136-145)
[2025-06-19 03:58] LABS: Anion Gap 8 (5-15); Calcium 9.0 mg/dL (8.7-10.4); Carbon Dioxide 28 mmol/L (20-31)
[2025-06-19 04:03] LABS: BUN/Creatinine Ratio 19.3 (10.0-20.0); Blood Urea Nitrogen 21 mg/dL (9-23)
[2025-06-19 04:07] LABS: Glucose 270 mg/dL (74-106); Hematocrit 40.0 % (41.0-53.0); Hemoglobin 13.6 g/dL (13.5-17.5); Mean Corpuscular Hemoglobin 28.8 pg (28.0-32.0); Mean Corpuscular Volume 84.5 fL (80.0-100.0); Nucleated Red Blood Cells % 0.1 %
[2025-06-19] MEDS: InsuLIN REG 1unit/0.01ml Soln (100units/ml) SC SCH (06:00)
[2025-06-19] MEDS: ACCU-CHEK COMFORT CURVE STRIP VI SCH (06:00)
[2025-06-19 06:52] LABS: Urine Protein, UAD Negative (Negative)
[2025-06-19 07:18] LABS: Opiate Scree,Urine Neg (NEGATIVE)
[2025-06-19 07:19] LABS: Amphetamine Screen, Urine Pos (NEGATIVE); Barbiturate Scree,Urine Neg (NEGATIVE); Benzodiazephine Screen, Urine Neg (NEGATIVE); Cannabinoid Screen, Urine Neg (NEGATIVE); Cocaine Screen, Urine Neg (NEGATIVE); Phencyclidine Screen, Urine Neg (NEGATIVE)
--- NOTE | 2025-06-19 08:21 | DVH ---
CHEST RADIOGRAPH Indication: PRE-OP EVAL Technique: Single frontal view of the chest was obtained COMPARISON: XY CHEST PORTABLE on DOS: 03/12/25, XY CHEST PORTABLE on DOS: 08/05/23, CHEST PORTABLE on DOS: 06/25/20, CHEST PORTABLE on DOS: 12/21/19 FINDINGS: Lines and Tubes: None Lungs: Clear Pleura: No effusion. No pneumothorax. Cardiomediastinal contours: Unremarkable Bones: Unremarkable IMPRESSION: No acute disease.
[2025-06-19] MEDS: ceFAZolin 2 GM/D5W50ml 50 ML IV ONE (08:47)
[2025-06-19] MEDS ORDERED: MIDAZOLAM HCL 2MG/2ML 2ml VIAL (1mg/ml) ONE (09:16)
[2025-06-19] MEDS ORDERED: fentaNYL CITRATE 100 MCG/2 ML VL ONE (09:16)
[2025-06-19] MEDS: BUPIVACAINE 0.25% INJ 50ML VIAL ONE (09:48)
[2025-06-19] MEDS ORDERED: PROPOFOL 10 MG/ML 20 ML IV ONE (09:58)
[2025-06-19] MEDS ORDERED: ONDANSETRON HCL 4 MG/2 ML VIAL ONE (09:59)
[2025-06-19] MEDS ORDERED: ENOXAPARIN SOD 40 MG/0.4 ML SYRINGE SC SCH (10:00)
[2025-06-19] MEDS: PANTOPRAZOLE 40 MG/10 ML VIAL INJ IV SCH (10:00)
[2025-06-19] MEDS ORDERED: ONDANSETRON HCL 4 MG/2 ML VIAL IV PRN (10:45)
[2025-06-19] MEDS ORDERED: HYDROmorphone HCL 2 MG/ML VL/or syr IV PRN (10:45)
[2025-06-19] MEDS ORDERED: MORPHINE SULFATE 4 MG/ML SYR/VIAL IV PRN (10:45)
[2025-06-19] MEDS ORDERED: MIDAZOLAM HCL 2MG/2ML 2ml VIAL (1mg/ml) IV PRN (10:45)
[2025-06-19] MEDS ORDERED: hydrALAZINE HCL 20 MG/ML VL IV PRN (10:45)
--- NOTE | 2025-06-19 10:53 | DVHINCON2 ---
Date of service: Jun 18, 2025 Reason for Consultation Left hip fracture History of Present Illness 55 yo M sp mechanical fall on left side. hx of IVDA. Immediate pain/swelling/inability to bear weight on left leg. No cp/sob/abd pain. Family History: Cerebrovascular accident (CVA) G8 FATHER Colon cancer G8 MOTHER Diabetes mellitus G8 MOTHER Allergies: Coded Allergies: NO KNOWN ALLERGIES (Unverified , 04/17/14) Home Meds Active Scripts Insulin Glargine (Basaglar Kwikpen) 100 Unit/Ml Inj, 10 UNIT SC DAILY@LUNCH for 31 Days, #1 INJ Prov:RAHUL PENA S DO 08/05/23 Insulin Aspart (Novolog) 100 Unit/Ml Inj, 10 UNIT IJ DAILY@BREAKFAST for 31 Days, #1 INJ Prov:RAHUL PENA S DO 08/05/23 Current Medications Current Medications Medications (Trade) Dose Ordered Sig/Ray Route PRN Reason Start Time Stop Time Status Last Admin Morphine Sulfate 2 mg Q4HPRN PRN IV SEVERE PAIN (7-10 PAIN SCALE) 06/19/25 00:30 Sodium Chloride 1,000 ml @ 100 mls/hr Q10H IV 06/19/25 00:30 06/19/25 06:16 Pantoprazole Sodium (Protonix) 40 mg DAILY IV 06/19/25 10:00 Enoxaparin Sodium (Lovenox) 40 mg DAILY SC 06/19/25 10:00 06/19/25 08:39 DC Diagnostic Test (Pha) (Accu-Chek Comfort Curve T) 1 strip Q6HR 06/19/25 06:00 06/19/25 06:00 Insulin Human Regular (InsuLIN R) Q6HR SC 06/19/25 06:00 Dextrose 50 ml UD PRN IV Blood Sugar LESS THAN 60 06/19/25 01:00 Cefazolin Sodium/ Dextrose 50 ml @ 50 mls/hr Q8H IV 06/19/25 17:00 06/20/25 09:59 Ondansetron HCl (Zofran) 4 mg ONCE PRN IV NAUSEA / VOMITING 06/19/25 10:45 06/19/25 10:49 DC Hydralazine HCl (Apresoline Injection) 5 mg Q10M PRN IV SBP>160 06/19/25 10:45 06/19/25 11:36 Midazolam HCl (Versed Injection) 1 mg Q10M PRN IV ANXIETY 06/19/25 10:45 06/19/25 11:26 Ephedrine Sulfate (ePHEDrine SULFATE) 10 mg Q10M PRN IV SBP LESS THAN 90 06/19/25 10:45 06/19/25 11:26 Hydromorphone HCl (Dilaudid Injection) 0.5 mg Q10M PRN IV SEVERE PAIN (7-10 PAIN SCALE) 06/19/25 10:45 06/19/25 11:26 Morphine Sulfate 2 mg Q4H PRN IV BREAKTHRU PAIN SCALE 7-10 06/19/25 10:45 06/19/25 14:46 Vital Signs Vital Signs Date Time Temp Pulse Resp B/P (MAP) Pulse Ox O2 Delivery O2 Flow Rate FiO2 06/19/25 09:02 98.2 87 18 140/94 (109) 98 98.2 06/19/25 04:17 Room Air* 0 21 Labs/Diagnostic Data Labs Test 06/19/25 06:19 06/19/25 03:14 06/19/25 00:10 06/18/25 06:41 Range/Units POC Glucose 232 H 70-106 mg/dl White Blood Count 7.4 4.4-10.8 10^3/uL Red Blood Count 4.73 4.5-5.90 10^6/uL Hemoglobin 13.6 13.5-17.5 g/dL Hematocrit 40.0 L 41.0-53.0 % Mean Corpuscular Volume 84.5 80.0-100.0 fL Mean Corpuscular Hemoglobin 28.8 28.0-32.0 pg Mean Corpuscular Hemoglobin Concent 34.1 32.0-36.0 g/dL Red Cell Distribution Width 14.3 11.8-14.3 % Platelet Count 301 140-450 10^3/uL Mean Platelet Volume 8.0 6.9-10.8 fL Neutrophils (%) (Auto) 62.0 37.0-80.0 % Lymphocytes (%) (Auto) 25.9 10.0-50.0 % Monocytes (%) (Auto) 7.6 0.0-12.0 % Eosinophils (%) (Auto) 3.7 0.0-7.0 % Basophils (%) (Auto) 0.8 0.0-2.0 % Neutrophils # (Auto) 4.6 1.6-8.6 10 ^3/uL Lymphocytes # (Auto) 1.9 0.4-5.4 10 ^3/uL Monocytes # (Auto) 0.6 0-1.3 10 ^3/uL Eosinophils # (Auto) 0.3 0-0.8 10 ^3/uL Basophils # (Auto) 0.1 0-0.2 10 ^3/uL Nucleated Red Blood Cells 0.1 % Sodium Level 136 136-145 mmol/L Potassium Level 4.3 3.5-5.1 mmol/L Chloride Level 100 98-107 mmol/L Carbon Dioxide Level 28 20-31 mmol/L Anion Gap 8 5-15 Blood Urea Nitrogen 21 9-23 mg/dL Creatinine 1.09 0.700-1.30 mg/dL Glomerular Filtration Rate Calc 79 >90 mL/min BUN/Creatinine Ratio 19.3 10.0-20.0 Serum Glucose 270 H 74-106 mg/dL Calcium Level 9.0 8.7-10.4 mg/dL Prothrombin Time 10.2 9.3-11.8 sec Prothrombin Time INR 0.96 0.9-1.15 Activated Partial Thromboplast Time 26.9 24.5-34.5 SEC Hemoglobin A1c 10.7 H <5.7 % A1C Phosphorus Level 4.1 2.4-5.1 mg/dL Total Bilirubin 0.3 0.2-1.0 mg/dL Aspartate Amino Transferase (AST) 13 13-40 U/L Alanine Aminotransferase (ALT) 18 7-40 U/L Alkaline Phosphatase 92 46-116 U/L Total Protein 7.1 5.7-8.2 g/dL Albumin 4.1 3.2-4.8 g/dL Thyroid Stimulating Hormone (TSH) 2.74 0.55-4.78 uIU/mL Urine Color Light-yellow Yellow Urine Clarity Clear Clear Urine pH 5.5 5.0-9.0 Urine Specific [place] 1.020 1.001-1.035 Urine Protein Negative Negative Urine Ketones Negative Negative Urine Blood Negative Negative /uL Urine Nitrite Negative Negative Urine Bilirubin Negative Negative Urine Urobilinogen Normal Negative mg/dL Urine Leukocyte Esterase Negative Negative /uL Urine RBC None seen 0 - 3 /hpf Urine Microscopic WBC < 1 0-3 /HPF Urine Squamous Epithelial Cells Few <5 /hpf Urine Bacteria Few H None Seen /hpf Urine Glucose 4+ H Normal mg/dL Urine Opiates Screen Neg NEGATIVE Urine Fentanyl Screen Neg NEGATIVE Urine Barbiturates Screen Neg NEGATIVE Urine Phencyclidine Screen Neg NEGATIVE Urine Amphetamines Screen Pos NEGATIVE Urine Benzodiazepines Screen Neg NEGATIVE Urine Cocaine Screen Neg NEGATIVE Urine Cannabinoids Screen Neg NEGATIVE Plan/Recommendation 55 yo M with nondisplaced left femoral neck fracture 1. I had a long discussion with patient regarding her condition. Questions for patient answered. Risks benefits options and alternatives reviewed in depth. Risks include but not exclusive to bleeding infection nerve injury hardware failure nonunion malunion chronic pain blood clots cardiac and pulmonary complications amputation and . Patient understands and wishes to proceed with surgery. He understands fracture may not heal and may need joint rep lacement in future 2. Plan for open reduction internal fixation of left hip fracture with Dr. Morgan/Luis 3. NWLenny PIERCE 4. Pain control Plan discussed with: Patient RAQUEL MORGAN MD Jun 19, 2025 10:53
[2025-06-19] MEDS: KETOROLAC TROMETH 30 MG/ML 1ML VIAL IV ONE (11:05)
[2025-06-19 11:37] LABS: Hepatitis B Surface Antigen Negative (Negative)
[2025-06-19 11:58] LABS: Hepatitis C Antibody Negative (Negative)
--- NOTE | 2025-06-19 12:07 | DVH ---
FLUOROSCOPY TIME: 94 seconds TECHNIQUE: Intraoperative radiographs of the left hip were obtained. COMPARISON: None FINDINGS: Refer to intraoperative report for further evaluation. IMPRESSION: Refer to intraoperative report for further evaluation.
[2025-06-19 14:28] LABS: Hemoglobin 9.3 g/dL (13.5-17.5)
[2025-06-19 14:29] LABS: Hematocrit 28.6 % (41.0-53.0)
--- NOTE | 2025-06-19 14:42 | DVHPNRES ---
Progress Note Date Seen: Jun 19, 2025 Resident Creating Document: MARY CERNA RESIDENT Has the PT tested + for MRSA If YES, has PT been informed?: No Medical Necessity Reason Pt with a Central, PICC or Fol: No Subjective Review of Systems Mr. Pickard is a 55-year-old male with prior medical history of type 2 diabetes mellitus, who presents today with chief complaint of left hip pain. The patient states he fell down at the [facility] in [place] 3 days ago. He reports he had not seen a curb, tripped, and fell from his own height onto the concrete. He states he immediately felt sharp, excruciating pain in left hip/groin region, radiating down to his knee, 10/10 intensity, aggravated by bearing weight on his left lower limb and turning onto his left side, without relieving factors. He states since the fall he has had limited ambulation and currently relies on a cane, which he did not use before. He chest pain, nausea, vomiting, head trauma, loss of consciousness, palpitations, bleeding, and other symptoms. Due to persistence of pain and progressive limitation of ambulation, the patient presented for evaluation in the emergency department. on evaluation in the ED, the patient was slightly tachycardic and hypertensive. Initial labs show CBC within normal range, mild hyponatremia, and hyperglycemia. Left femur x-ray shows acute impacted subcapital /femoral neck fracture without dislocation. The patient was started on IV pain medication. He was admitted for further workup and monitoring. Endocrine: Diabetes Past Surgical History: Appendectomy Family History: None Smoke: <1 pack per day (States he smokes 1-2 cigarettes for the last 10 years) ALCOHOL: none Drugs: None Lives: with Family ROS: 06/19/2025: Patient was seen and examined by me at the bedside. Surgery consult was placed and they did an open reduction and internal fixation of left hip today. Post surgery hemoglobin is at 9.3. We will continue to monitor. Physical therapy evaluation has been ordered. Objective vital signs Vital Sign Date Time Temp Pulse Resp B/P (MAP) Pulse Ox O2 Delivery O2 Flow Rate FiO2 06/19/25 12:46 98.0 83 18 128/77 (94) 92 98.0 06/19/25 10:35 Mask 6.0 06/19/25 10:35 96 Total Intake and Output 06/18/25 06/18/25 06/19/25 15:00 23:00 07:00 Intake Total 0 ml Balance 0 ml medications Current Medications Medications Dose Ordered Sig/Ray Route Start Time Stop Time Status Last Admin Dose Admin Morphine Sulfate 2 mg Q4HPRN PRN IV 06/19/25 00:30 Sodium Chloride 1,000 ml @ 100 mls/hr Q10H IV 06/19/25 00:30 06/19/25 06:16 100 MLS/HR Pantoprazole Sodium 40 mg DAILY IV 06/19/25 10:00 Diagnostic Test (Pha) 1 strip Q6HR 06/19/25 06:00 06/19/25 12:16 1 STRIP Insulin Human Regular Q6HR SC 06/19/25 06:00 06/19/25 12:31 6 UNITS Dextrose 50 ml UD PRN IV 06/19/25 01:00 Cefazolin Sodium/ Dextrose 50 ml @ 50 mls/hr Q8H IV 06/19/25 17:00 06/20/25 09:59 Morphine Sulfate 2 mg Q4H PRN IV 06/19/25 10:45 06/19/25 14:46 Examination General: The patient alert and oriented in person place and time. HEENT: Normocephalic, atraumatic, normal reactive pupils, EOM intact, pink conjunctiva, pink moist mucous membrane Respiratory/pulmonary: Bilateral chest expansion, no pain on palpation of chest wall, clear lungs bilaterally, vesicular murmurs present in almost all lung barron, no associated crackles or wheezes. Cardiovascular: Normal RRR, normal S1 and S2, no murmurs Abdomen: Abdomen nondistended, normal bowel sounds, soft, there is no pain to palpation in any of the abdominal quadrants, no palpable masses. Extremities: pain on minimal passive and active movements, pain on palpation of left hip region, there is no peripheral edema present at the lower extremities, normal pulses Skin: No rashes or pruritus, there is no sacral edema present at this time. Neurological: Intact cranial nerves with no focal neurologic deficits laboratory and microbiology Laboratory Tests 06/19/25 14:00 06/19/25 03:14 Test 06/19/25 03:14 Range/Units Serum Glucose 270 H 74-106 mg/dL Labs and/or images reviewed: Labs reviewed by me, Image(s) reviewed by me Problem List/Assessment/Plan Problem List/Assessment/Plan #Left Femoral Neck Fracture - L femur x-ray: There is acute impacted subcapital/moral neck fracture. No dislocation. - Orthopedics consultation done and ORIF of the left hip done on 06/19/2025 - [facility] [facility] 10/325 mg p.o. once - Toradol 30 mg IM once - Morphine 2 mg IV q.4 PRN - physical therapy - IV fluids sodium chloride 1000 mL at 100 mL/hour Q10 - IV cefazolin Q8 #Uncontrolled type 2 diabetes mellitus with hyperglycemia, Hb A1c 10.7 - Mild SSI - Accu-Cheks - Consistent carbohydrate diet once NPO is lifted #Amphetamine use - Patient has been counseled regarding the side effects and the importance of complete drug cessation. #Tobacco use - Patient has been counseled regarding the side effects of prolonged smoking in the need of complete cessation #Mild hyponatremia - Monitor sodium levels Diet: regular diet DVT prophylaxis: Enoxaparin 40 mg SC daily GI prophylaxis: Protonix 40 mg IV daily Case discussed with Dr. Golden Plan discussed with: Patient My Orders My Orders Orders - MARY CERNA Procedure Category Date Status Time Pt Request For Service PT 06/19/25 Logged 14:26 Basic Metabolic Panel LAB 06/20/25 Verified 04:00 Complete Blood Count LAB 06/20/25 Verified 04:00 Date of Service: Jun 19, 2025 Billing Provider: YANET GOLDEN MD Common Visit Codes: [id number] INP/OBS CARE(HIGH) MARY CERNA Jun 19, 2025 14:42 YANET GOLDEN MD Jun 19, 2025 18:28
[2025-06-19] MEDS: ceFAZolin 2 GM/D5W50ml 50 ML IV SCH (17:30)
--- NOTE | 2025-06-19 18:41 | DVHINCON2 ---
Date of service: Jun 19, 2025 Referring Physician Transfer of care for medical management. Reason for Consultation Contracted provider for [facility]. Notified by insurance group to take over care. History of Present Illness Elmer Pickard is a 55-year-old M with a Past Medical History pertinent for Type 2 diabetes mellitus who presented to the hospital with complaint of left hip pain. Patient states he fell down at the [facility] in [place] 3 days [employer]. Patient states he did not see curb, tripped and fell from his own height onto the concrete. Reports immediately feeling sharp, excruciating pain in left hip/groin region that radiated down to his knee. During ED course, patient was found slightly tachycardic and hypertensive. UDS was positive for Amphetamines. Left femur x-ray showed acute impacted subcapital /femoral neck fracture without dislocation. Orthopedic Surgery consult was placed and patient underwent open reduction and internal fixation of left hip today. Patient denies any chest pain, shortness of breath or abdominal pain. Allergies: Coded Allergies: NO KNOWN ALLERGIES (Unverified , 04/17/14) Home Meds Active Scripts Insulin Glargine (Basaglar Kwikpen) 100 Unit/Ml Inj, 10 UNIT SC DAILY@LUNCH for 31 Days, #1 INJ Prov:SUSANURINILESHMistiGREGORYNupur S DO 08/05/23 Insulin Aspart (Novolog) 100 Unit/Ml Inj, 10 UNIT IJ DAILY@BREAKFAST for 31 Days, #1 INJ Prov:SUSANURINILESHMistiGREGORYNupur S DO 08/05/23 Current Medications Current Medications Medications (Trade) Dose Ordered Sig/Ray Route PRN Reason Start Time Stop Time Status Last Admin Morphine Sulfate 2 mg Q4HPRN PRN IV SEVERE PAIN (7-10 PAIN SCALE) 06/19/25 00:30 Sodium Chloride 1,000 ml @ 100 mls/hr Q10H IV 06/19/25 00:30 06/19/25 06:16 Pantoprazole Sodium (Protonix) 40 mg DAILY IV 06/19/25 10:00 Enoxaparin Sodium (Lovenox) 40 mg DAILY SC 06/19/25 10:06/19/25 08:39 DC Diagnostic Test (Pha) (Accu-Chek Comfort Curve T) 1 strip Q6HR 06/19/25 06:00 06/19/25 17:30 Insulin Human Regular (InsuLIN R) Q6HR SC 06/19/25 06:00 06/19/25 18:13 Dextrose 50 ml UD PRN IV Blood Sugar LESS THAN 60 06/19/25 01:00 Cefazolin Sodium/ Dextrose 50 ml @ 50 mls/hr Q8H IV 06/19/25 17:00 06/20/25 09:59 06/19/25 17:30 Ondansetron HCl (Zofran) 4 mg ONCE PRN IV NAUSEA / VOMITING 06/19/25 10:45 06/19/25 10:49 DC Hydralazine HCl (Apresoline Injection) 5 mg Q10M PRN IV SBP>160 06/19/25 10:45 06/19/25 11:36 DC Midazolam HCl (Versed Injection) 1 mg Q10M PRN IV ANXIETY 06/19/25 10:45 06/19/25 11:26 DC Ephedrine Sulfate (ePHEDrine SULFATE) 10 mg Q10M PRN IV SBP LESS THAN 90 06/19/25 10:45 06/19/25 11:26 DC Hydromorphone HCl (Dilaudid Injection) 0.5 mg Q10M PRN IV SEVERE PAIN (7-10 PAIN SCALE) 06/19/25 10:45 06/19/25 11:26 DC Morphine Sulfate 2 mg Q4H PRN IV BREAKTHRU PAIN SCALE 7-10 06/19/25 10:45 06/19/25 14:46 DC Family History: Cerebrovascular accident (CVA) G8 FATHER Colon cancer G8 MOTHER Diabetes mellitus G8 MOTHER Review of Systems Musculoskeletal: Positive for left hip pain. All other systems reviewed and negative unless otherwise noted in HPI. H&P Exam Vital Signs/I&O Vital Sign Date Time Temp Pulse Resp B/P (MAP) Pulse Ox O2 Delivery O2 Flow Rate FiO2 06/19/25 16:39 98.0 86 18 129/77 (94) 90 98.0 06/19/25 10:35 Mask 6.0 06/19/25 10:35 96 Intake and Output 06/18/25 06/19/25 19:00 07:00 Intake Total 0 ml Balance 0 ml Intake Oral 0 ml Physical Exam Vitals and nursing notes reviewed. General: In no acute distress. HEENT: Normocephalic, atraumatic, normal reactive pupils, EOM intact, pink conjunctiva, pink moist mucous membrane Respiratory/pulmonary: Bilateral chest expansion, no pain on palpation of chest wall, clear lungs bilaterally, vesicular murmurs present in almost all lung barron, no associated crackles or wheezes. Cardiovascular: Normal RRR, normal S1 and S2, no murmurs Abdomen: Abdomen nondistended, normal bowel sounds, soft, there is no pain to palpation in any of the abdominal quadrants, no palpable masses. Extremities: Pain on palpation of left hip region. No peripheral edema present at the lower extremities, normal pulses. Skin: No rashes or pruritus, there is no sacral edema present at this time. Neurological: Intact cranial nerves with no focal neurologic deficits Labs/Diagnostic Data Labs/Diagnostic Data Laboratory Tests Test 06/19/25 17:37 06/19/25 17:33 06/19/25 14:00 06/19/25 12:18 Range/Units POC Glucose 457 *H 484 *H 283 H 70-106 mg/dl Hemoglobin 9.3 #L 13.5-17.5 g/dL Hematocrit 28.6 #L 41.0-53.0 % Test 06/19/25 06:19 06/19/25 03:14 06/19/25 00:10 06/18/25 06:41 Range/Units POC Glucose 232 H 70-106 mg/dl White Blood Count 7.4 7.8 4.4-10.8 10^3/uL Red Blood Count 4.73 4.82 4.5-5.90 10^6/uL Hemoglobin 13.6 13.9 13.5-17.5 g/dL Hematocrit 40.0 L 40.6 L 41.0-53.0 % Mean Corpuscular Volume 84.5 84.2 80.0-100.0 fL Mean Corpuscular Hemoglobin 28.8 28.9 28.0-32.0 pg Mean Corpuscular Hemoglobin Concent 34.1 34.3 32.0-36.0 g/dL Red Cell Distribution Width 14.3 14.1 11.8-14.3 % Platelet Count 301 302 140-450 10^3/uL Mean Platelet Volume 8.0 8.0 6.9-10.8 fL Neutrophils (%) (Auto) 62.0 64.8 37.0-80.0 % Lymphocytes (%) (Auto) 25.9 24.6 10.0-50.0 % Monocytes (%) (Auto) 7.6 6.5 0.0-12.0 % Eosinophils (%) (Auto) 3.7 3.4 0.0-7.0 % Basophils (%) (Auto) 0.8 0.7 0.0-2.0 % Neutrophils # (Auto) 4.6 5.1 1.6-8.6 10 ^3/uL Lymphocytes # (Auto) 1.9 1.9 0.4-5.4 10 ^3/uL Monocytes # (Auto) 0.6 0.5 0-1.3 10 ^3/uL Eosinophils # (Auto) 0.3 0.3 0-0.8 10 ^3/uL Basophils # (Auto) 0.1 0.1 0-0.2 10 ^3/uL Nucleated Red Blood Cells 0.1 0.0 % Sodium Level 136 135 L 136-145 mmol/L Potassium Level 4.3 4.0 3.5-5.1 mmol/L Chloride Level 100 100 98-107 mmol/L Carbon Dioxide Level 28 27 20-31 mmol/L Anion Gap 8 8 5-15 Blood Urea Nitrogen 21 20 9-23 mg/dL Creatinine 1.09 1.14 0.700-1.30 mg/dL Glomerular Filtration Rate Calc 79 75 >90 mL/min BUN/Creatinine Ratio 19.3 17.5 10.0-20.0 Serum Glucose 270 H 290 H 74-106 mg/dL Calcium Level 9.0 8.9 8.7-10.4 mg/dL Hepatitis B Surface Antigen Negative Negative Hepatitis C Antibody Negative Negative Prothrombin Time 10.2 9.3-11.8 sec Prothrombin Time INR 0.96 0.9-1.15 Activated Partial Thromboplast Time 26.9 24.5-34.5 SEC Hemoglobin A1c 10.7 H <5.7 % A1C Phosphorus Level 4.1 2.4-5.1 mg/dL Total Bilirubin 0.3 0.2-1.0 mg/dL Aspartate Amino Transferase (AST) 13 13-40 U/L Alanine Aminotransferase (ALT) 18 7-40 U/L Alkaline Phosphatase 92 46-116 U/L Total Protein 7.1 5.7-8.2 g/dL Albumin 4.1 3.2-4.8 g/dL Vitamin B12 Level 427 211-911 pg/mL Vitamin D 25-Hydroxy 33.5 30.0-100 ng/mL Thyroid Stimulating Hormone (TSH) 2.74 0.55-4.78 uIU/mL Urine Color Light-yellow Yellow Urine Clarity Clear Clear Urine pH 5.5 5.0-9.0 Urine Specific [place] 1.020 1.001-1.035 Urine Protein Negative Negative Urine Ketones Negative Negative Urine Blood Negative Negative /uL Urine Nitrite Negative Negative Urine Bilirubin Negative Negative Urine Urobilinogen Normal Negative mg/dL Urine Leukocyte Esterase Negative Negative /uL Urine RBC None seen 0 - 3 /hpf Urine Microscopic WBC < 1 0-3 /HPF Urine Squamous Epithelial Cells Few <5 /hpf Urine Bacteria Few H None Seen /hpf Urine Glucose 4+ H Normal mg/dL Urine Opiates Screen Neg NEGATIVE Urine Fentanyl Screen Neg NEGATIVE Urine Barbiturates Screen Neg NEGATIVE Urine Phencyclidine Screen Neg NEGATIVE Urine Amphetamines Screen Pos NEGATIVE Urine Benzodiazepines Screen Neg NEGATIVE Urine Cocaine Screen Neg NEGATIVE Urine Cannabinoids Screen Neg NEGATIVE Assessment Left femoral neck fracture Uncontrolled Type 2 Diabetes Mellitus with hyperglycemia Amphetamine use Plan/Recommendation Admitted to inpatient. Orthopedic Surgery consulted. S/p ORIF of left hip fracture today with Dr. Morgan. PT eval and treat. Non-weightbearing LLE. Regular insulin per protocol. Accu-checks. IV antibiotics for surgical prophylaxis. IVFs with NS at 100 mL/hr. DVT/GI prophylaxis. Pain management prn. Patient has been counseled regarding the side effects and the importance of drug cessation. Additional plan as per the hospital course. Plan discussed with: Patient, Other (RN) JOLENE VERA DO Jun 19, 2025 18:41
[2025-06-20] VITALS (7 sets, daily range): BP systolic 106–157; BP diastolic 38–84; PULSE 73–90; RESP 18–21; TEMP 97.6–98.1; O2SAT 94–98
[2025-06-20 05:29] LABS: Hematocrit 37.5 % (41.0-53.0); Hemoglobin 12.5 g/dL (13.5-17.5); Mean Corpuscular Hemoglobin 27.8 pg (28.0-32.0); Mean Corpuscular Volume 83.5 fL (80.0-100.0); Nucleated Red Blood Cells % 0.0 %
[2025-06-20 05:39] LABS: Chloride 103 mmol/L (98-107); Potassium 4.3 mmol/L (3.5-5.1); Sodium 138 mmol/L (136-145)
[2025-06-20 05:40] LABS: Anion Gap 11 (5-15); Carbon Dioxide 24 mmol/L (20-31)
[2025-06-20 05:41] LABS: Calcium 8.8 mg/dL (8.7-10.4)
[2025-06-20 05:45] LABS: BUN/Creatinine Ratio 19.6 (10.0-20.0); Blood Urea Nitrogen 20 mg/dL (9-23)
[2025-06-20 05:46] LABS: Glucose 247 mg/dL (74-106)
[2025-06-20] MEDS: INSULIN LISPRO (HUMAN) 100 UNITS/ML ML SC SCH (07:14)
--- NOTE | 2025-06-20 21:10 | DVHPN2 ---
Progress Note - Dictate Date Seen: Jun 20, 2025 Has the PT tested + for MRSA If YES, has PT been informed?: No Medical Necessity Reason Pt with a Central, PICC or Fol: No Subjective Patient was seen and evaluated in follow up. No acute events overnight. Patient denies any new complaints. Pain is controlled. Awaiting PT eval. vital signs Vital Sign Date Time Temp Pulse Resp B/P (MAP) Pulse Ox O2 Delivery O2 Flow Rate FiO2 06/20/25 21:00 97.9 80 18 157/84 (108) 97 97.9 06/20/25 08:00 Room Air* 0 21 Total Intake and Output 06/19/25 06/19/25 06/20/25 15:00 23:00 07:00 Intake Total 100 ml 1100 ml 800 ml Output Total 1300 ml Balance 100 ml 1100 ml -500 ml medications Current Medications Medications Dose Ordered Sig/Ray Route Start Time Stop Time Status Last Admin Dose Admin Morphine Sulfate 2 mg Q4HPRN PRN IV 06/19/25 00:30 Sodium Chloride 1,000 ml @ 100 mls/hr Q10H IV 06/19/25 00:30 06/20/25 06:59 100 MLS/HR Pantoprazole Sodium 40 mg DAILY IV 06/19/25 10:00 06/20/25 09:30 40 MG Diagnostic Test (Pha) 1 strip Q6HR 06/19/25 06:00 06/20/25 17:35 1 STRIP Insulin Human Regular Q6HR SC 06/19/25 06:00 06/20/25 18:04 6 UNITS Dextrose 50 ml UD PRN IV 06/19/25 01:00 Insulin Glargine 10 units HS SC 06/20/25 22:00 Insulin Human Lispro 3 units TIDAC SC 06/20/25 07:00 06/20/25 17:35 3 UNITS objective Vitals and nursing notes reviewed. General: In no acute distress. HEENT: Normocephalic, atraumatic, normal reactive pupils, EOM intact, pink conjunctiva, pink moist mucous membrane Respiratory/pulmonary: Bilateral chest expansion, no pain on palpation of chest wall, clear lungs bilaterally, vesicular murmurs present in almost all lung barron, no associated crackles or wheezes. Cardiovascular: Normal RRR, normal S1 and S2, no murmurs Abdomen: Abdomen nondistended, normal bowel sounds, soft, there is no pain to palpation in any of the abdominal quadrants, no palpable masses. Extremities: Pain on palpation of left hip region. No peripheral edema present at the lower extremities, normal pulses. Skin: No rashes or pruritus, there is no sacral edema present at this time. Neurological: Intact cranial nerves with no focal neurologic deficits laboratory and microbiology Laboratory Tests 06/20/25 05:05 Test 06/20/25 05:05 Range/Units Serum Glucose 247 H 74-106 mg/dL Problem List Left femoral neck fracture Uncontrolled Type 2 Diabetes Mellitus with hyperglycemia Amphetamine use Assessment/Plan Continue current supportive medical care. S/p ORIF of left hip fracture 06/[address] Morgan. PT. Non-weightbearing LLE. Regular insulin per protocol. Accu-checks. IV antibiotics for surgical prophylaxis. IVFs with NS at 100 mL/hr. Consistent carb diet. DVT/GI prophylaxis. Pain management prn. Additional plan as per the hospital course. Plan discussed with: Patient, Other (RN) JOLENE VERA DO Jun 20, 2025 21:10
[2025-06-20] MEDS: INSULIN LANTUS (GLARGINE) 1 /0.01ml (100units/ml) SC SCH (22:00)
[2025-06-21] VITALS (8 sets, daily range): BP systolic 104–156; BP diastolic 68–97; PULSE 65–89; RESP 16–20; TEMP 97.1–98.5; O2SAT 94–100
[2025-06-21] MEDS: KETOROLAC TROMETH 30 MG/ML 1ML VIAL IV PRN (10:02)
--- NOTE | 2025-06-21 18:40 | DVHPN2 ---
Progress Note - Dictate Date Seen: Jun 21, 2025 Has the PT tested + for MRSA If YES, has PT been informed?: No Medical Necessity Reason Pt with a Central, PICC or Fol: No Subjective Patient was seen and evaluated in follow up. No acute events overnight. Patient denies any new complaints. Evaluated by PT. Patient has been signing himself out AMA to smoke, he wheels himself outside. vital signs Vital Sign Date Time Temp Pulse Resp B/P (MAP) Pulse Ox O2 Delivery O2 Flow Rate FiO2 06/21/25 17:00 98.1 71 18 145/81 (102) 98 98.1 06/21/25 07:30 Room Air* 0 21 Total Intake and Output 06/20/25 06/20/25 06/21/25 15:00 23:00 07:00 Intake Total 1270 ml 600 ml 850 ml Output Total 900 ml 1000 ml Balance 1270 ml -300 ml -150 ml medications Current Medications Medications Dose Ordered Sig/Ray Route Start Time Stop Time Status Last Admin Dose Admin Morphine Sulfate 2 mg Q4HPRN PRN IV 06/19/25 00:30 Sodium Chloride 1,000 ml @ 100 mls/hr Q10H IV 06/19/25 00:30 06/21/25 17:54 100 MLS/HR Pantoprazole Sodium 40 mg DAILY IV 06/19/25 10:00 06/21/25 10:02 40 MG Diagnostic Test (Pha) 1 strip Q6HR 06/19/25 06:00 06/21/25 12:22 1 STRIP Insulin Human Regular Q6HR SC 06/19/25 06:00 06/21/25 10:20 8 UNITS Dextrose 50 ml UD PRN IV 06/19/25 01:00 Insulin Glargine 10 units HS SC 06/20/25 22:00 Insulin Human Lispro 3 units TIDAC SC 06/20/25 07:00 06/21/25 10:21 3 UNITS Ketorolac Tromethamine 30 mg Q6HPRN PRN IV 06/20/25 23:15 06/25/25 23:14 06/21/25 10:02 30 MG objective Vitals and nursing notes reviewed. General: In no acute distress. HEENT: Normocephalic, atraumatic, normal reactive pupils, EOM intact, pink conjunctiva, pink moist mucous membrane Respiratory/pulmonary: Clear lungs bilaterally, no associated crackles or wheezes. Cardiovascular: Normal RRR, normal S1 and S2, no murmurs Abdomen: Abdomen nondistended, normal bowel sounds, soft, there is no pain to palpation. Extremities: No peripheral edema present at the lower extremities, normal pulses. Skin: No rashes or pruritus, there is no sacral edema present at this time. Neurological: Intact cranial nerves with no focal neurologic deficits laboratory and microbiology Laboratory Tests 06/20/25 05:05 Test 06/20/25 05:05 Range/Units Serum Glucose 247 H 74-106 mg/dL Problem List Left femoral neck fracture Uncontrolled Type 2 Diabetes Mellitus with hyperglycemia Amphetamine use Assessment/Plan Continue current supportive medical care. Erosion Control Specialist consulted for FWW and wheelchair. S/p ORIF of left hip fracture 06/[address] Morgan. PT inpatient as recommended. Non-weightbearing LLE. Regular insulin per protocol. Accu-checks. IVFs with NS at 100 mL/hr. Consistent carb diet. GI prophylaxis. Pain management prn. Additional plan as per the hospital course. Plan discussed with: Patient, Other (RN) JOLENE VERA DO Jun 21, 2025 18:40
[2025-06-21] MEDS: LISINOPRIL 5 MG TAB PO ONE (23:24)
[2025-06-22] VITALS (8 sets, daily range): BP systolic 125–154; BP diastolic 36–103; PULSE 75–107; RESP 16–21; TEMP 96.5–98.3; O2SAT 96–99
--- NOTE | 2025-06-22 09:28 | ECG ---
[facility] Test Date: 2025-06-19 Test Time: 09:07:26 Pat Name: MOIRA SMALL Department: Room: 0236 A Gender: M Finisher Map And Chart: CECI : 1970 Requested By: RAQUEL RUDD Order Number: [id number] Reading MD: Tadeo Roberts Measurements Intervals [place] Rate: 70 P: 40 SC: 160 QRS: 35 QRSD: 92 T: 46 QT: 392 QTc: 423 Interpretive Statements Normal sinus rhythm Electronically Signed On 06-24-2025 19:36:17 PDT by Tadeo Roberts Please click the below link to view image of tracing.
--- NOTE | 2025-06-22 23:06 | DVHPN2 ---
Progress Note - Dictate Date Seen: Jun 22, 2025 Has the PT tested + for MRSA If YES, has PT been informed?: No Medical Necessity Reason Pt with a Central, PICC or Fol: No Subjective Patient was seen and evaluated in follow up. No acute events overnight. Patient denies any new complaints. Pain is controlled. vital signs Vital Sign Date Time Temp Pulse Resp B/P (MAP) Pulse Ox O2 Delivery O2 Flow Rate FiO2 06/22/25 21:00 98.2 87 18 125/79 (94) 97 98.2 06/22/25 08:00 Room Air* 0 21 Total Intake and Output 06/21/25 06/21/25 06/22/25 15:00 23:00 07:00 Intake Total 1430 ml 100 ml Balance 1430 ml 100 ml medications Current Medications Medications Dose Ordered Sig/Ray Route Start Time Stop Time Status Last Admin Dose Admin Morphine Sulfate 2 mg Q4HPRN PRN IV 06/19/25 00:30 Sodium Chloride 1,000 ml @ 100 mls/hr Q10H IV 06/19/25 00:30 06/22/25 18:30 100 MLS/HR Pantoprazole Sodium 40 mg DAILY IV 06/19/25 10:00 06/22/25 09:57 40 MG Diagnostic Test (Pha) 1 strip Q6HR 06/19/25 06:00 06/22/25 18:02 1 STRIP Insulin Human Regular Q6HR SC 06/19/25 06:00 06/22/25 18:04 4 UNITS Dextrose 50 ml UD PRN IV 06/19/25 01:00 Insulin Glargine 10 units HS SC 06/20/25 22:00 06/22/25 22:18 10 UNITS Insulin Human Lispro 3 units TIDAC SC 06/20/25 07:00 06/22/25 17:00 3 UNITS Ketorolac Tromethamine 30 mg Q6HPRN PRN IV 06/20/25 23:15 06/25/25 23:14 06/21/25 23:25 30 MG objective Vitals and nursing notes reviewed. General: In no acute distress. HEENT: Normocephalic, atraumatic, normal reactive pupils, EOM intact, pink conjunctiva, pink moist mucous membrane Respiratory/pulmonary: Clear lungs bilaterally, no associated crackles or wheezes. Cardiovascular: Normal RRR, normal S1 and S2, no murmurs Abdomen: Abdomen nondistended, normal bowel sounds, soft, there is no pain to palpation. Extremities: No peripheral edema present at the lower extremities, normal pulses. Skin: No rashes or pruritus, there is no sacral edema present at this time. Neurological: Intact cranial nerves with no focal neurologic deficits laboratory and microbiology Laboratory Tests 06/20/25 05:05 Test 06/20/25 05:05 Range/Units Serum Glucose 247 H 74-106 mg/dL Problem List Left femoral neck fracture Uncontrolled Type 2 Diabetes Mellitus with hyperglycemia Amphetamine use Assessment/Plan Continue current supportive medical care. Burn Out Tender Lace consulted for FWW and wheelchair. S/p ORIF of left hip fracture 06/[address] Morgan. F/u recs for discharge. PT inpatient as recommended. Non-weightbearing LLE. Regular insulin per protocol. Accu-checks. IVFs with NS at 100 mL/hr. Consistent carb diet. GI prophylaxis. Pain management prn. Additional plan as per the hospital course. Dietary Evaluation Review Comments: Nutrition Recommendation 1) [facility] 75gm diet 2) Refer Immigration Coordinator for diabetes education Expected Outcomes/Goals: Lab values to improve Fu 3-5 days Plan discussed with: Patient, Other (RN) JOLENE VERA DO Jun 22, 2025 23:06
[2025-06-23 01:00] VITALS: BP 123/82; PULSE 76; RESP 18; TEMP 97.8; O2SAT 97
[2025-06-23 05:00] VITALS: BP 124/64; PULSE 83; RESP 17; TEMP 97.8; O2SAT 96
[2025-06-23 08:05] VITALS: O2SAT 97
[2025-06-23 09:00] VITALS: BP 139/89; PULSE 87; RESP 20; TEMP 97.6; O2SAT 96
--- NOTE | 2025-06-23 21:45 | DVHDS2 ---
Discharge Summary Date of Admission Jun 19, 2025 at 00:23 Date of Discharge: Jun 23, 2025 Labs/Diagnostic Data: Laboratory Results Test 06/23/25 05:27 06/20/25 05:05 06/19/25 03:14 06/19/25 00:10 POC Glucose 171 mg/dl (70-106) White Blood Count 15.3 10^3/uL (4.4-10.8) Red Blood Count 4.50 10^6/uL (4.5-5.90) Hemoglobin 12.5 g/dL (13.5-17.5) Hematocrit 37.5 % (41.0-53.0) Mean Corpuscular Volume 83.5 fL (80.0-100.0) Mean Corpuscular Hemoglobin 27.8 pg (28.0-32.0) Mean Corpuscular Hemoglobin Concent 33.3 g/dL (32.0-36.0) Red Cell Distribution Width 13.8 % (11.8-14.3) Platelet Count 317 10^3/uL (140-450) Mean Platelet Volume 8.0 fL (6.9-10.8) Neutrophils (%) (Auto) 87.3 % (37.0-80.0) Lymphocytes (%) (Auto) 7.9 % (10.0-50.0) Monocytes (%) (Auto) 4.7 % (0.0-12.0) Eosinophils (%) (Auto) 0.0 % (0.0-7.0) Basophils (%) (Auto) 0.1 % (0.0-2.0) Neutrophils # (Auto) 13.4 10 ^3/uL (1.6-8.6) Lymphocytes # (Auto) 1.2 10 ^3/uL (0.4-5.4) Monocytes # (Auto) 0.7 10 ^3/uL (0-1.3) Eosinophils # (Auto) 0 10 ^3/uL (0-0.8) Basophils # (Auto) 0 10 ^3/uL (0-0.2) Nucleated Red Blood Cells 0.0 % Sodium Level 138 mmol/L (136-145) Potassium Level 4.3 mmol/L (3.5-5.1) Chloride Level 103 mmol/L (98-107) Carbon Dioxide Level 24 mmol/L (20-31) Anion Gap 11 (5-15) Blood Urea Nitrogen 20 mg/dL (9-23) Creatinine 1.02 mg/dL (0.700-1.30) Glomerular Filtration Rate Calc 86 mL/min (>90) BUN/Creatinine Ratio 19.6 (10.0-20.0) Serum Glucose 247 mg/dL (74-106) Calcium Level 8.8 mg/dL (8.7-10.4) Hepatitis B Surface Antigen Negative (Negative) Hepatitis C Antibody Negative (Negative) Prothrombin Time 10.2 sec (9.3-11.8) Prothrombin Time INR 0.96 (0.9-1.15) Activated Partial Thromboplast Time 26.9 SEC (24.5-34.5) Hemoglobin A1c 10.7 % A1C (<5.7) Phosphorus Level 4.1 mg/dL (2.4-5.1) Total Bilirubin 0.3 mg/dL (0.2-1.0) Aspartate Amino Transferase (AST) 13 U/L (13-40) Alanine Aminotransferase (ALT) 18 U/L (7-40) Alkaline Phosphatase 92 U/L (46-116) Total Protein 7.1 g/dL (5.7-8.2) Albumin 4.1 g/dL (3.2-4.8) Vitamin B12 Level 427 pg/mL (211-911) Vitamin D 25-Hydroxy 33.5 ng/mL (30.0-100) Thyroid Stimulating Hormone (TSH) 2.74 uIU/mL (0.55-4.78) Test 06/18/25 06:41 Urine Color Light-yellow (Yellow) Urine Clarity Clear (Clear) Urine pH 5.5 (5.0-9.0) Urine Specific [place] 1.020 (1.001-1.035) Urine Protein Negative (Negative) Urine Ketones Negative (Negative) Urine Blood Negative /uL (Negative) Urine Nitrite Negative (Negative) Urine Bilirubin Negative (Negative) Urine Urobilinogen Normal mg/dL (Negative) Urine Leukocyte Esterase Negative /uL (Negative) Urine RBC None seen /hpf (0 - 3) Urine Microscopic WBC < 1 /HPF (0-3) Urine Squamous Epithelial Cells Few /hpf (<5) Urine Bacteria Few /hpf (None Seen) Urine Glucose 4+ mg/dL (Normal) Urine Opiates Screen Neg (NEGATIVE) Urine Fentanyl Screen Neg (NEGATIVE) Urine Barbiturates Screen Neg (NEGATIVE) Urine Phencyclidine Screen Neg (NEGATIVE) Urine Amphetamines Screen Pos (NEGATIVE) Urine Benzodiazepines Screen Neg (NEGATIVE) Urine Cocaine Screen Neg (NEGATIVE) Urine Cannabinoids Screen Neg (NEGATIVE) Other Laboratory Tests 06/20/25 05:05 Brief Hx & Hospital Course: Elmer Pickard is a 55-year-old M with a Past Medical History pertinent for Type 2 diabetes mellitus who presented to the hospital with complaint of left hip pain. While in ED, patient was found slightly tachycardic and hypertensive. UDS was positive for Amphetamines. Left femur x-ray showed acute impacted subcapital /femoral neck fracture without dislocation. Orthopedic Surgery consult was placed and patient underwent open reduction and internal fixation of left hip on 06/19/25. Tolerated surgery well. Patient was then evaluate by Physical Therapy. Continued non-weightbearing LLE. used building materials yard worker consult was placed for FWW and wheelchair. Patient continued supportive treatment and was awaiting further treatment/stabilization along with clearance from orthopedics, however, decided to leave Against Medical Advice earlier today. Patient was advised of the risks and benefits of leaving AMA per nursing staff. Patient is discharged AMA. Vitals and nursing notes reviewed. Physical exam prior to discharge not performed as patient left AMA. Consults/Reason for consult Orthopaedic Surgery- Dr. Morgan Operations or Procedures ORIF of left hip fracture 06/19/[address] Morgan. Condition at Discharge: Undetermined Final Diagnosis/Problems List Left femoral neck fracture Secondary Diagnosis: Uncontrolled Type 2 Diabetes Mellitus with hyperglycemia Amphetamine use Discharge Disposition: AMA Discharge Instruct/Medications Scheduled Insulin Aspart (Novolog), 10 UNIT [email or web address] Insulin Glargine (Basaglar Kwikpen), 10 UNIT [email or web address] Discharge Statement: "Patient was advised to return to the ER or call 911 if any headaches, dizziness, shortness of breath, chest pain, abdominal pain, bleeding, fevers, or worsening of medical condition. Patient was counseled about treatment plan, medications, possible side effects, patientverbalized understanding. All questions were answered to the best of my ability. This discharge took greater then 30 minutes in planning, reviewing documentation, counseling the patient, and discussing with other team members." ASSESSMENT ASSESSMENT Assessment JOLENE VERA DO Jun 23, 2025 21:45
--- NOTE | 2025-06-28 16:10 | DVHOP2 ---
Operative Report - 2 Report Details Date: 06/20/25 Preop Diagnosis: Left femoral neck fracture Postop Diagnosis: Left femoral neck fracture Surgeon: Jam Smith MD Core Winder Machine Operator: Andrew MARTINEZ Anesthesiologist: MARIA ELENA Anesthesia: General Implant: StabilizOrtho Consent: The patient was informed of the risks and benefits of the procedure. These include but are not limited to complications of anesthesia, postoperative infection, incomplete relief of symptoms, recurrence of symptoms, damage to blood vessels, nerves and tendons, deep venous thrombosis, pulmonary embolism and possible need for repeat surgery in the future. Estimated Blood Loss: 20 cc Name of Procedure Performed 1. Open reduction internal fixation of left femoral neck fracture; 2. Intraop fluoro Procedure Details Procedure Details: The patient was brought to the operating room and placed supine on a fracture table. The left lower extremity was prepped and draped in the usual sterile fashion. Appropriate anesthesia was administered. Closed reduction of the left femoral neck fracture was performed under fluoroscopic guidance. Traction and gentle manipulation were applied to achieve anatomic alignment, confirmed on both AP and lateral fluoroscopic views. Once satisfactory reduction was obtained, the lateral aspect of the proximal femur was identified and marked. Small stab incisions were made at the planned pin entry sites. Under fluoroscopic guidance, three parallel guide wires were inserted percutaneously across the femoral neck fracture into the femoral head, ensuring appropriate position and spread on both AP and lateral views. After confirming satisfactory guide wire placement, cannulated screws were measured, drilled, and inserted over the guide wires to achieve stable fixation. Final fluoroscopic images confirmed anatomic reduction and appropriate hardware placement, with no evidence of intra-articular penetration. The wounds were irrigated and closed with interrupted nylon sutures. Sterile dressings were applied. The patient tolerated the procedure well and was transferred to the recovery area in stable condition. Condition Good Disposition Still a Patient RAQUEL RUDD MD Jun 28, 2025 16:10
== END 2025-06-23 10:35 | disposition left against medical advice (07) | DRG 482 ==
LOC: ER 13:28 → OVERFLOW 06-19 00:23 → EAST 06-19 03:55
PROVIDERS: ADMIT Internal Medicine Nephrology; ATTEND Internal Medicine Nephrology
PROC: 0QS704Z Reposition Left Upper Femur with Internal Fixation Device, Open Approach (ICD-10-PCS; principal; 2025-06-19 09:13)
DX: S72.012A Unspecified intracapsular fracture of left femur, initial encounter for closed fracture (principal); E11.65 Type 2 diabetes mellitus with hyperglycemia; Z53.29 Procedure and treatment not carried out because of patient's decision for other reasons; F15.90 Other stimulant use, unspecified, uncomplicated; Z79.2 Long term (current) use of antibiotics; Z79.4 Long term (current) use of insulin; Z83.3 Family history of diabetes mellitus; Z82.49 Family history of ischemic heart disease and other diseases of the circulatory system; Z82.3 Family history of stroke; Z80.0 Family history of malignant neoplasm of digestive organs; W01.0XXA Fall on same level from slipping, tripping and stumbling without subsequent striking against object, initial encounter; Y93.89 Activity, other specified; Y92.89 Other specified places as the place of occurrence of the external cause; Y99.8 Other external cause status
CPT/HCPCS: 36415; 71045; 73502; 76000; 80048; 80053; 80307; 81001; 82306; 82607; 82962; 83036; 84100; 84443; 85014; 85018; 85025; 85610; 85730; 86803; 87340; 93005; 97110; 97116; 97163; 97530; G0378; J1100; J1815; J1885; J2250; J2405; J2470; J2704; J3490